=== PATIENT | male | born 1970 | race American Indian/Alaskan Native ===

== ENCOUNTER 2017-07-07 18:07 | Emergency (ER) | payer MEDICAID, MEDICARE ==
[2017-07-07 19:17] LABS: Urine Drugs of Abuse Note Disclamer
[2017-07-07 19:24] LABS: Bilirubin,Urine NEG (Negative); Blood,Urine NEG (Negative); Ketones,Urine NEG (Negative); Leukocyte Esterase,Urine NEG (Negative); Nitrite,Urine NEG (Negative); Protein,Urine <15 mg/dL mg/dL (Negative); RBC,Urine < 1.0 /HPF (0.0-6.0); Urobilinogen,Urine < 2.0 mg/dL (<2.0); WBC,Urine < 1.0 /HPF (0.0-6.0)
[2017-07-07 20:27] LABS: Anion Gap TNR mmol/L; BUN/Creatinine Ratio TNR; Blood Urea Nitrogen TNR mg/dL (9-20); Carbon Dioxide TNR mmol/L (22-30); Chloride TNR mmol/L (98-107); Potassium TNR mmol/L (3.6-5.0); Sodium TNR mmol/L (137-145)
[2017-07-07 20:28] LABS: Calcium TNR mg/dL (8.4-10.2); Glucose TNR mg/dL (75-100)
[2017-07-07 20:29] LABS: Hematocrit 43.4 % (35.5-45.6); Mean Corpuscular HGB Conc 32 % (32-34); Mean Corpuscular Hemoglobin 28 pg (28-32); Mean Corpuscular Volume 86 fl (84-94); Platelet Count 180 K/mm3 (140-440); Red Blood Count 5.06 M/mm3 (3.65-5.03); Red Cell Distribution Width 14.6 % (13.2-15.2); White Blood Count 9.2 K/mm3 (4.5-11.0)
[2017-07-07 20:55] LABS: Anion Gap 23 mmol/L; BUN/Creatinine Ratio 18; Blood Urea Nitrogen 14 mg/dL (9-20); Carbon Dioxide 25 mmol/L (22-30); Chloride 92.5 mmol/L (98-107); Glucose 89 mg/dL (75-100); Potassium 4.1 mmol/L (3.6-5.0); Sodium 136 mmol/L (137-145)
--- NOTE | 2017-07-08 03:23 | Emergency Department Report ---
HPI - General Chief Complaint: Psych Time Seen by Provider: 07/07/17 21:58 - HPI HPI: The patient's 47-year-old male who presents for evaluation of mental health. The patient reports 1 week of constant severe sadness and depression, improved with rest, associated with suicidal ideation. The patient reports hopelessness as well. He denies a plan to commit suicide.The patient denies fever, headache , unexplained weight loss or weight gain, heat or cold intolerance, skin, hair, or nail changes, neuro deficits, homicidal ideations, or auditory or visual hallucinations. ED Past Medical Hx - Past Medical History Previous Medical History?: Yes Hx Hypertension: Yes Hx Psychiatric Treatment: Yes Hx Asthma: Yes Additional medical history: Bipolar, Schizophrenia, gastric ulcers - Surgical History Past Surgical History?: Yes Additional Surgical History: testicular torsion - Social History Smoking Status: Unknown if ever smoked - Medications Home Medications: Home Medications Medication Instructions Recorded Confirmed Last Taken Type No Known Home Medications [No 07/08/17 07/08/17 Unknown History Reported Home Medications] ED Review of Systems ROS: Stated complaint: EVAL Other details as noted in HPI Constitutional: denies: fever ENT: denies: throat or neck pain Respiratory: denies: cough, shortness of breath Cardiovascular: denies: chest pain Endocrine: denies unexplained weight loss or gain Gastrointestinal: denies: abdominal pain, nausea Genitourinary: denies: dysuria Musculoskeletal: denies: leg swelling Skin: denies: rash Neurological: denies: headache Hematological/Lymphatic: denies: easy bleeding or easy bruising Psych: reports sadness or hopelessness Physical Exam - Physical Exam Vital Signs: Vital Signs 07/07/17 07/07/17 07/08/17 19:01 19:02 02:43 Temperature 97.7 F 98.0 F Pulse Rate 87 70 Respiratory 18 18 18 Rate Blood Pressure 173/126 144/92 [Left] O2 Sat by Pulse 94 94 99 Oximetry Physical Exam: General: well-nourished, well-developed, no acute distress Head: Normocephalic, atraumatic Eyes: normal sclera ENT: Mucous membranes are pink and moist Neck: trachea midline, neck supple, No neck stiffness, no cervical adenopathy Respiratory: Breath sounds equal bilaterally, no wheezing, rales, or rhonchi Cardio: S1 and S2 present, no murmurs, rubs, gallops, capillary refill is brisk Abdomen: Normoactive bowel sounds, soft abdomen, no rigidity, no guarding or rebound tenderness Musc: No pitting edema Skin: No rash Neuro: no facial drooping, normal speech Psych: Flat affect, depressed mood, positive suicidal ideation, poor insight ED Course Vital Signs 07/07/17 07/07/17 07/08/17 19:01 19:02 02:43 Temperature 97.7 F 98.0 F Pulse Rate 87 70 Respiratory 18 18 18 Rate Blood Pressure 173/126 144/92 [Left] O2 Sat by Pulse 94 94 99 Oximetry ED Medical Decision Making - Lab Data Result diagrams: 07/07/17 20:15 07/07/17 20:20 - Medical Decision Making The patient was seen and examined by myself. The patient is placed on a monitor and storage bin tender and continuous pulse ox. On initial evaluation, the patient was found to be in no distress. Labs are obtained. Lab results revealed elevated EtOH level of 0.21, and otherwise labs are grossly unremarkable. The patient is medically clear. Mental health is consulted. Mental health evaluates the patient and agrees that the patient is at risk of harm to self. A 1013 is completed. The patient will be admitted to a psychiatric facility once bed placement is obtained. Critical care attestation.: If time is entered above; I have spent that time in minutes in the direct care of this critically ill patient, excluding procedure time. ED Disposition Clinical Impression: Suicidal ideation, Alcohol abuse Depressed Qualifiers: Depression Type: major depressive disorder Major depression recurrence: single episode Active/Remission status: currently active Major depression episode severity: severe Psychotic features: without psychotic features Qualified Code(s ): F32.2 - Major depressive disorder, single episode, severe without psychotic features Disposition: DC/TX-65 PSY HOSP/PSY UNIT Is pt being admited?: No Does the pt Need Aspirin: No Condition: Stable Referrals: PRIMARY CARE [Primary Care Provider] - 3-5 Days Time of Disposition: 03:22
[2017-07-08] MEDS ORDERED: ALUM-MAG HYDROX-SIMETH 200-200-20MG/5ML PO PRN (09:00)
[2017-07-08] MEDS ORDERED: TYLENOL PO PRN (09:00)
[2017-07-08] MEDS ORDERED: MILK OF MAGNESIA PO PRN (10:00)
[2017-07-08] MEDS ORDERED: CATAPRES PO ONE (21:30)
[2017-07-08] MEDS ORDERED: CATAPRES ONE (21:35)
[2017-07-08 21:41] VITALS: BP 162/103
== END 2017-07-08 20:05 ==
LOC: ED 18:07 → EEVIPCON 18:07 → ED 07-08 20:05
DX: R45.851 Suicidal ideations (principal); F10.10 Alcohol abuse, uncomplicated; F32.9 Major depressive disorder, single episode, unspecified; I10 Essential (primary) hypertension; J45.909 Unspecified asthma, uncomplicated; F20.9 Schizophrenia, unspecified
CPT/HCPCS: 36415; 80048; 80307; 81001; 85025; 99284; G0480; 80320

== ENCOUNTER 2017-10-04 13:52 | Emergency (ER) | payer MEDICARE, MEDICAID ==
[2017-10-04 15:31] LABS: Bilirubin,Urine NEG (Negative); Blood,Urine NEG (Negative); Color,Urine Red (Yellow); Protein,Urine <15 mg/dL mg/dL (Negative); Urobilinogen,Urine < 2.0 mg/dL (<2.0)
[2017-10-04 15:34] LABS: Amphetamine Screen,Urine PRESUMPTIVE NEGATIVE; Benzodiazepines Screen,Urine PRESUMPTIVE NEGATIVE; Cannabinoid Screen,Urine PRESUMPTIVE NEGATIVE; Cocaine Screen,Urine PRESUMPTIVE NEGATIVE; Methadone Screen,Urine PRESUMPTIVE NEGATIVE; Opiate Screen,Urine PRESUMPTIVE NEGATIVE
[2017-10-04 17:31] LABS: BUN/Creatinine Ratio 14; Blood Urea Nitrogen 11 mg/dL (9-20); Calcium 8.7 mg/dL (8.4-10.2); Hemolysis Index 39
[2017-10-04 17:32] LABS: Basophils % (Auto) 0.3 % (0.0-1.8); Eosinophils # (Auto) 0.1 K/mm3 (0.0-0.4); Eosinophils % (Auto) 1.1 % (0.0-4.3); Hematocrit 45.6 % (35.5-45.6); Hemoglobin 14.9 gm/dl (11.8-15.2); Lymphocytes # (Auto) 2.5 K/mm3 (1.2-5.4); Lymphocytes % (Auto) 29.6 % (13.4-35.0); Mean Corpuscular HGB Conc 33 % (32-34); Mean Corpuscular Hemoglobin 28 pg (28-32); Mean Corpuscular Volume 86 fl (84-94); Monocytes # (Auto) 0.5 K/mm3 (0.0-0.8); Monocytes % (Auto) 5.5 % (0.0-7.3); Platelet Count 221 K/mm3 (140-440); Red Blood Count 5.31 M/mm3 (3.65-5.03); Red Cell Distribution Width 14.7 % (13.2-15.2)
--- NOTE | 2017-10-04 18:07 | Emergency Department Report ---
HPI - General Chief Complaint: Psych Time Seen by Provider: 10/04/17 17:29 - HPI HPI: The patient a 47-year-old male who presents for evaluation of mental health. The patient reports constant and severe sadness and depression exacerbated with alcohol use. He states that he has previously experienced suicidal ideation prior to my eval but that he has been free of suicidal ideation since arriving to the ER. He states that he had no plan of how he might commit suicide. The patient denies fever, headache, unexplained weight loss or weight gain, heat or cold intolerance, skin, hair, or nail changes, neuro deficits, homicidal ideations, or auditory or visual hallucinations. He also states that he would like assistance with detox. ED Past Medical Hx - Past Medical History Hx Hypertension: Yes Hx Psychiatric Treatment: Yes Hx Asthma: Yes Additional medical history: Bipolar, Schizophrenia, gastric ulcers - Surgical History Additional Surgical History: testicular torsion - Social History Smoking Status: Never Smoker Substance Use Type: Alcohol - Medications Home Medications: Home Medications Medication Instructions Recorded Confirmed Last Taken Type Acamprosate Calcium 333 mg PO TID 07/08/17 07/08/17 Unknown History Antacid [Alum-Mag Hydrox-Simeth 30 ml PO Q6HR PRN 07/08/17 07/08/17 Unknown History [id number]/5Ml Susp] Bismuth Subsalicylate 262 mg PO QDAY PRN 07/08/17 07/08/17 Unknown History [Pepto-Bismol] Cefdinir 300 mg PO Q12H 07/08/17 07/08/17 Unknown History Citalopram [celeXA] 20 mg PO QDAY 07/08/17 07/08/17 Unknown History Disulfiram (Nf) [Antabuse (Nf)] 250 mg PO DAILY 07/08/17 07/08/17 Unknown History Docusate Sodium [Colace] 100 mg PO BID PRN 07/08/17 07/08/17 Unknown History Fluticasone [Flonase] 1 spray NS QDAY 07/08/17 07/08/17 Unknown History Hydrochlorothiazide [HCTZ] 25 mg PO QDAY 07/08/17 07/08/17 Unknown History Lisinopril [Zestril TAB] 40 mg PO QDAY 07/08/17 07/08/17 Unknown History Loperamide [Imodium] 2 mg PO QID 07/08/17 07/08/17 Unknown History Meclizine [Antivert] 25 mg PO TID PRN 07/08/17 07/08/17 Unknown History Multivitamin [Multiple Vitamins] 1 each PO QDAY 07/08/17 07/08/17 Unknown History Naproxen [Naprosyn] 500 mg PO BID PRN 07/08/17 07/08/17 Unknown History Neomycin/Bacitracin/Polymyxinb 1 each TP QID 07/08/17 07/08/17 Unknown History [Triple Antibiotic Ointment] QUEtiapine [SEROquel] 200 mg PO QHS 07/08/17 07/08/17 Unknown History cloNIDine [Catapres] 0.1 mg PO QDAY 07/08/17 07/08/17 Unknown History diphenhydrAMINE [Benadryl CAP] 50 mg PO Q4HR PRN 07/08/17 07/08/17 Unknown History guaiFENesin [Mucinex] 1,200 mg PO Q12HR 07/08/17 07/08/17 Unknown History ED Review of Systems ROS: Stated complaint: SUICIDAL THOUGHTS Other details as noted in HPI Constitutional: denies: fever ENT: denies: throat or neck pain Respiratory: denies: cough, shortness of breath Cardiovascular: denies: chest pain Endocrine: denies unexplained weight loss or gain Gastrointestinal: denies: abdominal pain, nausea Genitourinary: denies: dysuria Musculoskeletal: denies: leg swelling Skin: denies: rash Neurological: denies: headache Hematological/Lymphatic: denies: easy bleeding or easy bruising Psych: reports sadness or hopelessness Physical Exam - Physical Exam Vital Signs: Vital Signs 10/04/17 14:59 Temperature 97.8 F Pulse Rate 78 Respiratory 16 Rate Blood Pressure 137/91 O2 Sat by Pulse 99 Oximetry Physical Exam: General: well-nourished, well-developed, no acute distress Head: Normocephalic, atraumatic Eyes: normal sclera ENT: Mucous membranes are pink and moist Neck: trachea midline, neck supple, No neck stiffness, no cervical adenopathy Respiratory: Breath sounds equal bilaterally, no wheezing, rales, or rhonchi Cardio: S1 and S2 present, no murmurs, rubs, gallops, capillary refill is brisk Abdomen: Normoactive bowel sounds, soft abdomen, no tenderness Musc: No pitting edema Skin: No rash Neuro: no facial drooping, normal speech Psych: Normal affect, depressed mood, tearful, normal insight, normal behavior, no current suicidal or homicidal ideations, no hallucinations ED Course Vital Signs 10/04/17 14:59 Temperature 97.8 F Pulse Rate 78 Respiratory 16 Rate Blood Pressure 137/91 O2 Sat by Pulse 99 Oximetry ED Medical Decision Making - Lab Data Result diagrams: 10/04/17 16:47 10/04/17 16:47 - Medical Decision Making The patient was seen and examined by myself. The patient is placed on a director of cardiac cath lab and continuous pulse ox. On initial evaluation, the patient was found to be in no distress. Labs are obtained. Lab results revealed elevated alcohol level of 0.21 collected at 1650, and otherwise are grossly unremarkable. The patient is medically clear. Mental health is consulted. Mental health evaluates the patient and agrees that the patient is negative for signs concerning for risk of harm to himself. Mental health provided the patient with resources for outpatient rehab. Repeat alcohol level will be collected at 4 AM. If the patient's etoh level has normalized and the patient is clinically sober, he'll be discharged home. The patient signed out to the night physician. Critical care attestation.: If time is entered above; I have spent that time in minutes in the direct care of this critically ill patient, excluding procedure time. ED Disposition Clinical Impression: Depression, acute, Dehydration, ETOH abuse Disposition: DC-01 TO HOME OR SELFCARE Is pt being admited?: No Does the pt Need Aspirin: No Condition: Stable Instructions: Depression (ED), Abuse of Alcohol (ED), Suicide Prevention for Adults (ED) Referrals: PRIMARY CARE, [Primary Care Provider] - 3-5 Days [facility] [Outside] - 3-5 Days Time of Disposition: 19:11
[2017-10-04] MEDS ORDERED: VITAMIN B-1 100 MG, FOLVITE 1 MG, INFUVITE 10 ML in NACL 0.9% 1000 ML 1,000 ML IV ONE (19:00)
[2017-10-05] MEDS: KEPPRA PO SCH ×3 (11:02→21:02)
--- NOTE | 2017-10-05 15:04 | Consultation ---
History of Present Illness - Reason for Consult Consult date: 10/05/17 Reason for consult: Mental Health Evaluation Requesting physician: FEDE WAY - Chief Complaint Chief complaint: "I want help" - History of Present Psychiatric Illness The patient a 47-year-old male who presents for evaluation of mental health. The patient reports constant and severe sadness and depression exacerbated with alcohol use. Today the patient is calm and cooperative during the assessment. He stated that he is dealing with a lot of family issues reference his daughter and granddaughter. He stated that he has increased his drinking (etoh) on the weekends because he think about his family issues he is experiencing. He stated drinking alcohol for 20 plus years with multiple rehabs services in the past. He stated having suicidal thoughts that has transitioned to SI's without a plan. He stated that he was dx with Bipolar DO several years ago and take Seroquel and Celexa. He denies HI's and AVH's now, but stated hearing voices in the past. He denies erratic sleep and a poor appetite. He denies any manic episodes recently. He denies recreational drug use. Discussed with the patient Celexa and Seroquel can cause severe QTC prolongation. I explained to the patient the safety concern reference taking both medications. He stated that he would like to continue taking the Seroquel. Medications and Allergies Allergies Allergy/AdvReac Type Severity Reaction Status Date / Time haloperidol [From Haldol] Allergy Unknown Verified 07/07/17 19:04 ibuprofen [From Motrin] Allergy Unknown Verified 07/07/17 19:04 Home Medications Medication Instructions Recorded Confirmed Last Taken Type Acamprosate Calcium 333 mg PO TID 07/08/17 07/08/17 Unknown History Antacid [Alum-Mag Hydrox-Simeth 30 ml PO Q6HR PRN 07/08/17 07/08/17 Unknown History [id number]/5Ml Susp] Bismuth Subsalicylate 262 mg PO QDAY PRN 07/08/17 07/08/17 Unknown History [Pepto-Bismol] Cefdinir 300 mg PO Q12H 07/08/17 07/08/17 Unknown History Citalopram [celeXA] 20 mg PO QDAY 07/08/17 07/08/17 Unknown History Disulfiram (Nf) [Antabuse (Nf)] 250 mg PO DAILY 07/08/17 07/08/17 Unknown History Docusate Sodium [Colace] 100 mg PO BID PRN 07/08/17 07/08/17 Unknown History Fluticasone [Flonase] 1 spray NS QDAY 07/08/17 07/08/17 Unknown History Hydrochlorothiazide [HCTZ] 25 mg PO QDAY 07/08/17 07/08/17 Unknown History Lisinopril [Zestril TAB] 40 mg PO QDAY 07/08/17 07/08/17 Unknown History Loperamide [Imodium] 2 mg PO QID 07/08/17 07/08/17 Unknown History Meclizine [Antivert] 25 mg PO TID PRN 07/08/17 07/08/17 Unknown History Multivitamin [Multiple Vitamins] 1 each PO QDAY 07/08/17 07/08/17 Unknown History Naproxen [Naprosyn] 500 mg PO BID PRN 07/08/17 07/08/17 Unknown History Neomycin/Bacitracin/Polymyxinb 1 each TP QID 07/08/17 07/08/17 Unknown History [Triple Antibiotic Ointment] QUEtiapine [SEROquel] 200 mg PO QHS 07/08/17 07/08/17 Unknown History cloNIDine [Catapres] 0.1 mg PO QDAY 07/08/17 07/08/17 Unknown History diphenhydrAMINE [Benadryl CAP] 50 mg PO Q4HR PRN 07/08/17 07/08/17 Unknown History guaiFENesin [Mucinex] 1,200 mg PO Q12HR 07/08/17 07/08/17 Unknown History Active Meds: Active Medications Levetiracetam (Keppra) 500 mg PO TID [facility] Last Admin: 10/05/17 11:02 Dose: 500 mg Past psychiatric history - Past Medical History Past Medical History: seizures Past Surgical History: No surgical history - past Psychiatric treatment and history Psych: Bipolar psychiatric treatment history: Multiple inpatient psy setting in the past. Denies a fam psy hx. - Social History Social history: lives with family Mental Status Exam - Vital signs Last Vital Signs Temp 98.2 F 10/04/17 20:00 Pulse 88 10/04/17 20:00 Resp 19 10/04/17 20:00 BP 150/85 10/04/17 20:00 Pulse Ox 98 10/04/17 20:00 - Exam Narrative exam: MSE: Appearance: calm, cooperative Behavior: poor eye contact Speech: regular rate and tone Mood: "depressed" Affect: flat Thought Process: circumstantial Thought Content: denies HI's and AVH's Motor Activity: ambulatory Cognition: A/O x3 Insight: variable Judgment: variable Results Result Diagrams: 10/04/17 16:47 10/04/17 16:47 Abnormal lab results 10/04/17 10/04/17 10/04/17 Range/Units 16:47 16:47 16:47 RBC (3.65-5.03) M/mm3 Sodium 132 L (137-145) mmol/L Chloride 92.4 L (98-107) mmol/L Carbon Dioxide 20 L (22-30) mmol/L Glucose 74 L (75-100) mg/dL Salicylates < 0.3 L (2.8-20.0) mg/dL Plasma/Serum Alcohol 0.21 H (0-0.07) % 10/04/17 Range/Units 16:47 RBC 5.31 H (3.65-5.03) M/mm3 Sodium (137-145) mmol/L Chloride (98-107) mmol/L Carbon Dioxide (22-30) mmol/L Glucose (75-100) mg/dL Salicylates (2.8-20.0) mg/dL Plasma/Serum Alcohol (0-0.07) % All other labs normal. Assessment and Plan Assessment and plan: Impression: Hx of Bipolar DO. Alcohol Use DO. Alcohol intoxication on admission. Today the patient is calm and cooperative during the assessment. The patient endorses SI's. DDx: Schizoaffective DO, R/O Alcohol Induced Mood DO Recommendation/Plan: Continue 1013 with placement to inpatient psy services. Start Seroquel 300 mg PO HS for mood. Discussed possible metabolic side effects of Seroquel with patient.
[2017-10-05] MEDS ORDERED: CATAPRES PO ONE (17:44)
[2017-10-05] MEDS ORDERED: ZESTRIL PO SCH (18:00)
[2017-10-06] MEDS: KEPPRA PO SCH ×3 (09:09→21:40)
--- NOTE | 2017-10-06 10:20 | Progress Note ---
Subjective - Reason for Consult Consult date: 10/06/17 Reason for consult: Psychiatry Follow-up - Chief Complaint Chief complaint: "Hello" The patient a 47-year-old male who presents for evaluation of mental health. The patient reports constant and severe sadness and depression exacerbated with alcohol use. Today the patient is calm and cooperative during the assessment. He stated that he still feel suicidal and is adamant about wanting to stop drinking (etoh). He stated that his "mental health" is priority at this time. He denies HI's and AVH's. He denies any side effects of his medication. Mental Status Exam - Vital signs Last Vital Signs Temp 97.7 F 10/06/17 08:28 Pulse 94 H 10/06/17 08:28 Resp 18 10/06/17 10:01 BP 131/94 10/06/17 08:28 Pulse Ox 100 10/06/17 08:28 - Exam Narrative exam: MSE: Appearance: calm, cooperative Behavior: regular eye contact Speech: regular rate and tone Mood: "okay" Affect: flat Thought Process: circumstantial Thought Content: denies HI's and AVH's Motor Activity: ambulatory Cognition: A/O x3 Insight: variable Judgment: variable Assessment and Plan Impression: Hx of Bipolar DO. Alcohol Use DO. Alcohol intoxication on admission. Today the patient is calm and cooperative during the assessment. The patient endorses SI's without a plan. DDx: Schizoaffective DO, R/O Alcohol Induced Mood DO Recommendation/Plan: Continue 1013 with placement to inpatient psy services. Continue Seroquel 300 mg PO HS for mood. Discussed possible metabolic side effects of Seroquel with patient.
[2017-10-07] MEDS: KEPPRA PO SCH ×3 (08:14→20:53)
[2017-10-07 20:51] VITALS: BP 143/109
== END 2017-10-08 01:09 | disposition home or self-care (01) ==
LOC: ED 13:52 → EEVIPCON 13:52 → ED 10-08 01:09
DX: F32.9 Major depressive disorder, single episode, unspecified (principal); E86.0 Dehydration; I10 Essential (primary) hypertension; J45.909 Unspecified asthma, uncomplicated; F10.10 Alcohol abuse, uncomplicated
CPT/HCPCS: 36415; 80048; 80307; 81001; 85025; 96365; 96366; 99285; G0480; J3411; J7030; 80320

== ENCOUNTER 2019-03-12 20:33 | Emergency (ER) | payer MEDICARE ==
[2019-03-12 21:43] VITALS: BP 133/87
--- NOTE | 2019-03-12 22:04 | Emergency Department Report ---
ED General Adult HPI - General Chief complaint: Alcohol Stated complaint: MH EVAL Time Seen by Provider: 03/12/19 21:59 Source: EMS Mode of arrival: Stretcher Limitations: No Limitations - History of Present Illness Initial comments: 48 y.o. male with history of alcohol abuse and obesity with recent discharge from rehab yesterday presents after fall. Patient states that he fell on his but. Family was unable to get him up and call EMS. Patient has had multiple drinks today. patient denies LOC. patient has had no chest pain or shortness of breath. Patient denies extremity pain or neck pain. Patient ambulatory in the ER. - Related Data Home Medications Medication Instructions Recorded Confirmed Last Taken Acamprosate Calcium 333 mg PO TID 07/08/17 10/07/17 Unknown Antacid [Alum-Mag Hydrox-Simeth 30 ml PO Q6HR PRN 07/08/17 10/07/17 Unknown [id number]/5Ml Susp] Bismuth Subsalicylate 262 mg PO QDAY PRN 07/08/17 10/07/17 Unknown [Pepto-Bismol] Citalopram [celeXA] 20 mg PO QDAY 07/08/17 10/07/17 Unknown Docusate Sodium [Colace] 100 mg PO BID PRN 07/08/17 10/07/17 Unknown Fluticasone [Flonase] 1 spray NS QDAY 07/08/17 10/07/17 Unknown Loperamide [Imodium] 2 mg PO QID 07/08/17 10/07/17 Unknown Naproxen [Naprosyn] 500 mg PO BID PRN 07/08/17 10/07/17 Unknown QUEtiapine [SEROquel] 200 mg PO QHS 07/08/17 10/07/17 Unknown cloNIDine [Catapres] 0.1 mg PO QDAY 07/08/17 10/07/17 Unknown guaiFENesin [Mucinex] 1,200 mg PO Q12HR 07/08/17 10/07/17 Unknown hydroCHLOROthiazide [HCTZ] 25 mg PO QDAY 07/08/17 10/07/17 Unknown Allergies Allergy/AdvReac Type Severity Reaction Status Date / Time haloperidol [From Haldol] Allergy Unknown Verified 07/07/17 19:04 ibuprofen [From Motrin] Allergy Unknown Verified 07/07/17 19:04 ED Review of Systems ROS: Stated complaint: MH EVAL Other details as noted in HPI Constitutional: denies: chills, fever Eyes: denies: eye pain, eye discharge, vision change ENT: denies: ear pain, throat pain Respiratory: denies: cough, shortness of breath, wheezing Cardiovascular: denies: chest pain, palpitations Endocrine: no symptoms reported Gastrointestinal: denies: abdominal pain, nausea, diarrhea Genitourinary: denies: urgency, dysuria Musculoskeletal: denies: back pain, joint swelling, arthralgia Skin: denies: rash, lesions Neurological: denies: headache, weakness, paresthesias Psychiatric: denies: anxiety, depression Hematological/Lymphatic: denies: easy bleeding, easy bruising ED Past Medical Hx - Past Medical History Previous Medical History?: Yes Hx Hypertension: Yes Hx Psychiatric Treatment: Yes Hx Asthma: Yes Additional medical history: Bipolar, Schizophrenia, gastric ulcers - Surgical History Past Surgical History?: Yes Additional Surgical History: testicular torsion - Social History Smoking Status: Current Every Day Smoker Substance Use Type: Alcohol - Medications Home Medications: Home Medications Medication Instructions Recorded Confirmed Last Taken Type Acamprosate Calcium 333 mg PO TID 07/08/17 10/07/17 Unknown History Antacid [Alum-Mag Hydrox-Simeth 30 ml PO Q6HR PRN 07/08/17 10/07/17 Unknown History [id number]/5Ml Susp] Bismuth Subsalicylate 262 mg PO QDAY PRN 07/08/17 10/07/17 Unknown History [Pepto-Bismol] Citalopram [celeXA] 20 mg PO QDAY 07/08/17 10/07/17 Unknown History Docusate Sodium [Colace] 100 mg PO BID PRN 07/08/17 10/07/17 Unknown History Fluticasone [Flonase] 1 spray NS QDAY 07/08/17 10/07/17 Unknown History Loperamide [Imodium] 2 mg PO QID 07/08/17 10/07/17 Unknown History Naproxen [Naprosyn] 500 mg PO BID PRN 07/08/17 10/07/17 Unknown History QUEtiapine [SEROquel] 200 mg PO QHS 07/08/17 10/07/17 Unknown History cloNIDine [Catapres] 0.1 mg PO QDAY 07/08/17 10/07/17 Unknown History guaiFENesin [Mucinex] 1,200 mg PO Q12HR 07/08/17 10/07/17 Unknown History hydroCHLOROthiazide [HCTZ] 25 mg PO QDAY 07/08/17 10/07/17 Unknown History ED Physical Exam - General Limitations: No Limitations General appearance: alert, in no apparent distress, other (ambulatory; smells of ETOH but alert; obese) - Head Head exam: Present: atraumatic, normocephalic - Eye Eye exam: Present: normal appearance - ENT ENT exam: Present: mucous membranes moist - Neck Neck exam: Present: normal inspection - Respiratory Respiratory exam: Present: normal lung sounds bilaterally. Absent: respiratory distress - Cardiovascular Cardiovascular Exam: Present: regular rate, normal rhythm. Absent: systolic mur mur, diastolic murmur, rubs, gallop - GI/Abdominal GI/Abdominal exam: Present: soft, normal bowel sounds - Rectal Rectal exam: Present: deferred - Extremities Exam Extremities exam: Present: normal inspection - Back Exam Back exam: Present: normal inspection - Neurological Exam Neurological exam: Present: alert, oriented X3, CN II-XII intact, normal gait - Psychiatric Psychiatric exam: Present: normal affect, normal mood - Skin Skin exam: Present: warm, dry, intact, normal color. Absent: rash ED Course Vital Signs 03/12/19 03/12/19 21:41 21:54 Temperature 97.7 F Pulse Rate 68 Respiratory 16 16 Rate Blood Pressure 133/87 O2 Sat by Pulse 97 97 Oximetry ED Medical Decision Making - Medical Decision Making Patient ambulatory and in no acute distress. Patient to be discharged to follow up with PCP. Critical care attestation.: If time is entered above; I have spent that time in minutes in the direct care of this critically ill patient, excluding procedure time. ED Disposition Clinical Impression: Alcohol abuse Disposition: DC-01 TO HOME OR SELFCARE Is pt being admited?: No Does the pt Need Aspirin: No Condition: Stable Instructions: Abuse of Alcohol (ED) Referrals: PRIMARY CARE, [Primary Care Provider] - 3-5 Days EVIN JAMES MD [Staff Physician] - 3-5 Days Time of Disposition: 22:07 Print Language: M[place]ENEGR[place]
== END 2019-03-12 23:08 | disposition home or self-care (01) ==
LOC: EEVIPCON 20:33 → ED 20:33
DX: F10.10 Alcohol abuse, uncomplicated (principal); I10 Essential (primary) hypertension; J45.909 Unspecified asthma, uncomplicated; F25.0 Schizoaffective disorder, bipolar type; F17.200 Nicotine dependence, unspecified, uncomplicated; Z79.899 Other long term (current) drug therapy; Z88.8 Allergy status to other drugs, medicaments and biological substances
CPT/HCPCS: 99283

== ENCOUNTER 2021-01-16 01:18 | Emergency (ER) | payer MEDICARE ==
[2021-01-16 01:54] LABS: Basophils # (Auto) 0.1 K/mm3 (0.0-0.1); Basophils % (Auto) 0.8 % (0.0-1.8); Eosinophils # (Auto) 0.2 K/mm3 (0.0-0.4); Eosinophils % (Auto) 3.1 % (0.0-4.3); Hematocrit 37.1 % (35.5-45.6); Hemoglobin 12.5 gm/dl (11.8-15.2); Lymphocytes # (Auto) 2.3 K/mm3 (1.2-5.4); Lymphocytes % (Auto) 33.8 % (13.4-35.0); Mean Corpuscular HGB Conc 34 % (32-34); Mean Corpuscular Volume 85 fl (84-94); Monocytes # (Auto) 0.5 K/mm3 (0.0-0.8); Monocytes % (Auto) 6.8 % (0.0-7.3); Platelet Count 199 K/mm3 (140-440); Red Blood Count 4.35 M/mm3 (3.65-5.03); Red Cell Distribution Width 15.6 % (13.2-15.2)
[2021-01-16 02:14] LABS: BUN/Creatinine Ratio 11; Blood Urea Nitrogen 10 mg/dL (9-20); Calcium 8.5 mg/dL (8.4-10.2); Hemolysis Index 4
[2021-01-16 02:53] LABS: Bacteria,Urine 1+ /HPF (Negative); Bilirubin,Urine NEG (Negative); Blood,Urine NEG (Negative); Color,Urine Colorless (Yellow); Mucus,Urine FEW /HPF; Protein,Urine <15 mg/dL mg/dL (Negative); Urobilinogen,Urine < 2.0 mg/dL (<2.0)
[2021-01-16 02:54] LABS: Amphetamine Screen,Urine Negative; Benzodiazepines Screen,Urine Negative; Cannabinoid Screen,Urine Negative; Cocaine Screen,Urine Negative; Methadone Screen,Urine Negative; Opiate Screen,Urine Negative
--- NOTE | 2021-01-16 03:30 | Emergency Department Report ---
ED Psych HPI - General Chief Complaint: Psych Stated Complaint: MH Time Seen by Provider: 01/16/21 03:03 Source: patient, EMS Mode of arrival: Ambulatory - History of Present Illness Initial Comments: Patient is a 50-year-old male past medical history of schizophrenia who presents with suicidal ideation he says the voices in his head are trying to tell him to kill himself. Patient does not have a defined plan on how he is going to hurt himself. He states that he has been off his medication he denies having any pain or any nausea. MD Complaint: suicidal ideation - Related Data Home Medications Medication Instructions Recorded Confirmed Last Taken Acamprosate Calcium 333 mg PO TID 07/08/17 10/07/17 Unknown Antacid [Alum-Mag Hydrox-Simeth 30 ml PO Q6HR PRN 07/08/17 10/07/17 Unknown [id number]/5Ml Susp] Bismuth Subsalicylate 262 mg PO QDAY PRN 07/08/17 10/07/17 Unknown [Pepto-Bismol] Citalopram [celeXA] 20 mg PO QDAY 07/08/17 10/07/17 Unknown Docusate Sodium [Colace] 100 mg PO BID PRN 07/08/17 10/07/17 Unknown Fluticasone [Flonase] 1 spray NS QDAY 07/08/17 10/07/17 Unknown Loperamide [Imodium] 2 mg PO QID 07/08/17 10/07/17 Unknown Naproxen [Naprosyn] 500 mg PO BID PRN 07/08/17 10/07/17 Unknown QUEtiapine [SEROquel] 200 mg PO QHS 07/08/17 10/07/17 Unknown cloNIDine [Catapres] 0.1 mg PO QDAY 07/08/17 10/07/17 Unknown guaiFENesin [Mucinex] 1,200 mg PO Q12HR 07/08/17 10/07/17 Unknown hydroCHLOROthiazide [HCTZ] 25 mg PO QDAY 07/08/17 10/07/17 Unknown Allergies Allergy/AdvReac Type Severity Reaction Status Date / Time haloperidol [From Haldol] Allergy Unknown Verified 07/07/17 19:04 ibuprofen [From Motrin] Allergy Unknown Verified 11/14/17 19:04 ED Review of Systems ROS: Stated complaint: MH Other details as noted in HPI Constitutional: denies: chills, fever Eyes: denies: eye pain, eye discharge, vision change ENT: denies: ear pain, throat pain Respiratory: denies: cough, shortness of breath, wheezing Cardiovascular: denies: chest pain, palpitations Endocrine: no symptoms reported Gastrointestinal: denies: abdominal pain, nausea, diarrhea Genitourinary: denies: urgency, dysuria Musculoskeletal: denies: back pain, joint swelling, arthralgia Skin: denies: rash, lesions Neurological: denies: headache, weakness, paresthesias Psychiatric: suicidal thoughts. denies: anxiety, depression Hematological/Lymphatic: denies: easy bleeding, easy bruising ED Past Medical Hx - Past Medical History Previous Medical History?: Yes Hx Hypertension: Yes Hx Psychiatric Treatment: Yes Hx Asthma: Yes Additional medical history: Bipolar, Schizophrenia, gastric ulcers - Surgical History Past Surgical History?: Yes Additional Surgical History: testicular torsion - Social History Smoking Status: Never Smoker Substance Use Type: Alcohol - Medications Home Medications: Home Medications Medication Instructions Recorded Confirmed Last Taken Type Acamprosate Calcium 333 mg PO TID 07/08/17 10/07/17 Unknown History Antacid [Alum-Mag Hydrox-Simeth 30 ml PO Q6HR PRN 07/08/17 10/07/17 Unknown History [id number]/5Ml Susp] Bismuth Subsalicylate 262 mg PO QDAY PRN 07/08/17 10/07/17 Unknown History [Pepto-Bismol] Citalopram [celeXA] 20 mg PO QDAY 07/08/17 10/07/17 Unknown History Docusate Sodium [Colace] 100 mg PO BID PRN 07/08/17 10/07/17 Unknown History Fluticasone [Flonase] 1 spray NS QDAY 07/08/17 10/07/17 Unknown History Loperamide [Imodium] 2 mg PO QID 07/08/17 10/07/17 Unknown History Naproxen [Naprosyn] 500 mg PO BID PRN 07/08/17 10/07/17 Unknown History QUEtiapine [SEROquel] 200 mg PO QHS 07/08/17 10/07/17 Unknown History cloNIDine [Catapres] 0.1 mg PO QDAY 07/08/17 10/07/17 Unknown History guaiFENesin [Mucinex] 1,200 mg PO Q12HR 07/08/17 10/07/17 Unknown History hydroCHLOROthiazide [HCTZ] 25 mg PO QDAY 07/08/17 10/07/17 Unknown History ED Physical Exam - General Limitations: No Limitations General appearance: alert, in no apparent distress - Head Head exam: Present: atraumatic, normocephalic - Eye Eye exam: Present: normal appearance - ENT ENT exam: Present: mucous membranes moist - Neck Neck exam: Present: normal inspection - Respiratory Respiratory exam: Present: normal lung sounds bilaterally. Absent: respiratory distress - Cardiovascular Cardiovascular Exam: Present: regular rate, normal rhythm. Absent: systolic murmur, diastolic murmur, rubs, gallop - GI/Abdominal GI/Abdominal exam: Present: soft, normal bowel sounds - Rectal Rectal exam: Present: deferred - Extremities Exam Extremities exam: Present: normal inspection - Back Exam Back exam: Present: normal inspection - Neurological Exam Neurological exam: Present: alert, oriented X3 - Psychiatric Psychiatric exam: Present: suicidal ideation - Skin Skin exam: Present: warm, dry, intact, normal color. Absent: rash ED Course Vital Signs 01/16/21 03:14 Respiratory 18 Rate O2 Sat by Pulse 97 Oximetry ED Medical Decision Making - Lab Data Result diagrams: 01/16/21 01:46 01/16/21 01:46 Lab Results 01/16/21 01/16/21 01/16/21 Range/Units 01:46 01:46 01:46 WBC (4.5-11.0) K/mm3 RBC (3.65-5.03) M/mm3 Hgb (11.8-15.2) gm/dl Hct (35.5-45.6) % MCV (84-94) fl MCH (28-32) pg MCHC (32-34) % RDW (13.2-15.2) % Plt Count (140-440) K/mm3 Lymph % (Auto) (13.4-35.0) % [place] % (Auto) (0.0-7.3) % Eos % (Auto) (0.0-4.3) % Baso % (Auto) (0.0-1.8) % Lymph # (Auto) (1.2-5.4) K/mm3 [place] # (Auto) (0.0-0.8) K/mm3 Eos # (Auto) (0.0-0.4) K/mm3 Baso # (Auto) (0.0-0.1) K/mm3 Seg Neutrophils % (40.0-70.0) % Seg Neutrophils # (1.8-7.7) K/mm3 Sodium 135 L (137-145) mmol/L Potassium 3.8 (3.6-5.0) mmol/L Chloride 95.8 L (98-107) mmol/L Carbon Dioxide 25 (22-30) mmol/L Anion Gap 18 mmol/L BUN 10 (9-20) mg/dL Creatinine 0.9 (0.8-1.3) mg/dL Estimated GFR > 60 ml/min BUN/Creatinine Ratio 11 % Glucose 93 (75-100) mg/dL Calcium 8.5 (8.4-10.2) mg/dL Urine Color (Yellow) Urine Turbidity (Clear) Urine pH (5.0-7.0) Ur Specific [place] (1.003-1.030) Urine Protein (Negative) mg/dL Urine Glucose (UA) (Negative) mg/dL Urine Ketones (Negative) mg/dL Urine Blood (Negative) Urine Nitrite (Negative) Urine Bilirubin (Negative) Urine Urobilinogen (<2.0) mg/dL Ur Leukocyte Esterase (Negative) Urine WBC (Auto) (0.0-6.0) /HPF Urine RBC (Auto) (0.0-6.0) /HPF Urine Bacteria (Auto) (Negative) /HPF Urine Mucus /HPF Salicylates 0.6 L (2.8-20.0) mg/dL Urine Opiates Screen Urine Methadone Screen Acetaminophen 5.0 L (10.0-30.0) ug/mL Ur Barbiturates Screen Ur Phencyclidine Scrn Ur Amphetamines Screen U Benzodiazepines Scrn Urine Cocaine Screen U Marijuana (THC) Screen Drugs of Abuse Note Plasma/Serum Alcohol (0-0.07) % 01/16/21 01/16/21 01/16/21 Range/Units 01:46 01:46 Unknown WBC 6.9 (4.5-11.0) K/mm3 RBC 4.35 (3.65-5.03) M/mm3 Hgb 12.5 (11.8-15.2) gm/dl Hct 37.1 (35.5-45.6) % MCV 85 (84-94) fl MCH 29 (28-32) pg MCHC 34 (32-34) % RDW 15.6 H (13.2-15.2) % Plt Count 199 (140-440) K/mm3 Lymph % (Auto) 33.8 (13.4-35.0) % [place] % (Auto) 6.8 (0.0-7.3) % Eos % (Auto) 3.1 (0.0-4.3) % Baso % (Auto) 0.8 (0.0-1.8) % Lymph # (Auto) 2.3 (1.2-5.4) K/mm3 [place] # (Auto) 0.5 (0.0-0.8) K/mm3 Eos # (Auto) 0.2 (0.0-0.4) K/mm3 Baso # (Auto) 0.1 (0.0-0.1) K/mm3 Seg Neutrophils % 55.5 (40.0-70.0) % Seg Neutrophils # 3.9 (1.8-7.7) K/mm3 Sodium (137-145) mmol/L Potassium (3.6-5.0) mmol/L Chloride (98-107) mmol/L Carbon Dioxide (22-30) mmol/L Anion Gap mmol/L BUN (9-20) mg/dL Creatinine (0.8-1.3) mg/dL Estimated GFR ml/min BUN/Creatinine Ratio % Glucose (75-100) mg/dL Calcium (8.4-10.2) mg/dL Urine Color Colorless (Yellow) Urine Turbidity Clear (Clear) Urine pH 5.0 (5.0-7.0) Ur Specific [place] 1.002 L (1.003-1.030) Urine Protein <15 mg/dl (Negative) mg/dL Urine Glucose (UA) Neg (Negative) mg/dL Urine Ketones Neg (Negative) mg/dL Urine Blood Neg (Negative) Urine Nitrite Neg (Negative) Urine Bilirubin Neg (Negative) Urine Urobilinogen < 2.0 (<2.0) mg/dL Ur Leukocyte Esterase Neg (Negative) Urine WBC (Auto) 1.0 (0.0-6.0) /HPF Urine RBC (Auto) 1.0 (0.0-6.0) /HPF Urine Bacteria (Auto) 1+ (Negative) /HPF Urine Mucus Few /HPF Salicylates (2.8-20.0) mg/dL Urine Opiates Screen Urine Methadone Screen Acetaminophen (10.0-30.0) ug/mL Ur Barbiturates Screen Ur Phencyclidine Scrn Ur Amphetamines Screen U Benzodiazepines Scrn Urine Cocaine Screen U Marijuana (THC) Screen Drugs of Abuse Note Plasma/Serum Alcohol 0.23 H (0-0.07) % 01/16/21 Range/Units Unknown WBC (4.5-11.0) K/mm3 RBC (3.65-5.03) M/mm3 Hgb (11.8-15.2) gm/dl Hct (35.5-45.6) % MCV (84-94) fl MCH (28-32) pg MCHC (32-34) % RDW (13.2-15.2) % Plt Count (140-440) K/mm3 Lymph % (Auto) (13.4-35.0) % [place] % (Auto) (0.0-7.3) % Eos % (Auto) (0.0-4.3) % Baso % (Auto) (0.0-1.8) % Lymph # (Auto) (1.2-5.4) K/mm3 [place] # (Auto) (0.0-0.8) K/mm3 Eos # (Auto) (0.0-0.4) K/mm3 Baso # (Auto) (0.0-0.1) K/mm3 Seg Neutrophils % (40.0-70.0) % Seg Neutrophils # (1.8-7.7) K/mm3 Sodium (137-145) mmol/L Potassium (3.6-5.0) mmol/L Chloride (98-107) mmol/L Carbon Dioxide (22-30) mmol/L Anion Gap mmol/L BUN (9-20) mg/dL Creatinine (0.8-1.3) mg/dL Estimated GFR ml/min BUN/Creatinine Ratio % Glucose (75-100) mg/dL Calcium (8.4-10.2) mg/dL Urine Color (Yellow) Urine Turbidity (Clear) Urine pH (5.0-7.0) Ur Specific [place] (1.003-1.030) Urine Protein (Negative) mg/dL Urine Glucose (UA) (Negative) mg/dL Urine Ketones (Negative) mg/dL Urine Blood (Negative) Urine Nitrite (Negative) Urine Bilirubin (Negative) Urine Urobilinogen (<2.0) mg/dL Ur Leukocyte Esterase (Negative) Urine WBC (Auto) (0.0-6.0) /HPF Urine RBC (Auto) (0.0-6.0) /HPF Urine Bacteria (Auto) (Negative) /HPF Urine Mucus /HPF Salicylates (2.8-20.0) mg/dL Urine Opiates Screen Negative Urine Methadone Screen Negative Acetaminophen (10.0-30.0) ug/mL Ur Barbiturates Screen Negative Ur Phencyclidine Scrn Negative Ur Amphetamines Screen Negative U Benzodiazepines Scrn Negative Urine Cocaine Screen Negative U Marijuana (THC) Screen Negative Drugs of Abuse Note Disclamer Plasma/Serum Alcohol (0-0.07) % - Medical Decision Making Cdx: Suicidal ideation ddx: Substance induced mood disorder, psychosis I will sign 1013 I will get blood work and I will consult psychiatry. Critical care attestation.: If time is entered above; I have spent that time in minutes in the direct care of this critically ill patient, excluding procedure time. ED Disposition Clinical Impression: Suicidal ideation Disposition: [id number]/TX-65 PSY HOSP/PSY UNIT Is pt being admited?: No Does the pt Need Aspirin: No Condition: Stable
--- NOTE | 2021-01-16 10:26 | Event Note ---
Date: 01/16/21 Patient is resting well in no acute distress. No overnight issue. Vital signs reviewed and blood pressure is 162/101. Alcohol level is 0.23. Repeat alcohol level ordered. I reviewed patient medication record and patient was taking clonidine 0.1 mg daily and hydrochlorothiazide 25 mg daily. I restarted both medication.
[2021-01-16] MEDS ORDERED: cloNIDine 0.1 MG TAB PO SCH (11:00)
[2021-01-16] MEDS ORDERED: hydroCHLOROthiazide 25 MG TAB PO SCH (11:00)
--- NOTE | 2021-01-16 11:02 | Consultation ---
History of Present Illness - Reason for Consult Consult date: 01/16/21 Reason for consult: SI, hallucinations, depressed, alcohol use - History of Present Psychiatric Illness Per ED Note: Patient is a 50-year-old male past medical history of schizophrenia who presents with suicidal ideation he says the voices in his head are trying to tell him to kill himself. Patient does not have a defined plan on how he is going to hurt himself. He states that he has been off his medication he denies having any pain or any nausea. The patient was seen today, he is lying down. The is calm and cooperative. He makes poor eye contact. The patient states that he's depressed, and SI. He says he's hearing voices telling him to kill himself. He says he has a history of "bipolar schizophrenia and been off my meds about 11 days." He denies any illicit drug use. The patient says he drinks "a lot of alcohol a day." He says his last drink was before coming in PAST PSYCHIATRIC HISTORY Diagnoses: Schizophrenia, bipolar Suicide attempts or Self-harm behavior: Denies Prior psychiatric hospitalizations: Yes Substance Abuse history: Alcohol Previous psychiatric medications tried: Seroquel, celexa Outpatient treatment: Yes PAST MEDICAL HISTORY: None reported Family Psychiatric History: None reported or documented SOCIAL HISTORY Marital Status: Single Living Arrangements: with his mother Employment Status: disabled Access to guns/weapons: Denies Education: high school History of Abuse: none reported Legal History: none REVIEW OF SYSTEMS Constitutional: Negative for weight loss ENT: Negative for stridor Respiratory: Negative for cough or hemoptysis All other systems reviewed and are negative MENTAL STATUS EXAMINATION General Appearance and Behavior: Age appropriate, not wearing appropriate clothes, poor eye contact, cooperative polite with questioning. Cooperation: Participating/engaged Psychomotor Behavior: Psychomotor normal Mood: Depressed Affect and affective range: Restricted Thought Process: illogical Thought Content: SI, hallucinations Speech: Normal tone and pace Suicidal Ideation: Yes Homicidal Ideation: Denies HI Hallucinations: Auditory Delusions: None elicited Insight and Judgment: Limited insight and judgment Memory: Limited Attention: Divided attention impaired Orientation: Alert, oriented Assessment: Schizophrenia Treatment Plan 1013 Start Home Seroquel 200mg po BID (will increase tomorrow to home dose if still here) Start home Celexa 20mg po daily Start Trazodone 50mg po qhs Risks, benefits and alternatives of medications discussed with the patient, questions answered and consent obtained from patient. PSYCHOTHERAPY: Supportive psychotherapy provided MEDICAL: Per primary team DELIRIUM PRECAUTIONS: Please re-orient patient frequently, keep lights on during the day, and minimize benzodiazepines and opiates as these medications could worsen patient's confusion. 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 Case discussed with Dr. Rodriguez who agrees with current disposition FOLLOW-UP: Will follow Thank you for the consult. Please contact with any questions and/or concerns. Medications and Allergies Allergies Allergy/AdvReac Type Severity Reaction Status Date / Time haloperidol [From Haldol] Allergy Unknown Verified 07/07/17 19:04 ibuprofen [From Motrin] Allergy Unknown Verified 07/07/17 19:04 Home Medications Medication Instructions Recorded Confirmed Last Taken Type Acamprosate Calcium 333 mg PO TID 07/08/17 10/07/17 Unknown History Antacid [Alum-Mag Hydrox-Simeth 30 ml PO Q6HR PRN 07/08/17 10/07/17 Unknown History [id number]/5Ml Susp] Bismuth Subsalicylate 262 mg PO QDAY PRN 07/08/17 10/07/17 Unknown History [Pepto-Bismol] Citalopram [celeXA] 20 mg PO QDAY 07/08/17 10/07/17 Unknown History Docusate Sodium [Colace] 100 mg PO BID PRN 07/08/17 10/07/17 Unknown History Fluticasone [Flonase] 1 spray NS QDAY 07/08/17 10/07/17 Unknown History Loperamide [Imodium] 2 mg PO QID 07/08/17 10/07/17 Unknown History Naproxen [Naprosyn] 500 mg PO BID PRN 07/08/17 10/07/17 Unknown History QUEtiapine [SEROquel] 200 mg PO QHS 07/08/17 10/07/17 Unknown History cloNIDine [Catapres] 0.1 mg PO QDAY 07/08/17 10/07/17 Unknown History guaiFENesin [Mucinex] 1,200 mg PO Q12HR 07/08/17 10/07/17 Unknown History hydroCHLOROthiazide [HCTZ] 25 mg PO QDAY 07/08/17 10/07/17 Unknown History Active Meds: Active Medications Clonidine HCl (Clonidine 0.1 Mg Tab) 0.1 mg PO QDAY [facility] Hydrochlorothiazide (Hydrochlorothiazide 25 Mg Tab) 25 mg PO QDAY [facility] Mental Status Exam - Vital signs Last Vital Signs Temp Pulse Resp 18 01/16/21 03:14 BP Pulse Ox 97 01/16/21 03:14 Results Result Diagrams: 01/16/21 01:46 01/16/21 01:46 Abnormal lab results 01/16/21 01/16/21 01/16/21 Range/Units 01:46 01:46 01:46 RDW (13.2-15.2) % Sodium 135 L (137-145) mmol/L Chloride 95.8 L (98-107) mmol/L Ur Specific [place] (1.003-1.030) Salicylates 0.6 L (2.8-20.0) mg/dL Acetaminophen 5.0 L (10.0-30.0) ug/mL Plasma/Serum Alcohol (0-0.07) % 01/16/21 01/16/21 01/16/21 Range/Units 01:46 01:46 Unknown RDW 15.6 H (13.2-15.2) % Sodium (137-145) mmol/L Chloride (98-107) mmol/L Ur Specific [place] 1.002 L (1.003-1.030) Salicylates (2.8-20.0) mg/dL Acetaminophen (10.0-30.0) ug/mL Plasma/Serum Alcohol 0.23 H (0-0.07) % All other labs normal.
[2021-01-16] MEDS ORDERED: chlordiazePOXIDE 25 MG CAP PO PRN (11:10)
[2021-01-16] MEDS: QUEtiapine 200 MG TAB PO SCH ×2 (11:55→21:39)
[2021-01-16] MEDS ORDERED: LORazepam 2 MG/ML VIAL IV PRN (12:00)
[2021-01-16] MEDS ORDERED: CITALOPRAM 20 MG TAB PO SCH (12:00)
[2021-01-16 19:54] VITALS: BP 102/75
[2021-01-16] MEDS ORDERED: traZODone 50 MG TAB PO SCH (22:00)
== END 2021-01-16 22:04 ==
LOC: EEVIPCON 01:18 → ED 01:18
DX: R45.851 Suicidal ideations (principal); Z20.822 Contact with and (suspected) exposure to COVID-19; I10 Essential (primary) hypertension; J45.909 Unspecified asthma, uncomplicated; Z98.890 Other specified postprocedural states; Z79.899 Other long term (current) drug therapy; Z88.8 Allergy status to other drugs, medicaments and biological substances
CPT/HCPCS: 36415; 80048; 80307; 80320; 81001; 85025; G0480; J2060; U0003

== ENCOUNTER 2021-02-27 20:10 | Emergency (ER) | payer MEDICARE ==
[2021-02-27] MEDS ORDERED: diphenhydrAMINE 25 MG CAP PO PRN (20:52)
[2021-02-27] MEDS ORDERED: LORazepam 2 MG/ML VIAL IM PRN (20:52)
--- NOTE | 2021-02-27 20:54 | Emergency Department Report ---
ED General Adult HPI - General Chief complaint: Psych Stated complaint: SI PUI?: No Time Seen by Provider: 02/27/21 20:47 Source: patient, EMS ( EMS documentation not available at time of chart dictation ), RN notes reviewed, old records reviewed Mode of arrival: Ambulatory Limitations: No Limitations - History of Present Illness Initial comments: Patient is a 50-year-old gentleman with a history of body mass index greater portia n 40, alcoholism, bipolar, schizophrenia, gastric ulcers, hypertension, and alcohol abuse. He presents to the ER today with a complaint of painless suicidality, and feeling generally depressed. He denies physical pain. He denies hallucinations. He states he does not want to overdose. He has not received his Covid vaccination. He denies Covid symptomatology. He reports numerous psychosocial stressors, including not being able to see family. He states he does not have a diagnosis of obstructive sleep apnea. He states his symptoms are constant, painless, do not radiate anywhere, and he does not describe exacerbating or relieving factors. As per triage nursing documentation, the patient reports that he has been off of his medications for 1 month, and wants to cut his throat. -: Gradual, days(s), week(s) Quality: other Consistency: other Improves with: other Worsens with: other Associated Symptoms: other - Related Data Home Medications Medication Instructions Recorded Confirmed Last Taken Acamprosate Calcium 333 mg PO TID 07/08/17 01/16/21 Unknown Antacid [Alum-Mag Hydrox-Simeth 30 ml PO Q6HR PRN 07/08/17 01/16/21 Unknown [id number] Susp] Bismuth Subsalicylate 262 mg PO QDAY PRN 07/08/17 01/16/21 Unknown [Pepto-Bismol] Docusate Sodium [Colace] 100 mg PO BID PRN 07/08/17 01/16/21 Unknown Fluticasone [Flonase] 1 spray NS QDAY 07/08/17 01/16/21 Unknown Loperamide [Imodium] 2 mg PO QID 07/08/17 01/16/21 Unknown Naproxen [Naprosyn] 500 mg PO BID PRN 07/08/17 01/16/21 Unknown guaiFENesin [Mucinex] 1,200 mg PO Q12HR 07/08/17 01/16/21 Unknown hydroCHLOROthiazide [HCTZ] 25 mg PO QDAY 07/08/17 01/16/21 Unknown Previous Rx's Medication Instructions Recorded Last Taken Type Citalopram [Celexa] 20 mg PO QDAY #30 tab 01/23/21 Unknown Rx QUEtiapine [SEROquel] 200 mg PO QHS #30 tab 01/23/21 Unknown Rx cloNIDine [Catapres] 0.1 mg PO QDAY #30 tab 01/23/21 Unknown Rx Allergies Allergy/AdvReac Type Severity Reaction Status Date / Time haloperidol [From Haldol] Allergy Unknown Verified 07/07/17 19:04 ibuprofen [From Motrin] Allergy Unknown Verified 07/07/17 19:04 ED Review of Systems ROS: Stated complaint: SI Other details as noted in HPI Constitutional: other (Denies loss of taste and smell). denies: fever Eyes: denies: eye discharge ENT: denies: epistaxis Respiratory: denies: cough Cardiovascular: denies: chest pain Genitourinary: denies: dysuria Musculoskeletal: denies: back pain Psychiatric: depression, suicidal thoughts ED Past Medical Hx - Past Medical History Previous Medical History?: Yes Hx Hypertension: Yes Hx Congestive Heart Failure: No Hx Diabetes: No Hx Psychiatric Treatment: Yes (Bipolar, Schizophrenia) Hx Asthma: Yes Hx COPD: No Additional medical history: Bipolar, Schizophrenia, gastric ulcers, ETOH - Surgical History Past Surgical History?: Yes Additional Surgical History: testicular torsion - Social History Smoking Status: Never Smoker - Medications Home Medications: Home Medications Medication Instructions Recorded Confirmed Last Taken Type Acamprosate Calcium 333 mg PO TID 07/08/17 01/16/21 Unknown History Antacid [Alum-Mag Hydrox-Simeth 30 ml PO Q6HR PRN 07/08/17 01/16/21 Unknown History [id number] Susp] Bismuth Subsalicylate 262 mg PO QDAY PRN 07/08/17 01/16/21 Unknown History [Pepto-Bismol] Docusate Sodium [Colace] 100 mg PO BID PRN 07/08/17 01/16/21 Unknown History Fluticasone [Flonase] 1 spray NS QDAY 07/08/17 01/16/21 Unknown History Loperamide [Imodium] 2 mg PO QID 07/08/17 01/16/21 Unknown History Naproxen [Naprosyn] 500 mg PO BID PRN 07/08/17 01/16/21 Unknown History guaiFENesin [Mucinex] 1,200 mg PO Q12HR 07/08/17 01/16/21 Unknown History hydroCHLOROthiazide [HCTZ] 25 mg PO QDAY 07/08/17 01/16/21 Unknown History Citalopram [Celexa] 20 mg PO QDAY #30 tab 01/23/21 Unknown Rx QUEtiapine [SEROquel] 200 mg PO QHS #30 tab 01/23/21 Unknown Rx cloNIDine [Catapres] 0.1 mg PO QDAY #30 tab 01/23/21 Unknown Rx ED Physical Exam - General Limitations: No Limitations General appearance: alert, in no apparent distress, obese - Head Head exam: Present: atraumatic, normocephalic - Eye Eye exam: Present: normal appearance (Patient has a chronic strabismus.), EOMI - ENT ENT exam: Present: normal exam, normal orophraynx, mucous membranes moist, normal external ear exam - Neck Neck exam: Present: normal inspection, full ROM. Absent: tenderness, meningismus - Respiratory Respiratory exam: Present: normal lung sounds bilaterally. Absent: respiratory distress, wheezes, rales, rhonchi, stridor, decreased breath sounds - Cardiovascular Cardiovascular Exam: Present: regular rate, normal rhythm, normal heart sounds. Absent: bradycardia, irregular rhythm, systolic murmur, diastolic murmur, rubs, gallop - GI/Abdominal GI/Abdominal exam: Present: soft. Absent: distended, tenderness, guarding, rebound, rigid - Rectal Rectal exam: Present: deferred - Extremities Exam Extremities exam: Present: normal inspection (Scar tissue noted on left medial lower extremity, consistent with distant surgical history of left leg injury), full ROM, pedal edema (1+ edema bilateral lower extremities.), other (2+ pulses noted in the bilateral upper and lower extremities. There is no palpable cord. negative Homans sign. Muscular compartments are soft. The pelvis is stable.). Absent: calf tenderness - Back Exam Back exam: Present: normal inspection, full ROM. Absent: tenderness, CVA tenderness (R), CVA tenderness (L), paraspinal tenderness, vertebral tenderness - Neurological Exam Neurological exam: Present: alert, oriented X3, normal gait, other (No facial droop. Tongue midline. Extraocular movements intact bilaterally. Facial sensation intact to light touch in V1, V2, V3 distribution bilaterally. 5 and a 5 strength in 4 extremities. Sensation intact to light touch in 4 extremities.). Absent: motor sensory deficit - Psychiatric Psychiatric exam: Present: flat affect, suicidal ideation - Skin Skin exam: Present: warm, dry, intact, normal color. Absent: rash ED Course Vital Signs 02/27/21 02/27/21 21:41 21:43 Temperature 97.6 F Pulse Rate 86 Respiratory 18 18 Rate Blood Pressure 149/78 [Left] O2 Sat by Pulse 96 96 Oximetry - Reevaluation(s) Reevaluation #1: 02/27/21 21:49 Differential diagnosis, including but not limited to: Alcoholism, obesity, depression, suicidality, medical clearance for psychiatric placement Assessment and plan: 50-year-old gentleman, who is calm and cooperative, afebrile, with reassuring vital signs, who denies acute medical complaints today, presenting primarily for psychiatric evaluation. Patient placed on hold status. Appropriate laboratory studies ordered. Mental health consultation requested. Have requested that nursing team reconcile home medications. Order Covid swab in anticipation of possible psychiatric disposition. Have discussed this plan of care with the patient, who verbalized understanding, who is amenable to this plan of care. Reassess after laboratory studies have resulted. 02/27/21 22:45 Laboratory studies reviewed and appreciated. Patient found to have elevated blood alcohol level. Elevated CK minimum, given young age, normal renal functi on, ability to tolerate oral feeds, this will decrease on its own with rest and oral hydration. At this point in time, this patient does not appear to have an immediate medical contraindication to psychiatric evaluation, consultation and placement. If the psychiatric team recommends outpatient discharge, at this point time, there does not appear to be an immediate medical contraindication to discharge. ED Medical Decision Making - Lab Data Result diagrams: 02/27/21 21:02 02/27/21 21:02 Vital Signs 02/27/21 02/27/21 21:41 21:43 Temperature 97.6 F Pulse Rate 86 Respiratory 18 18 Rate Blood Pressure 149/78 [Left] O2 Sat by Pulse 96 96 Oximetry Lab Results 02/27/21 02/27/21 Range/Units Unknown Unknown Urine Color Colorless (Yellow) Urine Turbidity Clear (Clear) Urine pH 5.0 (5.0-7.0) Ur Specific [place] 1.002 L (1.003-1.030) Urine Protein <15 mg/dl (Negative) mg/dL Urine Glucose (UA) Neg (Negative) mg/dL Urine Ketones Neg (Negative) mg/dL Urine Blood Neg (Negative) Urine Nitrite Neg (Negative) Urine Bilirubin Neg (Negative) Urine Urobilinogen < 2.0 (<2.0) mg/dL Ur Leukocyte Esterase Neg (Negative) Urine WBC (Auto) 1.0 (0.0-6.0) /HPF Urine RBC (Auto) < 1.0 (0.0-6.0) /HPF Hyaline Casts 1 /LPF Urine Mucus Few /HPF Urine Opiates Screen Negative Urine Methadone Screen Negative Ur Barbiturates Screen Negative Ur Phencyclidine Scrn Negative Ur Amphetamines Screen Negative U Benzodiazepines Scrn Negative Urine Cocaine Screen Negative U Marijuana (THC) Screen Negative Drugs of Abuse Note Disclamer Labs 02/27/21 02/27/21 02/27/21 21:02 21:02 21:02 WBC RBC Hgb Hct MCV MCH MCHC RDW Plt Count Sodium 136 L Potassium 3.9 Chloride 100.1 Carbon Dioxide 21 L Anion Gap 19 BUN 14 Creatinine 0.7 L Estimated GFR > 60 BUN/Creatinine Ratio 20 Glucose 80 Calcium 9.1 Magnesium 1.90 Total Creatine Kinase 545 H Urine Color Urine Turbidity Urine pH Ur Specific [place] Urine Protein Urine Glucose (UA) Urine Ketones Urine Blood Urine Nitrite Urine Bilirubin Urine Urobilinogen Ur Leukocyte Esterase Urine WBC (Auto) Urine RBC (Auto) Hyaline Casts Urine Mucus Salicylates < 0.3 L Urine Opiates Screen Urine Methadone Screen Acetaminophen < 5.0 L Ur Barbiturates Screen Ur Phencyclidine Scrn Ur Amphetamines Screen U Benzodiazepines Scrn Urine Cocaine Screen U Marijuana (THC) Screen Drugs of Abuse Note Plasma/Serum Alcohol 02/27/21 02/27/21 02/27/21 21:02 21:02 Unknown WBC 5.4 RBC 4.59 Hgb 13.2 Hct 39.5 MCV 86 MCH 29 MCHC 33 RDW 15.9 H Plt Count 205 Sodium Potassium Chloride Carbon Dioxide Anion Gap BUN Creatinine Estimated GFR BUN/Creatinine Ratio Glucose Calcium Magnesium Total Creatine Kinase Urine Color Colorless Urine Turbidity Clear Urine pH 5.0 Ur Specific [place] 1.002 L Urine Protein <15 mg/dl Urine Glucose (UA) Neg Urine Ketones Neg Urine Blood Neg Urine Nitrite Neg Urine Bilirubin Neg Urine Urobilinogen < 2.0 Ur Leukocyte Esterase Neg Urine WBC (Auto) 1.0 Urine RBC (Auto) < 1.0 Hyaline Casts 1 Urine Mucus Few Salicylates Urine Opiates Screen Urine Methadone Screen Acetaminophen Ur Barbiturates Screen Ur Phencyclidine Scrn Ur Amphetamines Screen U Benzodiazepines Scrn Urine Cocaine Screen U Marijuana (THC) Screen Drugs of Abuse Note Plasma/Serum Alcohol 0.17 H 02/27/21 Unknown WBC RBC Hgb Hct MCV MCH MCHC RDW Plt Count Sodium Potassium Chloride Carbon Dioxide Anion Gap BUN Creatinine Estimated GFR BUN/Creatinine Ratio Glucose Calcium Magnesium Total Creatine Kinase Urine Color Urine Turbidity Urine pH Ur Specific [place] Urine Protein Urine Glucose (UA) Urine Ketones Urine Blood Urine Nitrite Urine Bilirubin Urine Urobilinogen Ur Leukocyte Esterase Urine WBC (Auto) Urine RBC (Auto) Hyaline Casts Urine Mucus Salicylates Urine Opiates Screen Negative Urine Methadone Screen Negative Acetaminophen Ur Barbiturates Screen Negative Ur Phencyclidine Scrn Negative Ur Amphetamines Screen Negative U Benzodiazepines Scrn Negative Urine Cocaine Screen Negative U Marijuana (THC) Screen Negative Drugs of Abuse Note Disclamer Plasma/Serum Alcohol Critical care attestation.: If time is entered above; I have spent that time in minutes in the direct care of this critically ill patient, excluding procedure time. ED Disposition Clinical Impression: Medical clearance for psychiatric admission, Alcohol intoxication Disposition: [id number] PSY HOSP/PSY UNIT Is pt being admited?: No Does the pt Need Aspirin: No Condition: Good
[2021-02-27 21:17] LABS: Bilirubin,Urine NEG (Negative); Blood,Urine NEG (Negative); Color,Urine Colorless (Yellow); Hyaline Casts,Urine 1 /LPF; Mucus,Urine FEW /HPF; Protein,Urine <15 mg/dL mg/dL (Negative); RBC,Urine < 1.0 /HPF (0.0-6.0); Urobilinogen,Urine < 2.0 mg/dL (<2.0)
[2021-02-27 21:25] LABS: Amphetamine Screen,Urine Negative; Benzodiazepines Screen,Urine Negative; Cannabinoid Screen,Urine Negative; Cocaine Screen,Urine Negative; Methadone Screen,Urine Negative; Opiate Screen,Urine Negative
[2021-02-27] MEDS ORDERED: DOCUSATE SODIUM 100 MG CAP PO PRN (21:42)
[2021-02-27] MEDS ORDERED: LORazepam 2 MG TAB PO PRN (21:43)
[2021-02-27] MEDS ORDERED: DEXTROSE 50% IN WATER (25GM) 50 ML VIAL IV PRN (21:43)
[2021-02-27] MEDS ORDERED: chlordiazePOXIDE 25 MG CAP PO PRN ×2 (21:43)
[2021-02-27 22:01] LABS: Hematocrit 39.5 % (35.5-45.6); Hemoglobin 13.2 gm/dl (11.8-15.2); Mean Corpuscular HGB Conc 33 % (32-34); Mean Corpuscular Volume 86 fl (84-94); Platelet Count 205 K/mm3 (140-440); Red Blood Count 4.59 M/mm3 (3.65-5.03); Red Cell Distribution Width 15.9 % (13.2-15.2)
[2021-02-27 22:05] LABS: Blood Urea Nitrogen 14 mg/dL (9-20); Calcium 9.1 mg/dL (8.4-10.2); Hemolysis Index 10
[2021-02-27 22:07] LABS: BUN/Creatinine Ratio 20
[2021-02-28] MEDS: levETIRAcetam 500 MG TAB PO SCH ×2 (00:07→11:00)
[2021-02-28] MEDS ORDERED: MULTIVITAMINS ,THERAPEUTIC TAB PO SCH (10:00)
[2021-02-28] MEDS ORDERED: cloNIDine 0.1 MG TAB PO SCH (10:00)
[2021-02-28] MEDS ORDERED: hydroCHLOROthiazide 25 MG TAB PO SCH (10:00)
--- NOTE | 2021-02-28 10:01 | Consultation ---
History of Present Illness - Reason for Consult Consult date: 02/28/21 Reason for consult: SI/Hallucinations - History of Present Psychiatric Illness Per ER Note: Patient is a 50-year-old gentleman with a history of body mass index greater than 40, alcoholism, bipolar, schizophrenia, gastric ulcers, hypertension, and alcohol abuse. He presents to the ER today with a complaint of painless suicidality, and feeling generally depressed. He denies physical pain. He denies hallucinations. He states he does not want to overdose. He has not received his Covid vaccination. He denies Covid symptomatology. He reports numerous psychosocial stressors, including not being able to see family. The patient was seen today, he states he is "severely depressed and tired of the drinking." He says "I'm tired. I can't continue to live like this. I gotta do something different." The patient says he's suicidal and voices in his head are telling him to "go ahead and end my life. Just get it over with." He says he's been on and off his meds do to a lot of stressors in his life that keeps him up and down. PAST PSYCHIATRIC HISTORY Diagnoses: Schizophrenia, bipolar Suicide attempts or Self-harm behavior: Denies Prior psychiatric hospitalizations: Yes Substance Abuse history: Alcohol Previous psychiatric medications tried: Seroquel, celexa Outpatient treatment: Yes PAST MEDICAL HISTORY: None reported Family Psychiatric History: None reported or documented SOCIAL HISTORY Marital Status: Single Living Arrangements: with his mother Employment Status: disabled Access to guns/weapons: Denies Education: high school History of Abuse: none reported Legal History: none REVIEW OF SYSTEMS Constitutional: Negative for weight loss ENT: Negative for stridor Respiratory: Negative for cough or hemoptysis All other systems reviewed and are negative MENTAL STATUS EXAMINATION General Appearance and Behavior: Age appropriate, not wearing appropriate clothes, poor eye contact, cooperative polite with questioning. Cooperation: Participating/engaged Psychomotor Behavior: Psychomotor normal Mood: Depressed Affect and affective range: Restricted Thought Process: illogical Thought Content: SI, hallucinations Speech: Normal tone and pace Suicidal Ideation: Yes Homicidal Ideation: Denies HI Hallucinations: Auditory Delusions: None elicited Insight and Judgment: Limited insight and judgment Memory: Limited Attention: Divided attention impaired Orientation: Alert, oriented Assessment: Schizophrenia Treatment Plan 1013 Start Seroquel 300mg BID Start Celexa 10mg opo qhs Sitter: Per primary Medical: Per primary Disposition: Recommend acute psychiatric inpatient treatment Will follow. Thank you for this consult Case staffed with Dr. Rodriguez Medications and Allergies Allergies Allergy/AdvReac Type Severity Reaction Status Date / Time haloperidol [From Haldol] Allergy Unknown Verified 07/07/17 19:04 ibuprofen [From Motrin] Allergy Unknown Verified 07/07/17 19:04 Home Medications Medication Instructions Recorded Confirmed Last Taken Type Acamprosate Calcium 333 mg PO TID 07/08/17 02/28/21 Unknown History Antacid [Alum-Mag Hydrox-Simeth 30 ml PO Q6HR PRN 07/08/17 02/28/21 Unknown History [id number] Susp] Bismuth Subsalicylate 262 mg PO QDAY PRN 07/08/17 02/28/21 Unknown History [Pepto-Bismol] Docusate Sodium [Colace] 100 mg PO BID PRN 07/08/17 02/28/21 Unknown History Fluticasone [Flonase] 1 spray NS QDAY 07/08/17 02/28/21 Unknown History Loperamide [Imodium] 2 mg PO QID 07/08/17 02/28/21 Unknown History Naproxen [Naprosyn] 500 mg PO BID PRN 07/08/17 02/28/21 Unknown History guaiFENesin [Mucinex] 1,200 mg PO Q12HR 07/08/17 02/28/21 Unknown History hydroCHLOROthiazide [HCTZ] 25 mg PO QDAY 07/08/17 02/28/21 Unknown History Citalopram [Celexa] 20 mg PO QDAY #30 tab 01/23/21 02/28/21 Unknown Rx QUEtiapine [SEROquel] 200 mg PO QHS #30 tab 01/23/21 02/28/21 Unknown Rx cloNIDine [Catapres] 0.1 mg PO QDAY #30 tab 01/23/21 02/28/21 Unknown Rx Active Meds: Active Medications Chlordiazepoxide HCl (Chlordiazepoxide 25 Mg Cap) 50 mg PO Q1HR PRN PRN Reason: CIWA-Ar 8-15 Chlordiazepoxide HCl (Chlordiazepoxide 25 Mg Cap) 100 mg PO Q1HR PRN PRN Reason: CIWA-Simba 16-25 Dextrose (Dextrose 50% In Water (25gm) 50 Ml Vial) 50 gm IV Q30MIN PRN; Protocol PRN Reason: Hypoglycemia Diphenhydramine HCl (Diphenhydramine 25 Mg Cap) 50 mg PO QHS PRN PRN Reason: Insomnia Docusate Sodium (Docusate Sodium 100 Mg Cap) 100 mg PO BID PRN PRN Reason: Constipation Hydrochlorothiazide (Hydrochlorothiazide 25 Mg Tab) 25 mg PO QDAY [facility] Levetiracetam (Levetiracetam 500 Mg Tab) 500 mg PO BID LORAINE Last Admin: 02/28/21 00:07 Dose: 500 mg Documented by: Lorazepam (Lorazepam 2 Mg/Ml Vial) 2 mg IM Q4HR PRN PRN Reason: Agitation Lorazepam (Lorazepam 2 Mg Tab) 4 mg PO Q1HR PRN PRN Reason: ROMÁN-Simba Multivitamins (Multivitamins ,Therapeutic Tab) 1 each PO QDAY [facility] Mental Status Exam - Vital signs Last Vital Signs Temp 97.2 F L 02/28/21 02:00 Pulse 79 02/28/21 02:00 Resp 20 02/28/21 02:00 BP 144/71 02/28/21 02:00 Pulse Ox 97 02/28/21 02:00 Results Result Diagrams: 02/27/21 21:02 02/27/21 21:02 Abnormal lab results 02/27/21 02/27/21 02/27/21 Range/Units 21:02 21:02 21:02 RDW (13.2-15.2) % Sodium 136 L (137-145) mmol/L Carbon Dioxide 21 L (22-30) mmol/L Creatinine 0.7 L (0.8-1.3) mg/dL Total Creatine Kinase 545 H (55-170) units/L Ur Specific [place] (1.003-1.030) Salicylates < 0.3 L (2.8-20.0) mg/dL Acetaminophen < 5.0 L (10.0-30.0) ug/mL Plasma/Serum Alcohol (0-0.07) % 02/27/21 02/27/21 02/27/21 Range/Units 21:02 21:02 Unknown RDW 15.9 H (13.2-15.2) % Sodium (137-145) mmol/L Carbon Dioxide (22-30) mmol/L Creatinine (0.8-1.3) mg/dL Total Creatine Kinase (55-170) units/L Ur Specific [place] 1.002 L (1.003-1.030) Salicylates (2.8-20.0) mg/dL Acetaminophen (10.0-30.0) ug/mL Plasma/Serum Alcohol 0.17 H (0-0.07) % All other labs normal.
--- NOTE | 2021-02-28 10:29 | Event Note ---
Date: 02/28/21 Patient is 50 years old male with history of schizophrenia, bipolar disorder and chronic alcoholism. Patient presented to the ER complaining of suicidality. Patient remained calm in the ER with no overnight issues. Vital signs stable. Labs reviewed and showed alcohol level of 0.17. Waiting for psychiatric team input.
[2021-02-28] MEDS ORDERED: QUEtiapine 100 MG TAB PO SCH (11:00)
[2021-02-28] MEDS ORDERED: CITALOPRAM 10 MG TAB PO SCH (11:00)
[2021-02-28] MEDS ORDERED: LET TOPICAL (LIDOCAINE/EPINEPHRINE/TETRACAINE) 3 ML TP ONE (14:20)
[2021-02-28 21:13] VITALS: BP 134/85
== END 2021-02-28 21:20 ==
LOC: ED 20:10
DX: F10.129 Alcohol abuse with intoxication, unspecified (principal); Z20.822 Contact with and (suspected) exposure to COVID-19; Z04.6 Encounter for general psychiatric examination, requested by authority; I10 Essential (primary) hypertension; F31.9 Bipolar disorder, unspecified; F20.9 Schizophrenia, unspecified; J45.909 Unspecified asthma, uncomplicated; Z98.890 Other specified postprocedural states; Z79.899 Other long term (current) drug therapy; Z88.8 Allergy status to other drugs, medicaments and biological substances
CPT/HCPCS: 36415; 80048; 80307; 81001; 82550; 83735; 85027; 99285; U0003; 80320; G0480

== ENCOUNTER 2021-02-28 17:00 | Inpatient (IN) | payer MEDICARE ==
[2021-03-01] MEDS: QUEtiapine 200 MG TAB PO SCH ×3 (00:44→21:12)
[2021-03-01] MEDS: levETIRAcetam 500 MG TAB PO SCH ×3 (00:44→21:12)
[2021-03-01] MEDS: QUEtiapine 100 MG TAB PO SCH ×2 (00:44→09:05)
--- NOTE | 2021-03-01 07:59 | History and Physical Report ---
GP History & Physical - History of Present Illness Date of admission: 03/01/21 Date of Examination: 03/01/21 Reason for Admission: Severe anxiety/depression Chief Complaint: Suicidal Thought, Depression History of Present Illness: The patient is a 50 year old single male with a history of Bipolar, Schizophrenia and Alcohol use disorder who presents to the Ed for suicidal thoughts. During my interview with the patient, he reports a history of multiple psychiatric inpatient admissions including alcohol detoxification. He reports medical history of Seizures, "Gastric Ulcers", and Hypertension. Patient reports consuming about 12 pack of 16 ounces beer pay day, he last used alcohol on Thursday. The patient reports longest sobriety periods as three years. He reports reason for drinking as " just for the craving." Patient presents with no withdrawal symptoms, but admits cravings for alcohol. Patient reports that he has tried medication to help with cravings which he states worked for him; he reports he plans to go to a long-term alcohol rehab post discharge. Patient denies any current suicidal/homicidal ideation and denies hallucinations. PAST PSYCHIATRIC HISTORY Diagnoses: Depression, schizophrenia Suicide attempts or Self-harm behavior: None reported Prior psychiatric hospitalizations: yes Substance Abuse history: Alcohol Previous psychiatric medications tried: Seroquel, Celexa Outpatient treatment: Yes PAST MEDICAL HISTORY: Seizures, "Gastric Ulcers", and Hypertension Family Psychiatric History: Mother " unknown" SOCIAL HISTORY Marital Status: Single Living Arrangements: Lives with mother Employment Status: Unemployed Access to guns/weapons: None reported Education: 10th grade History of Abuse: None reported Legal History: None reported REVIEW OF SYSTEMS Constitutional: Negative for weight loss ENT: Negative for stridor Respiratory: Negative for cough or hemoptysis All other systems reviewed and are negative MENTAL STATUS EXAMINATION General Appearance and Behavior: Age appropriate, good hygiene, wearing appropriate clothes, poor eye contact, irritable Cooperation: uncooperative, guarded Mood: Depressed Affect and affective range: congruent with mood Thought Process: Goal directed Thought Content: Not suicidal Speech: normal tone and pace Suicidal Ideation: Denies SI Homicidal Ideation: Denies Hallucinations: Denies Delusions: Denies Impulse Control: Impaired Insight and Judgment: Limited insight and judgment, Memory: Normal Attention: Normal Orientation: Alert, oriented Assessment (1)Depression Current Visit: Yes Status: Acute Treatment Plan Patient admitted for inpatient psychiatric evaluation, medication adjustment and close monitoring The patient's behavior, mood, sleep and appetite will be closely monitored. Patient enrolled in individual and group therapeutic sessions and encouraged to attend. Patient provided with a safe and structured environment. Patient's physical health needs will be addressed by the Hospitalist. Hospitalist Consulted Labs including CBC, CMP, Lipid profile and Hemoglobin A1C levels ordered for baseline reference Social Assessment will be completed and the Visually Impaired Teacher will work with patient and family to ensure a suitable and safe disposition Medication adjustment will be made as clinically indicated Restarted home medications Usual Wellness Jew/Preservation: - Start Trazodone 50 mg po QHS & 50 mg po QHS PRN between 10 PM & 2 AM for insomnia - Start Melatonin 5 mg po QHS to promote circadian rhythm The patient agreed on the treatment plan, understood the risk, benefit, alternative treatment, potential consequence of no treatment, and gave informed consent. Initial Certification I certify that the inpatient psychiatric services are required for treatment that could reasonably be expected to improve the patient's condition. Estimated days: 7 Post hospital care: primary care provider, psychiatric provider Case staffed with Dr. Rodriguez Legal Status: Voluntary Reaction to Hospitalization: Accepting Legal Status: Voluntary Reaction to Hospitalization: Accepting Medications and Allergies Allergies Allergy/AdvReac Type Severity Reaction Status Date / Time haloperidol [From Haldol] Allergy Intermediate Unknown Verified 02/28/21 21:07 ibuprofen [From Motrin] Allergy Intermediate Unknown Verified 02/28/21 21:07 Home Medications Medication Instructions Recorded Confirmed Last Taken Type Antacid [Alum-Mag Hydrox-Simeth 30 ml PO Q6HR PRN 07/08/17 02/28/21 Unknown History [id number]/5Ml Susp] Bismuth Subsalicylate 262 mg PO QDAY PRN 07/08/17 02/28/21 Unknown History [Pepto-Bismol] Docusate Sodium [Colace] 100 mg PO BID PRN 07/08/17 02/28/21 Unknown History Fluticasone [Flonase] 1 spray NS QDAY 07/08/17 02/28/21 Unknown History hydroCHLOROthiazide [HCTZ] 25 mg PO QDAY 07/08/17 02/28/21 Unknown History Citalopram [Celexa] 10 mg PO QDAY 02/28/21 02/28/21 Unknown History QUEtiapine [SEROquel] 300 mg PO BID 02/28/21 02/28/21 Unknown History Active Meds: Active Medications Levetiracetam (Levetiracetam 500 Mg Tab) 500 mg PO BID [facility] Last Admin: 03/01/21 00:44 Dose: 500 mg Documented by: Quetiapine Fumarate (Quetiapine 100 Mg Tab) 100 mg PO BID [facility] Last Admin: 03/01/21 00:44 Dose: 100 mg Documented by: Quetiapine Fumarate (Quetiapine 200 Mg Tab) 200 mg PO BID [facility] Last Admin: 03/01/21 00:44 Dose: 200 mg Documented by: Substance History - Substance History Alcohol Use: Yes Past psychiatric history - Past Medical History Past Medical History: seizures, other Past Surgical History: Other - past Psychiatric treatment and history Psych: Bipolar, Schizophrenia - Social History Social history: single, lives with family Review of Systems All systems: negative Results - Results Labs/Vitals: Laboratory Last Values POC Glucose 85 mg/dL (70-105) 03/01/21 06:52 Physical Examination - Constitutional General appearance: Present: no acute distress Mental Status Exam - Exam Orientation: place, person Affect: depressed Mood: calm Thought content: other Thought Process: Goal Oriented Perceptions: none Speech: normal rate and pattern Concentration: distractible, other Motor activity: normal Level of consciousness: alert Memory: Intact Sleep Symptoms: None Interaction: cooperative Physician Certification - Certification Statement Physician Certification Statement: This is an acknowledgement statement that JESSICA ZAYAS is a 50 year old M who requires inpatient psychiatric admission for treatment which could reasonably be expected to improve the patient's condition for Estimated period of time patient will need to remain in the hospital: [ ] Plan for post-hospital care: [ ]
--- NOTE | 2021-03-01 18:55 | Consultation ---
History of Present Illness - Reason for Consult Consult date: 03/01/21 Medical Mx - History of Present Illness The patient is a 50 year old single male with a history of Seizures, "Gastric Ulcers", Hypertension, Bipolar, Schizophrenia and Alcohol use disorder who presents to the Ed for suicidal thoughts. Patient has history of multiple psychiatric inpatient admissions including alcohol detoxification. Patient reports consuming about 12 pack of 16 ounces beer pay day, he last used alcohol on Thursday. He reports he plans to go to a long-term alcohol rehab post discharge. Patient denies any current suicidal/homicidal ideation and denies hallucinations. PAST PSYCHIATRIC HISTORY Diagnoses: Depression, schizophrenia PAST MEDICAL HISTORY: Seizures, "Gastric Ulcers", and Hypertension Family History: Heart disease cancer or stroke running in the family. SOCIAL HISTORY: Single, Lives with mother, Unemployed. REVIEW OF SYSTEMS Constitutional: no fever, no chills, no weight loss Ears, eyes, nose, mouth and throat: no nasal congestion, no nasal discharge, no sinus pressure, no vision change, no red eye. Neck: No neck pain or rigidity. Cardiovascular: No chest pain, no orthopnea, no palpitations, no leg swelling Respiratory: No shortness of breath, no cough, no congestion, no wheezing Gastrointestinal: no abdominal pain, no nausea, no vomiting Genitourinary : no dysuria, no hematuria Musculoskeletal: no joint swelling or muscle ache Integumentary: no rash, no pruritis Neurological: no parathesias, no numbness, no tingling Endocrine: no cold or heat intolerance, no polyuria or polydipsia Hematologic/Lymphatic: no easy bruising, no easy bleeding, no gland swelling Allergic/Immunologic: no urticaria, no angioedema. Physical exam GENERAL: well-developed and morbidly obese AAM lying on bed appeared to be in no discomfort. HEENT: Normocephalic. Atraumatic. No conjunctival congestion or icterus. Patient has moist mucous membranes. NECK: Supple. Trachea midline. CHEST/LUNGS: Clear to auscultated bilaterally, breathing nonlabored. No wheezes crackles or rhonchi. HEART/CARDIOVASCULAR: Regular in rate and rhythm. S1 and S2 positive. ABDOMEN: Abdomen is soft, nontender. Patient has normal bowel sounds. SKIN: There is no rash. Warm and dry. NEURO: No focal motor deficit. Follows command. MUSCULOSKELETAL: No joint effusion or tenderness. EXTRIMITY: No edema, no cyanosis or clubbing. PSYCH: Cooperative. Assessment and plan Depression -- Patient admitted for inpatient psychiatric evaluation, medication adjustment and close monitoring --Management per primary Hypertension Peptic ulcer disease Seizure disorder Morbid obesity --Restarted home medications, continue to follow BP -- will adjust medications as needed --Outpt diet and exercise recommended Past History Past Medical History: seizures, other Past Surgical History: Other Social history: single, lives with family Medications and Allergies Allergies Allergy/AdvReac Type Severity Reaction Status Date / Time haloperidol [From Haldol] Allergy Intermediate Unknown Verified 02/28/21 21:07 ibuprofen [From Motrin] Allergy Intermediate Unknown Verified 02/28/21 21:07 Home Medications Medication Instructions Recorded Confirmed Last Taken Type Antacid [Alum-Mag Hydrox-Simeth 30 ml PO Q6HR PRN 07/08/17 02/28/21 Unknown History [id number]/5Ml Susp] Bismuth Subsalicylate 262 mg PO QDAY PRN 07/08/17 02/28/21 Unknown History [Pepto-Bismol] Docusate Sodium [Colace] 100 mg PO BID PRN 07/08/17 02/28/21 Unknown History Fluticasone [Flonase] 1 spray NS QDAY 07/08/17 02/28/21 Unknown History Citalopram [Celexa] 10 mg PO QDAY 02/28/21 02/28/21 Unknown History QUEtiapine [SEROquel] 300 mg PO BID 02/28/21 02/28/21 Unknown History amLODIPine [Norvasc] 10 mg PO DAILY 03/01/21 03/01/21 Unknown History hydroCHLOROthiazide 12.5 mg PO DAILY 03/01/21 03/01/21 Unknown History [Hydrochlorothiazide] Active Meds: Active Medications Levetiracetam (Levetiracetam 500 Mg Tab) 500 mg PO BID [facility] Last Admin: 03/01/21 09:05 Dose: 500 mg Documented by: Quetiapine Fumarate (Quetiapine 200 Mg Tab) 200 mg PO DAILY [facility] Quetiapine Fumarate (Quetiapine 200 Mg Tab) 200 mg PO QHS [facility] Exam - Constitutional Vitals: Temp Pulse Resp BP Pulse Ox 97.8 F 124 H 20 118/85 99 03/01/21 07:57 03/01/21 07:57 03/01/21 07:57 03/01/21 07:57 03/01/21 07:57
[2021-03-01] MEDS: ACETAMINOPHEN 325 MG TAB PO PRN (20:53)
[2021-03-01] MEDS: DOCUSATE SODIUM 100 MG CAP PO PRN (20:54)
[2021-03-01] MEDS ORDERED: chlordiazePOXIDE 25 MG CAP PO PRN (21:54)
[2021-03-01] MEDS ORDERED: LORazepam 2 MG TAB PO PRN (21:54)
[2021-03-01] MEDS ORDERED: QUEtiapine 200 MG TAB PO SCH (22:00)
--- NOTE | 2021-03-02 07:53 | Progress Note ---
Subjective Date of service: 03/02/21 Subjective Comment: 03/02/2021: I interviewed the patient this morning. Medical records reviewed and patient's progress was discussed with unit staff. Nursing staff reports that patient "Last evening the patient presented as angry and irritable. He complaine d about multiple issues. He was inpatient if he had to wait for anything. He still voices si but denies ah/vh/hi. His appetite is good. He is medication compliant. He became angry and "exploded" at a female peer when she crossed the line of his personal space. She was moved away and he threatened her and staff by saying "you better keep her away from me." He then removed himself from the situation and went to his room. Overnight he rested quietly. He slept around 8 hours. Will continue to monitor patient for safety." In my interview with the patient this morning, the patient reports mood as "ok". Appetite is good. Sleep last night was good. Patient continues to endorse SI with a plan to cut his throat. He denies any current withdrawal symptoms. No changes to the treatment plan today. REVIEW OF SYSTEMS Constitutional: Negative for weight loss ENT: Negative for stridor Respiratory: Negative for cough or hemoptysis All other systems reviewed and are negative MENTAL STATUS EXAMINATION General Appearance and Behavior: Age appropriate, good hygiene, wearing appropriate clothes, poor eye contact, irritable Cooperation: uncooperative, guarded Mood: "ok" Affect and affective range: congruent with mood Thought Process: Goal directed Thought Content: suicidal Speech: normal tone and pace Suicidal Ideation: SI Homicidal Ideation: Denies Hallucinations: Denies Delusions: Denies Impulse Control: Impaired Insight and Judgment: Limited insight and judgment, Memory: Normal Attention: Normal Orientation: Alert, oriented Assessment (1)Depression Current Visit: Yes Status: Acute Treatment Plan Patient admitted for inpatient psychiatric evaluation, medication adjustment and close monitoring The patient's behavior, mood, sleep and appetite will be closely monitored. Patient enrolled in individual and group therapeutic sessions and encouraged to attend. Patient provided with a safe and structured environment. Patient's physical health needs will be addressed by the Hospitalist. Hospitalist Consulted Labs including CBC, CMP, Lipid profile and Hemoglobin A1C levels ordered for baseline reference Social Assessment will be completed and the Advanced Manufacturing Engineer will work with patient and family to ensure a suitable and safe disposition Medication adjustment will be made as clinically indicated Restarted home medications Continue CIWA protocol Continue Seroquel 200mg po in the AM Continue Seroquel 400mg po QHS Usual Wellness Sabianism/Preservation: - Start Trazodone 50 mg po QHS & 50 mg po QHS PRN between 10 PM & 2 AM for insomnia - Start Melatonin 5 mg po QHS to promote circadian rhythm The patient agreed on the treatment plan, understood the risk, benefit, alternative treatment, potential consequence of no treatment, and gave informed consent. Initial Certification I certify that the inpatient psychiatric services are required for treatment that could reasonably be expected to improve the patient's condition. Estimated days: 6 Post hospital care: primary care provider, psychiatric provider Case staffed with Dr. Rodriguez Legal Status: Voluntary Reaction to Hospitalization: Accepting Legal Status: Voluntary Reaction to Hospitalization: Accepting Medications and Allergies Medications and Allergies Allergies Allergy/AdvReac Type Severity Reaction Status Date / Time haloperidol [From Haldol] Allergy Intermediate Unknown Verified 02/28/21 21:07 ibuprofen [From Motrin] Allergy Intermediate Unknown Verified 02/28/21 21:07 Home Medications Medication Instructions Recorded Confirmed Last Taken Type Antacid [Alum-Mag Hydrox-Simeth 30 ml PO Q6HR PRN 07/08/17 02/28/21 Unknown History [id number]/5Ml Susp] Bismuth Subsalicylate 262 mg PO QDAY PRN 07/08/17 02/28/21 Unknown History [Pepto-Bismol] Docusate Sodium [Colace] 100 mg PO BID PRN 07/08/17 02/28/21 Unknown History Fluticasone [Flonase] 1 spray NS QDAY 07/08/17 02/28/21 Unknown History hydroCHLOROthiazide [HCTZ] 25 mg PO QDAY 07/08/17 02/28/21 Unknown History Citalopram [Celexa] 10 mg PO QDAY 02/28/21 02/28/21 Unknown History QUEtiapine [SEROquel] 300 mg PO BID 02/28/21 02/28/21 Unknown History amLODIPine [Norvasc] 10 mg PO DAILY 03/01/21 03/01/21 Unknown History hydroCHLOROthiazide 12.5 mg PO DAILY 03/01/21 03/01/21 Unknown History [Hydrochlorothiazide] Active Meds: Active Medications Acetaminophen (Acetaminophen 325 Mg Tab) 650 mg PO Q6H PRN PRN Reason: Pain, Mild (1-3) Last Admin: 03/01/21 20:53 Dose: 650 mg Documented by: Chlordiazepoxide HCl (Chlordiazepoxide 25 Mg Cap) 50 mg PO Q1H PRN PRN Reason: ROMÁN-Simba 8-15 Docusate Sodium (Docusate Sodium 100 Mg Cap) 100 mg PO BID PRN PRN Reason: Constipation Last Admin: 03/01/21 20:54 Dose: 100 mg Documented by: Levetiracetam (Levetiracetam 500 Mg Tab) 500 mg PO BID [facility] Last Admin: 03/01/21 21:12 Dose: 500 mg Documented by: Lorazepam (Lorazepam 2 Mg Tab) 2 mg PO Q1H PRN PRN Reason: Yanira 15 Quetiapine Fumarate (Quetiapine 200 Mg Tab) 400 mg PO QHS [facility] Last Admin: 03/01/21 21:12 Dose: 400 mg Documented by: Quetiapine Fumarate (Quetiapine 200 Mg Tab) 200 mg PO DAILY [facility] Results - Results Labs/Vitals: Laboratory Last Values POC Glucose 85 mg/dL (70-105) 03/01/21 06:52 Last Vital Signs Temp 98.5 F 03/01/21 22:00 Pulse 109 H 03/01/21 22:00 Resp 18 03/01/21 22:00 BP 153/87 03/01/21 22:00 Pulse Ox 96 03/01/21 22:00
[2021-03-02] MEDS: QUEtiapine 200 MG TAB PO SCH ×2 (09:45→21:06)
[2021-03-02] MEDS: levETIRAcetam 500 MG TAB PO SCH ×2 (09:45→21:06)
[2021-03-02] MEDS ORDERED: QUEtiapine 200 MG TAB PO SCH (10:00)
[2021-03-02] MEDS: ACETAMINOPHEN 325 MG TAB PO PRN ×2 (11:08→21:07)
[2021-03-02] MEDS: DOCUSATE SODIUM 100 MG CAP PO PRN (11:08)
[2021-03-02] MEDS: amLODIPine 10 MG TAB PO SCH (22:22)
--- NOTE | 2021-03-03 08:59 | Progress Note ---
Subjective Date of service: 03/03/21 Subjective Comment: 03/02/2021: I interviewed the patient this morning. Medical records reviewed and patient's progress was discussed with unit staff. Nursing staff reports that patient "Last evening the patient presented as angry and irritable. He complaine d about multiple issues. He was inpatient if he had to wait for anything. He still voices si but denies ah/vh/hi. His appetite is good. He is medication compliant. He became angry and "exploded" at a female peer when she crossed the line of his personal space. She was moved away and he threatened her and staff by saying "you better keep her away from me." He then removed himself from the situation and went to his room. Overnight he rested quietly. He slept around 8 hours. Will continue to monitor patient for safety." In my interview with the patient this morning, the patient reports mood as "ok". Appetite is good. Sleep last night was good. Patient continues to endorse SI with a plan to cut his throat. He denies any current withdrawal symptoms. No changes to the treatment plan today. 03/03/2021: I interviewed the patient this morning. Medical records reviewed and patient's progress was discussed with unit staff. Nursing staff reports that patient " Last evening the patient was less irritable. He has little interaction with others. Patient denies si/hi/ah/vh. His appetite is good. Overnight the patient rested quietly. He slept for 8 hours. Will continue to monitor patient for safety." In my interview with the patient this morning, he was seen in the activity room eating breakfast. The patient reports doing well. He reports mood as "good." He continues to have cravings for alcohol, no other withdrawal symptoms noted. He denies any current suicidal ideation and denies hallucinations.Start Celexa 20mg daily. REVIEW OF SYSTEMS Constitutional: Negative for weight loss ENT: Negative for stridor Respiratory: Negative for cough or hemoptysis All other systems reviewed and are negative MENTAL STATUS EXAMINATION General Appearance and Behavior: Age appropriate, good hygiene, wearing appropriate clothes, poor eye contact, irritable Cooperation: uncooperative, guarded Mood: "good" Affect and affective range: congruent with mood Thought Process: Goal directed Thought Content: Not suicidal Speech: normal tone and pace Suicidal Ideation:Denies Homicidal Ideation: Denies Hallucinations: Denies Delusions: Denies Impulse Control: Impaired Insight and Judgment: Limited insight and judgment, Memory: Normal Attention: Normal Orientation: Alert, oriented Assessment (1)Depression Current Visit: Yes Status: Acute Treatment Plan Patient admitted for inpatient psychiatric evaluation, medication adjustment and close monitoring The patient's behavior, mood, sleep and appetite will be closely monitored. Patient enrolled in individual and group therapeutic sessions and encouraged to attend. Patient provided with a safe and structured environment. Patient's physical health needs will be addressed by the Hospitalist. Hospitalist Consulted Labs including CBC, CMP, Lipid profile and Hemoglobin A1C levels ordered for baseline reference Social Assessment will be completed and the Direct Support Professional Caregiver will work with patient and family to ensure a suitable and safe disposition Medication adjustment will be made as clinically indicated Restarted home medications Start Celexa 20mg daily Continue CIWA protocol Continue Seroquel 200mg po in the AM Continue Seroquel 400mg po QHS Usual Wellness Zoroastrian/Preservation: - Start Trazodone 50 mg po QHS & 50 mg po QHS PRN between 10 PM & 2 AM for insomnia - Start Melatonin 5 mg po QHS to promote circadian rhythm The patient agreed on the treatment plan, understood the risk, benefit, alternative treatment, potential consequence of no treatment, and gave informed consent. Initial Certification I certify that the inpatient psychiatric services are required for treatment that could reasonably be expected to improve the patient's condition. Estimated days: 6 Post hospital care: primary care provider, psychiatric provider Case staffed with Dr. Rodriguez Legal Status: Voluntary Reaction to Hospitalization: Accepting Legal Status: Voluntary Reaction to Hospitalization: Accepting Medications and Allergies Allergies Allergy/AdvReac Type Severity Reaction Status Date / Time haloperidol [From Haldol] Allergy Intermediate Unknown Verified 02/28/21 21:07 ibuprofen [From Motrin] Allergy Intermediate Unknown Verified 02/28/21 21:07 Home Medications Medication Instructions Recorded Confirmed Last Taken Type Antacid [Alum-Mag Hydrox-Simeth 30 ml PO Q6HR PRN 07/08/17 02/28/21 Unknown History [id number]/5Ml Susp] Bismuth Subsalicylate 262 mg PO QDAY PRN 07/08/17 02/28/21 Unknown History [Pepto-Bismol] Docusate Sodium [Colace] 100 mg PO BID PRN 07/08/17 02/28/21 Unknown History Fluticasone [Flonase] 1 spray NS QDAY 07/08/17 02/28/21 Unknown History Citalopram [Celexa] 10 mg PO QDAY 02/28/21 02/28/21 Unknown History QUEtiapine [SEROquel] 300 mg PO BID 02/28/21 02/28/21 Unknown History amLODIPine [Norvasc] 10 mg PO DAILY 03/01/21 03/01/21 Unknown History hydroCHLOROthiazide 12.5 mg PO DAILY 03/01/21 03/01/21 Unknown History [Hydrochlorothiazide] Active Meds: Active Medications Acetaminophen (Acetaminophen 325 Mg Tab) 650 mg PO Q6H PRN PRN Reason: Pain, Mild (1-3) Last Admin: 03/02/21 21:07 Dose: 650 mg Documented by: Amlodipine Besylate (Amlodipine 10 Mg Tab) 10 mg PO QDAY [facility] Last Admin: 03/02/21 22:22 Dose: 10 mg Documented by: Chlordiazepoxide HCl (Chlordiazepoxide 25 Mg Cap) 50 mg PO Q1H PRN PRN Reason: ROMÁN-Simba 8-15 Clonidine HCl (Clonidine 0.2 Mg Tab) 0.2 mg PO Q12HR [facility] Docusate Sodium (Docusate Sodium 100 Mg Cap) 100 mg PO BID PRN PRN Reason: Constipation Last Admin: 03/02/21 11:08 Dose: 100 mg Documented by: Hydrochlorothiazide (Hydrochlorothiazide 12.5 Mg Cap) 12.5 mg PO QDAY [facility] Levetiracetam (Levetiracetam 500 Mg Tab) 500 mg PO BID [facility] Last Admin: 03/02/21 21:06 Dose: 500 mg Documented by: Lorazepam (Lorazepam 2 Mg Tab) 2 mg PO Q1H PRN PRN Reason: CIWA-Ar 8-15 Quetiapine Fumarate (Quetiapine 200 Mg Tab) 400 mg PO QHS [facility] Last Admin: 03/02/21 21:06 Dose: 400 mg Documented by: Quetiapine Fumarate (Quetiapine 200 Mg Tab) 200 mg PO DAILY [facility] Last Admin: 03/02/21 09:45 Dose: 200 mg Documented by: Results - Results Labs/Vitals: Laboratory Last Values POC Glucose 85 mg/dL (70-105) 03/01/21 06:52 Last Vital Signs Temp 98.3 F 03/02/21 22:00 Pulse 86 03/02/21 22:22 Resp 16 03/02/21 22:00 BP 178/115 03/02/21 22:22 Pulse Ox 98 03/02/21 22:00
[2021-03-03] MEDS ORDERED: carvediloL 3.125 MG TAB PO SCH (10:00)
[2021-03-03] MEDS: hydroCHLOROthiazide 12.5 MG CAP PO SCH (11:02)
[2021-03-03] MEDS: DOCUSATE SODIUM 100 MG CAP PO PRN ×2 (11:02→22:06)
[2021-03-03] MEDS: QUEtiapine 200 MG TAB PO SCH ×2 (11:03→22:05)
[2021-03-03] MEDS: CITALOPRAM 20 MG TAB PO SCH (11:03)
[2021-03-03] MEDS: levETIRAcetam 500 MG TAB PO SCH ×2 (11:03→22:05)
[2021-03-03] MEDS: cloNIDine 0.2 MG TAB PO SCH ×2 (11:04→22:06)
[2021-03-03] MEDS: amLODIPine 10 MG TAB PO SCH (11:04)
[2021-03-03] MEDS: ACETAMINOPHEN 325 MG TAB PO PRN ×2 (11:05→22:05)
[2021-03-04 01:03] LABS: Basophils % (Auto) 0.3 % (0.0-1.8); Eosinophils # (Auto) 0.2 K/mm3 (0.0-0.4); Eosinophils % (Auto) 4.9 % (0.0-4.3); Hematocrit 39.3 % (35.5-45.6); Hemoglobin 13.1 gm/dl (11.8-15.2); Lymphocytes # (Auto) 1.4 K/mm3 (1.2-5.4); Mean Corpuscular HGB Conc 33 % (32-34); Mean Corpuscular Volume 85 fl (84-94); Monocytes # (Auto) 0.4 K/mm3 (0.0-0.8); Monocytes % (Auto) 10.1 % (0.0-7.3); Platelet Count 203 K/mm3 (140-440); Red Blood Count 4.64 M/mm3 (3.65-5.03); Red Cell Distribution Width 15.5 % (13.2-15.2)
--- NOTE | 2021-03-04 07:56 | Progress Note ---
Subjective Date of service: 03/04/21 Subjective Comment: 03/02/2021: I interviewed the patient this morning. Medical records reviewed and patient's progress was discussed with unit staff. Nursing staff reports that patient "Last evening the patient presented as angry and irritable. He complaine d about multiple issues. He was inpatient if he had to wait for anything. He still voices si but denies ah/vh/hi. His appetite is good. He is medication compliant. He became angry and "exploded" at a female peer when she crossed the line of his personal space. She was moved away and he threatened her and staff by saying "you better keep her away from me." He then removed himself from the situation and went to his room. Overnight he rested quietly. He slept around 8 hours. Will continue to monitor patient for safety." In my interview with the patient this morning, the patient reports mood as "ok". Appetite is good. Sleep last night was good. Patient continues to endorse SI with a plan to cut his throat. He denies any current withdrawal symptoms. No changes to the treatment plan today. 03/03/2021: I interviewed the patient this morning. Medical records reviewed and patient's progress was discussed with unit staff. Nursing staff reports that patient " Last evening the patient was less irritable. He has little interaction with others. Patient denies si/hi/ah/vh. His appetite is good. Overnight the patient rested quietly. He slept for 8 hours. Will continue to monitor patient for safety." In my interview with the patient this morning, he was seen in the activity room eating breakfast. The patient reports doing well. He reports mood as "good." He continues to have cravings for alcohol, no other withdrawal symptoms noted. He denies any current suicidal ideation and denies hallucinations.Start Celexa 20mg daily. 03/04/2021: The patient was seen this morning. Per nurse, the patient had a quiet night. In my interview with the patient, He reports having alcohol cravings. The patient states he plans to go to a rehab post discharge. He denies any current suicidal/homicidal ideation and denies hallucinations. No changes to the treatment plan today. REVIEW OF SYSTEMS Constitutional: Negative for weight loss ENT: Negative for stridor Respiratory: Negative for cough or hemoptysis All other systems reviewed and are negative MENTAL STATUS EXAMINATION General Appearance and Behavior: Age appropriate, good hygiene, wearing appropriate clothes, poor eye contact, irritable Cooperation: uncooperative, guarded Mood: "OK" Affect and affective range: congruent with mood Thought Process: Goal directed Thought Content: Not suicidal Speech: normal tone and pace Suicidal Ideation:Denies Homicidal Ideation: Denies Hallucinations: Denies Delusions: Denies Impulse Control: Impaired Insight and Judgment: Limited insight and judgment, Memory: Normal Attention: Normal Orientation: Alert, oriented Assessment (1)Depression Current Visit: Yes Status: Acute Treatment Plan Patient admitted for inpatient psychiatric evaluation, medication adjustment and close monitoring The patient's behavior, mood, sleep and appetite will be closely monitored. Patient enrolled in individual and group therapeutic sessions and encouraged to attend. Patient provided with a safe and structured environment. Patient's physical health needs will be addressed by the Hospitalist. Hospitalist Consulted Labs including CBC, CMP, Lipid profile and Hemoglobin A1C levels ordered for baseline reference Social Assessment will be completed and the Pipe Finisher will work with patient and family to ensure a suitable and safe disposition Medication adjustment will be made as clinically indicated Restarted home medications Start Celexa 20mg daily Continue CIWA protocol Continue Seroquel 200mg po in the AM Continue Seroquel 400mg po QHS Usual Wellness [employer]rian/Preservation: - Start Trazodone 50 mg po QHS & 50 mg po QHS PRN between 10 PM & 2 AM for insomnia - Start Melatonin 5 mg po QHS to promote circadian rhythm The patient agreed on the treatment plan, understood the risk, benefit, alternative treatment, potential consequence of no treatment, and gave informed consent. Initial Certification I certify that the inpatient psychiatric services are required for treatment that could reasonably be expected to improve the patient's condition. Estimated days: 6 Post hospital care: primary care provider, psychiatric provider Case staffed with Dr. Rodriguez Legal Status: Voluntary Reaction to Hospitalization: Accepting Legal Status: Voluntary Reaction to Hospitalization: Accepting Medications and Allergies Allergies Allergy/AdvReac Type Severity Reaction Status Date / Time haloperidol [From Haldol] Allergy Intermediate Unknown Verified 02/28/21 21:07 ibuprofen [From Motrin] Allergy Intermediate Unknown Verified 02/28/21 21:07 Home Medications Medication Instructions Recorded Confirmed Last Taken Type Antacid [Alum-Mag Hydrox-Simeth 30 ml PO Q6HR PRN 07/08/17 02/28/21 Unknown History [id number]/5Ml Susp] Bismuth Subsalicylate 262 mg PO QDAY PRN 07/08/17 02/28/21 Unknown History [Pepto-Bismol] Docusate Sodium [Colace] 100 mg PO BID PRN 07/08/17 02/28/21 Unknown History Fluticasone [Flonase] 1 spray NS QDAY 07/08/17 02/28/21 Unknown History Citalopram [Celexa] 10 mg PO QDAY 02/28/21 02/28/21 Unknown History QUEtiapine [SEROquel] 300 mg PO BID 02/28/21 02/28/21 Unknown History amLODIPine [Norvasc] 10 mg PO DAILY 03/01/21 03/01/21 Unknown History hydroCHLOROthiazide 12.5 mg PO DAILY 03/01/21 03/01/21 Unknown History [Hydrochlorothiazide] Active Meds: Active Medications Acetaminophen (Acetaminophen 325 Mg Tab) 650 mg PO Q6H PRN PRN Reason: Pain, Mild (1-3) Last Admin: 03/03/21 22:05 Dose: 650 mg Documented by: Amlodipine Besylate (Amlodipine 10 Mg Tab) 10 mg PO QDAY [facility] Last Admin: 03/03/21 11:04 Dose: 10 mg Documented by: Chlordiazepoxide HCl (Chlordiazepoxide 25 Mg Cap) 50 mg PO Q1H PRN PRN Reason: CIWA-Ar 8-15 Citalopram Hydrobromide (Citalopram 20 Mg Tab) 20 mg PO QDAY [facility] Last Admin: 03/03/21 11:03 Dose: 20 mg Documented by: Clonidine HCl (Clonidine 0.2 Mg Tab) 0.2 mg PO Q12HR [facility] Last Admin: 03/03/21 22:06 Dose: 0.2 mg Documented by: Docusate Sodium (Docusate Sodium 100 Mg Cap) 100 mg PO BID PRN PRN Reason: Constipation Last Admin: 03/03/21 22:06 Dose: 100 mg Documented by: Hydrochlorothiazide (Hydrochlorothiazide 12.5 Mg Cap) 12.5 mg PO QDAY [facility] Last Admin: 03/03/21 11:02 Dose: 12.5 mg Documented by: Levetiracetam (Levetiracetam 500 Mg Tab) 500 mg PO BID [facility] Last Admin: 03/03/21 22:05 Dose: 500 mg Documented by: Lorazepam (Lorazepam 2 Mg Tab) 2 mg PO Q1H PRN PRN Reason: CIWA-Ar 8-15 Quetiapine Fumarate (Quetiapine 200 Mg Tab) 400 mg PO QHS [facility] Last Admin: 03/03/21 22:05 Dose: 400 mg Documented by: Quetiapine Fumarate (Quetiapine 200 Mg Tab) 200 mg PO DAILY [facility] Last Admin: 03/03/21 11:03 Dose: 200 mg Documented by: Results - Results Labs/Vitals: Laboratory Last Values WBC 4.3 K/mm3 (4.5-11.0) L 03/04/21 00:06 RBC 4.64 M/mm3 (3.65-5.03) 03/04/21 00:06 Hgb 13.1 gm/dl (11.8-15.2) 03/04/21 00:06 Hct 39.3 % (35.5-45.6) 03/04/21 00:06 MCV 85 fl (84-94) 03/04/21 00:06 MCH 28 pg (28-32) 03/04/21 00:06 MCHC 33 % (32-34) 03/04/21 00:06 RDW 15.5 % (13.2-15.2) H 03/04/21 00:06 Plt Count 203 K/mm3 (140-440) 03/04/21 00:06 Lymph % (Auto) 33.0 % (13.4-35.0) 03/04/21 00:06 Clarke % (Auto) 10.1 % (0.0-7.3) H 03/04/21 00:06 Eos % (Auto) 4.9 % (0.0-4.3) H 03/04/21 00:06 Baso % (Auto) 0.3 % (0.0-1.8) 03/04/21 00:06 Lymph # (Auto) 1.4 K/mm3 (1.2-5.4) 03/04/21 00:06 Clarke # (Auto) 0.4 K/mm3 (0.0-0.8) 03/04/21 00:06 Eos # (Auto) 0.2 K/mm3 (0.0-0.4) 03/04/21 00:06 Baso # (Auto) 0.0 K/mm3 (0.0-0.1) 03/04/21 00:06 Seg Neutrophils % 51.7 % (40.0-70.0) 03/04/21 00:06 Seg Neutrophils # 2.2 K/mm3 (1.8-7.7) 03/04/21 00:06 POC Glucose 85 mg/dL (70-105) 03/01/21 06:52 TSH 1.280 mlU/mL (0.270-4.200) 03/04/21 00:06 Last Vital Signs Temp 98.8 F 03/03/21 19:35 Pulse 83 03/03/21 22:06 Resp 16 03/03/21 19:35 BP 127/82 03/03/21 22:06 Pulse Ox 96 03/03/21 19:35
[2021-03-04] MEDS: hydroCHLOROthiazide 12.5 MG CAP PO SCH (09:04)
[2021-03-04] MEDS: CITALOPRAM 20 MG TAB PO SCH (09:04)
[2021-03-04] MEDS: amLODIPine 10 MG TAB PO SCH (09:04)
[2021-03-04] MEDS: QUEtiapine 200 MG TAB PO SCH ×2 (09:04→21:10)
[2021-03-04] MEDS: levETIRAcetam 500 MG TAB PO SCH ×2 (09:04→21:10)
[2021-03-04] MEDS: cloNIDine 0.2 MG TAB PO SCH ×2 (09:05→21:09)
[2021-03-04] MEDS: ACETAMINOPHEN 325 MG TAB PO PRN (21:11)
[2021-03-04] MEDS: DOCUSATE SODIUM 100 MG CAP PO PRN (21:11)
[2021-03-04 21:51] LABS: Alanine Aminotransferase 15 units/L (7-56); Albumin 3.8 g/dL (3.9-5); BUN/Creatinine Ratio 23; Blood Urea Nitrogen 18 mg/dL (9-20); Calcium 9.7 mg/dL (8.4-10.2); Hemolysis Index 2
[2021-03-05 01:49] LABS: Chol/HDL Ratio 2.34 %; HDL Cholesterol 76 mg/dL (40-59); LDL Cholesterol,Direct 93 mg/dL (50-130)
--- NOTE | 2021-03-05 07:58 | Progress Note ---
Subjective Date of service: 03/05/21 Subjective Comment: 03/02/2021: I interviewed the patient this morning. Medical records reviewed and patient's progress was discussed with unit staff. Nursing staff reports that patient "Last evening the patient presented as angry and irritable. He complaine d about multiple issues. He was inpatient if he had to wait for anything. He still voices si but denies ah/vh/hi. His appetite is good. He is medication compliant. He became angry and "exploded" at a female peer when she crossed the line of his personal space. She was moved away and he threatened her and staff by saying "you better keep her away from me." He then removed himself from the situation and went to his room. Overnight he rested quietly. He slept around 8 hours. Will continue to monitor patient for safety." In my interview with the patient this morning, the patient reports mood as "ok". Appetite is good. Sleep last night was good. Patient continues to endorse SI with a plan to cut his throat. He denies any current withdrawal symptoms. No changes to the treatment plan today. 03/03/2021: I interviewed the patient this morning. Medical records reviewed and patient's progress was discussed with unit staff. Nursing staff reports that patient " Last evening the patient was less irritable. He has little interaction with others. Patient denies si/hi/ah/vh. His appetite is good. Overnight the patient rested quietly. He slept for 8 hours. Will continue to monitor patient for safety." In my interview with the patient this morning, he was seen in the activity room eating breakfast. The patient reports doing well. He reports mood as "good." He continues to have cravings for alcohol, no other withdrawal symptoms noted. He denies any current suicidal ideation and denies hallucinations.Start Celexa 20mg daily. 03/04/2021: The patient was seen this morning. Per nurse, the patient had a quiet night. In my interview with the patient, He reports having alcohol cravings. The patient states he plans to go to a rehab post discharge. He denies any current suicidal/homicidal ideation and denies hallucinations. No changes to the treatment plan today. 03/05/2021: The patient was seen eating breakfast in the activity room. He reports doing good. He reports that his depression is improving and the alcohol cravings are in control. He denies any current suicidal/homicidal ideation and denies hallucinations. Per nurse, the patient had a quiet night. No complain. No changes made to treatment plan today. REVIEW OF SYSTEMS Constitutional: Negative for weight loss ENT: Negative for stridor Respiratory: Negative for cough or hemoptysis All other systems reviewed and are negative MENTAL STATUS EXAMINATION General Appearance and Behavior: Age appropriate, good hygiene, wearing appropriate clothes, poor eye contact, irritable Cooperation: uncooperative, guarded Mood: "good" Affect and affective range: congruent with mood Thought Process: Goal directed Thought Content: Not suicidal Speech: normal tone and pace Suicidal Ideation:Denies Homicidal Ideation: Denies Hallucinations: Denies Delusions: Denies Impulse Control: Impaired Insight and Judgment: Limited insight and judgment, Memory: Normal Attention: Normal Orientation: Alert, oriented Assessment (1)Depression Current Visit: Yes Status: Acute Treatment Plan Patient admitted for inpatient psychiatric evaluation, medication adjustment and close monitoring The patient's behavior, mood, sleep and appetite will be closely monitored. Patient enrolled in individual and group therapeutic sessions and encouraged to attend. Patient provided with a safe and structured environment. Patient's physical health needs will be addressed by the Hospitalist. Hospitalist Consulted Labs including CBC, CMP, Lipid profile and Hemoglobin A1C levels ordered for baseline reference Social Assessment will be completed and the Hat Parts Cutter Machine will work with patient and family to ensure a suitable and safe disposition Medication adjustment will be made as clinically indicated Restarted home medications Continue Celexa 20mg daily Continue CIWA protocol Continue Seroquel 200mg po in the AM Continue Seroquel 400mg po QHS Usual Wellness Church/Preservation: - Start Trazodone 50 mg po QHS & 50 mg po QHS PRN between 10 PM & 2 AM for insomnia - Start Melatonin 5 mg po QHS to promote circadian rhythm The patient agreed on the treatment plan, understood the risk, benefit, alternative treatment, potential consequence of no treatment, and gave informed consent. Initial Certification I certify that the inpatient psychiatric services are required for treatment that could reasonably be expected to improve the patient's condition. Estimated days: 6 Post hospital care: primary care provider, psychiatric provider Case staffed with Dr. Rodriguez Legal Status: Voluntary Reaction to Hospitalization: Accepting Legal Status: Voluntary Reaction to Hospitalization: Accepting Medications and Allergies Allergies Allergy/AdvReac Type Severity Reaction Status Date / Time haloperidol [From Haldol] Allergy Intermediate Unknown Verified 02/28/21 21:07 ibuprofen [From Motrin] Allergy Intermediate Unknown Verified 02/28/21 21:07 Home Medications Medication Instructions Recorded Confirmed Last Taken Type Antacid [Alum-Mag Hydrox-Simeth 30 ml PO Q6HR PRN 07/08/17 02/28/21 Unknown History [id number]/5Ml Susp] Bismuth Subsalicylate 262 mg PO QDAY PRN 07/08/17 02/28/21 Unknown History [Pepto-Bismol] Docusate Sodium [Colace] 100 mg PO BID PRN 07/08/17 02/28/21 Unknown History Fluticasone [Flonase] 1 spray NS QDAY 07/08/17 02/28/21 Unknown History Citalopram [Celexa] 10 mg PO QDAY 02/28/21 02/28/21 Unknown History QUEtiapine [SEROquel] 300 mg PO BID 02/28/21 02/28/21 Unknown History amLODIPine [Norvasc] 10 mg PO DAILY 03/01/21 03/01/21 Unknown History hydroCHLOROthiazide 12.5 mg PO DAILY 03/01/21 03/01/21 Unknown History [Hydrochlorothiazide] Active Meds: Active Medications Acetaminophen (Acetaminophen 325 Mg Tab) 650 mg PO Q6H PRN PRN Reason: Pain, Mild (1-3) Last Admin: 03/04/21 21:11 Dose: 650 mg Documented by: Amlodipine Besylate (Amlodipine 10 Mg Tab) 10 mg PO QDAY [facility] Last Admin: 03/04/21 09:04 Dose: 10 mg Documented by: Chlordiazepoxide HCl (Chlordiazepoxide 25 Mg Cap) 50 mg PO Q1H PRN PRN Reason: CIWA-Ar 8-15 Citalopram Hydrobromide (Citalopram 20 Mg Tab) 20 mg PO QDAY [facility] Last Admin: 03/04/21 09:04 Dose: 20 mg Documented by: Clonidine HCl (Clonidine 0.2 Mg Tab) 0.2 mg PO Q12HR [facility] Last Admin: 03/04/21 21:09 Dose: 0.2 mg Documented by: Docusate Sodium (Docusate Sodium 100 Mg Cap) 100 mg PO BID PRN PRN Reason: Constipation Last Admin: 03/04/21 21:11 Dose: 100 mg Documented by: Hydrochlorothiazide (Hydrochlorothiazide 12.5 Mg Cap) 12.5 mg PO QDAY [facility] Last Admin: 03/04/21 09:04 Dose: 12.5 mg Documented by: Levetiracetam (Levetiracetam 500 Mg Tab) 500 mg PO BID [facility] Last Admin: 03/04/21 21:10 Dose: 500 mg Documented by: Lorazepam (Lorazepam 2 Mg Tab) 2 mg PO Q1H PRN PRN Reason: CIWA-Ar 8-15 Quetiapine Fumarate (Quetiapine 200 Mg Tab) 400 mg PO QHS [facility] Last Admin: 03/04/21 21:10 Dose: 400 mg Documented by: Quetiapine Fumarate (Quetiapine 200 Mg Tab) 200 mg PO DAILY [facility] Last Admin: 03/04/21 09:04 Dose: 200 mg Documented by: Results - Results Labs/Vitals: Laboratory Last Values WBC 4.3 K/mm3 (4.5-11.0) L 03/04/21 00:06 RBC 4.64 M/mm3 (3.65-5.03) 03/04/21 00:06 Hgb 13.1 gm/dl (11.8-15.2) 03/04/21 00:06 Hct 39.3 % (35.5-45.6) 03/04/21 00:06 MCV 85 fl (84-94) 03/04/21 00:06 MCH 28 pg (28-32) 03/04/21 00:06 MCHC 33 % (32-34) 03/04/21 00:06 RDW 15.5 % (13.2-15.2) H 03/04/21 00:06 Plt Count 203 K/mm3 (140-440) 03/04/21 00:06 Lymph % (Auto) 33.0 % (13.4-35.0) 03/04/21 00:06 Shannon % (Auto) 10.1 % (0.0-7.3) H 03/04/21 00:06 Eos % (Auto) 4.9 % (0.0-4.3) H 03/04/21 00:06 Baso % (Auto) 0.3 % (0.0-1.8) 03/04/21 00:06 Lymph # (Auto) 1.4 K/mm3 (1.2-5.4) 03/04/21 00:06 Shannon # (Auto) 0.4 K/mm3 (0.0-0.8) 03/04/21 00:06 Eos # (Auto) 0.2 K/mm3 (0.0-0.4) 03/04/21 00:06 Baso # (Auto) 0.0 K/mm3 (0.0-0.1) 03/04/21 00:06 Seg Neutrophils % 51.7 % (40.0-70.0) 03/04/21 00:06 Seg Neutrophils # 2.2 K/mm3 (1.8-7.7) 03/04/21 00:06 Sodium 141 mmol/L (137-145) 03/04/21 00:06 Potassium 4.7 mmol/L (3.6-5.0) D 03/04/21 00:06 Chloride 100.7 mmol/L (98-107) 03/04/21 00:06 Carbon Dioxide 23 mmol/L (22-30) 03/04/21 00:06 Anion Gap 22 mmol/L 03/04/21 00:06 BUN 18 mg/dL (9-20) 03/04/21 00:06 Creatinine 0.8 mg/dL (0.8-1.3) 03/04/21 00:06 Estimated GFR > 60 ml/min 03/04/21 00:06 BUN/Creatinine Ratio 23 % 03/04/21 00:06 Glucose 62 mg/dL (75-100) L 03/04/21 00:06 POC Glucose 85 mg/dL (70-105) 03/01/21 06:52 Hemoglobin A1c 5.2 % (4-6) 03/04/21 00:06 Calcium 9.7 mg/dL (8.4-10.2) 03/04/21 00:06 Total Bilirubin 0.20 mg/dL (0.1-1.2) 03/04/21 00:06 AST 20 units/L (5-40) 03/04/21 00:06 ALT 15 units/L (7-56) 03/04/21 00:06 Alkaline Phosphatase 78 units/L (35-129) 03/04/21 00:06 Total Protein 6.7 g/dL (6.3-8.2) 03/04/21 00:06 Albumin 3.8 g/dL (3.9-5) L 03/04/21 00:06 Albumin/Globulin Ratio 1.3 % 03/04/21 00:06 Triglycerides 64 mg/dL (2-149) 03/04/21 00:06 Cholesterol 178 mg/dL (50-199) 03/04/21 00:06 LDL Cholesterol Direct 93 mg/dL (50-130) 03/04/21 00:06 HDL Cholesterol 76 mg/dL (40-59) H 03/04/21 00:06 Cholesterol/HDL Ratio 2.34 % 03/04/21 00:06 TSH 1.280 mlU/mL (0.270-4.200) 03/04/21 00:06 Last Vital Signs Temp 98.5 F 03/04/21 19:52 Pulse 70 03/04/21 21:09 Resp 18 03/04/21 21:11 BP 129/73 03/04/21 21:09 Pulse Ox 100 03/04/21 19:52
[2021-03-05] MEDS: CITALOPRAM 20 MG TAB PO SCH (09:06)
[2021-03-05] MEDS: hydroCHLOROthiazide 12.5 MG CAP PO SCH (09:06)
[2021-03-05] MEDS: QUEtiapine 200 MG TAB PO SCH ×2 (09:06→21:02)
[2021-03-05] MEDS: cloNIDine 0.2 MG TAB PO SCH ×2 (09:06→21:03)
[2021-03-05] MEDS: amLODIPine 10 MG TAB PO SCH (09:06)
[2021-03-05] MEDS: levETIRAcetam 500 MG TAB PO SCH ×2 (09:07→21:02)
[2021-03-05] MEDS: ACETAMINOPHEN 325 MG TAB PO PRN ×2 (09:10→21:07)
[2021-03-05] MEDS: DOCUSATE SODIUM 100 MG CAP PO PRN ×2 (09:10→21:07)
--- NOTE | 2021-03-06 10:17 | Discharge Summary ---
Providers - Providers Date of Admission: 02/28/21 20:39 Date of discharge: 03/06/21 Attending physician: JEFFREY MCCLAIN MD 02/28/21 20:39 Consult to Physician [CONS] Routine Comment: Consulting Provider: TRACI FLORES Physician Instructions: Reason For Exam: manage medical conditions Primary care physician: [facility]ILIT[facility] THERAPIST Hospitalization Reason for admission: Depression Condition: Stable Hospital course: The patient was provided inpatient psychiatric treatment with safe and supportive environment, group/individual therapy, psychiatric medication, medication adjustment, adverse effect monitor, medical evaluation, medical treatment, social service assessment, social support meeting, placement ass essment and psycho-education. The patients mood, cognition, behavior, motivation, compliance to treatment and appreciation on family/social support are improved and stabilized. At the time of discharge, the patient had no suicidal ideas, no homicidal ideas, no aggressive thoughts, no endangering behavior and no debilitating adverse effects. The patient agreed on the treatment plan, understood the risk, benefit, alternative treatment, potential consequence of no treatment, and gave informed consent. Progress Notes: 03/02/2021: I interviewed the patient this morning. Medical records reviewed and patient's progress was discussed with unit staff. Nursing staff reports that patient "Last evening the patient presented as angry and irritable. He complained about multiple issues. He was inpatient if he had to wait for anything. He still voices si but denies ah/vh/hi. His appetite is good. He is medication compliant. He became angry and "exploded" at a female peer when she crossed the line of his personal space. She was moved away and he threatened her and staff by saying "you better keep her away from me." He then removed himself from the situation and went to his room. Overnight he rested quietly. He slept around 8 hours. Will continue to monitor patient for safety." In my interview with the patient this morning, the patient reports mood as "ok". Appetite is good. Sleep last night was good. Patient continues to endorse SI with a plan to cut his throat. He denies any current withdrawal symptoms. No changes to the treatment plan today. 03/03/2021: I interviewed the patient this morning. Medical records reviewed and patient's progress was discussed with unit staff. Nursing staff reports that patient " Last evening the patient was less irritable. He has little interaction with others. Patient denies si/hi/ah/vh. His appetite is good. Overnight the patient rested quietly. He slept for 8 hours. Will continue to monitor patient for safety." In my interview with the patient this morning, he was seen in the activity room eating breakfast. The patient reports doing well. He reports mood as "good." He continues to have cravings for alcohol, no other withdrawal symptoms noted. He denies any current suicidal ideation and denies hallucinations.Start Celexa 20mg daily. 03/04/2021: The patient was seen this morning. Per nurse, the patient had a quiet night. In my interview with the patient, He reports having alcohol cravings. The patient states he plans to go to a rehab post discharge. He denies any current suicidal/homicidal ideation and denies hallucinations. No changes to the treatment plan today. 03/05/2021: The patient was seen eating breakfast in the activity room. He reports doing good. He reports that his depression is improving and the alcohol cravings are in control. He denies any current suicidal/homicidal ideation and denies hallucinations. Per nurse, the patient had a quiet night. No complain. No changes made to treatment plan today. Disposition: DC-01 TO HOME OR SELFCARE Allergies/Adverse Reactions: Allergies haloperidol [From Haldol] Allergy (Intermediate, Verified 02/28/21 21:07) Unknown ibuprofen [From Motrin] Allergy (Intermediate, Verified 02/28/21 21:07) Unknown Vital Signs: Last Vital Signs Temp 98.2 F 03/06/21 10:04 Pulse 81 03/06/21 10:04 Resp 20 03/06/21 10:04 BP 138/111 03/06/21 10:04 Pulse Ox 99 03/06/21 10:04 Last Lab: Laboratory Last Values WBC 4.3 K/mm3 (4.5-11.0) L 03/04/21 00:06 RBC 4.64 M/mm3 (3.65-5.03) 03/04/21 00:06 Hgb 13.1 gm/dl (11.8-15.2) 03/04/21 00:06 Hct 39.3 % (35.5-45.6) 03/04/21 00:06 MCV 85 fl (84-94) 03/04/21 00:06 MCH 28 pg (28-32) 03/04/21 00:06 MCHC 33 % (32-34) 03/04/21 00:06 RDW 15.5 % (13.2-15.2) H 03/04/21 00:06 Plt Count 203 K/mm3 (140-440) 03/04/21 00:06 Lymph % (Auto) 33.0 % (13.4-35.0) 03/04/21 00:06 [place] % (Auto) 10.1 % (0.0-7.3) H 03/04/21 00:06 Eos % (Auto) 4.9 % (0.0-4.3) H 03/04/21 00:06 Baso % (Auto) 0.3 % (0.0-1.8) 03/04/21 00:06 Lymph # (Auto) 1.4 K/mm3 (1.2-5.4) 03/04/21 00:06 [place] # (Auto) 0.4 K/mm3 (0.0-0.8) 03/04/21 00:06 Eos # (Auto) 0.2 K/mm3 (0.0-0.4) 03/04/21 00:06 Baso # (Auto) 0.0 K/mm3 (0.0-0.1) 03/04/21 00:06 Seg Neutrophils % 51.7 % (40.0-70.0) 03/04/21 00:06 Seg Neutrophils # 2.2 K/mm3 (1.8-7.7) 03/04/21 00:06 Sodium 141 mmol/L (137-145) 03/04/21 00:06 Potassium 4.7 mmol/L (3.6-5.0) D 03/04/21 00:06 Chloride 100.7 mmol/L (98-107) 03/04/21 00:06 Carbon Dioxide 23 mmol/L (22-30) 03/04/21 00:06 Anion Gap 22 mmol/L 03/04/21 00:06 BUN 18 mg/dL (9-20) 03/04/21 00:06 Creatinine 0.8 mg/dL (0.8-1.3) 03/04/21 00:06 Estimated GFR > 60 ml/min 03/04/21 00:06 BUN/Creatinine Ratio 23 % 03/04/21 00:06 Glucose 62 mg/dL (75-100) L 03/04/21 00:06 POC Glucose 85 mg/dL (70-105) 03/01/21 06:52 Hemoglobin A1c 5.2 % (4-6) 03/04/21 00:06 Calcium 9.7 mg/dL (8.4-10.2) 03/04/21 00:06 Total Bilirubin 0.20 mg/dL (0.1-1.2) 03/04/21 00:06 AST 20 units/L (5-40) 03/04/21 00:06 ALT 15 units/L (7-56) 03/04/21 00:06 Alkaline Phosphatase 78 units/L (35-129) 03/04/21 00:06 Total Protein 6.7 g/dL (6.3-8.2) 03/04/21 00:06 Albumin 3.8 g/dL (3.9-5) L 03/04/21 00:06 Albumin/Globulin Ratio 1.3 % 03/04/21 00:06 Triglycerides 64 mg/dL (2-149) 03/04/21 00:06 Cholesterol 178 mg/dL (50-199) 03/04/21 00:06 LDL Cholesterol Direct 93 mg/dL (50-130) 03/04/21 00:06 HDL Cholesterol 76 mg/dL (40-59) H 03/04/21 00:06 Cholesterol/HDL Ratio 2.34 % 03/04/21 00:06 TSH 1.280 mlU/mL (0.270-4.200) 03/04/21 00:06 Core Measure Documentation - Palliative Care Palliative Care/ Comfort Measures: Not Applicable - Core Measures Any of the following diagnoses?: none (.) Exam - Constitutional Vitals: Temp Pulse Resp BP Pulse Ox 98.2 F 81 20 138/111 99 03/06/21 10:04 03/06/21 10:04 03/06/21 10:04 03/06/21 10:04 03/06/21 10:04 General appearance: Present: no acute distress Plan Activity: advance as tolerated Weight Bearing Status: Weight Bear as Tolerated Diet: diabetic Care Plan Goals: Maintain good and stable mental health. Plan of Treatment: The patient should be compliant with medications, not to use drugs and not to drink alcohol. The patient understands that if suicidal ideas, homicidal ideas, or any endangering thoughts arise, the patient should immediately seek for emergent assistance including but not limited to crisis hot line and emergency room. Follow up with outpatient Psychiatrist and PCP within 7 - 14 days of discharge. Follow up with: PRIMARY CARE,MD [Primary Care Provider] - 7 Days Prescriptions: QUEtiapine [SEROquel] 400 mg PO QHS 30 Days #30 tablet amLODIPine 10 mg PO DAILY 30 Days #30 Citalopram [Celexa] 20 mg PO QDAY 30 Days #30 tablet Citalopram [Celexa] 20 mg PO QDAY 30 Days #30 levETIRAcetam [Keppra TAB] 500 mg PO BID 30 Days #60 tablet QUEtiapine [SEROquel] 200 mg PO DAILY 30 Days #30 tablet
[2021-03-06] MEDS: CITALOPRAM 20 MG TAB PO SCH (10:36)
[2021-03-06] MEDS: hydroCHLOROthiazide 12.5 MG CAP PO SCH (10:36)
[2021-03-06] MEDS: DOCUSATE SODIUM 100 MG CAP PO PRN ×2 (10:37→20:43)
[2021-03-06] MEDS: levETIRAcetam 500 MG TAB PO SCH ×2 (10:37→21:17)
[2021-03-06] MEDS: cloNIDine 0.2 MG TAB PO SCH ×2 (10:37→21:17)
[2021-03-06] MEDS: amLODIPine 10 MG TAB PO SCH (10:38)
[2021-03-06] MEDS: QUEtiapine 200 MG TAB PO SCH ×2 (10:38→21:17)
[2021-03-06] MEDS: ACETAMINOPHEN 325 MG TAB PO PRN ×2 (11:08→20:43)
--- NOTE | 2021-03-06 12:27 | Progress Note ---
Assessment and Plan Right hand cellulites versus acute gout -We will check uric acid level to rule out acute gout : if elevated uric acid will treat as acute gout flare -ordered xry, if no fracture or bony abnormalities in xry and uric acid level is normal, can go home with po keflex 500mg q6h for one week to treat cellulites with outpt f/u Depression -- Patient admitted for inpatient psychiatric evaluation, medication adjustment and close monitoring --Management per primary Hypertension Peptic ulcer disease Seizure disorder Morbid obesity --Restarted home medications, continue to follow BP -- BP appears to be stable --Outpt diet and exercise recommended Subjective Date of service: 03/06/21 Interval history: Patient seen and examined. Medical records and medication list reviewed. No acute event overnight noted by the RN. Patient denies any chest pain or difficulty breathing. Patient is tolerating diet. Complains of right hand swelling which developed from last night Discussed plan of care at bedside with patient. Objective - Exam Narrative Exam: GENERAL: well-developed morbidly obese -[place] male sitting in a chair without any acute distress HEENT: Normocephalic. Atraumatic. No conjunctival congestion or icterus. Patient has moist mucous membranes. NECK: Supple. Trachea midline. CHEST/LUNGS: Clear to auscultated bilaterally, breathing nonlabored. No wheezes crackles or rhonchi. HEART/CARDIOVASCULAR: Regular in rate and rhythm. S1 and S2 positive. ABDOMEN: Abdomen is soft, nontender. Patient has normal bowel sounds. SKIN: There is no rash. Warm and dry. NEURO: No focal motor deficit. Follows command. MUSCULOSKELETAL: Right hand with significant swelling tenderness and erythema EXTRIMITY: No pedal edema, no cyanosis or clubbing. PSYCH: Cooperative. - Constitutional Vitals: Vital Signs - 12hr 03/06/21 03/06/21 03/06/21 10:04 10:37 10:38 Temperature 98.2 F Pulse Rate 81 81 81 Respiratory 20 Rate Blood Pressure 138/111 138/111 Blood Pressure 138/111 [Left] Blood Pressure 138/103 [Right] O2 Sat by Pulse 99 Oximetry - Labs CBC & Chem 7: 03/04/21 00:06 03/04/21 00:06
[2021-03-06] MEDS: cephALEXin 500 MG CAP PO SCH ×2 (13:38→17:09)
[2021-03-06] MEDS: COLCHICINE 0.6 MG TAB PO SCH ×2 (13:39→21:17)
--- NOTE | 2021-03-06 13:39 | XRay Report ---
XR hand 3+V RT INDICATION / CLINICAL INFORMATION: swelling. COMPARISON: None available. FINDINGS: BONES/JOINT(S): No acute fracture or subluxation. No significant degenerative changes. SOFT TISSUES: Diffuse soft tissue swelling without radiopaque foreign body or soft tissue gas. ADDITIONAL FINDINGS: None. Signer Name: Jack Wen MD Signed: 03/06/2021 1:34 PM Workstation Name: [id number]
[2021-03-06 21:18] VITALS: BP 103/69
[2021-03-07] MEDS: cephALEXin 500 MG CAP PO SCH ×2 (00:27→06:01)
[2021-03-07] MEDS: ACETAMINOPHEN 325 MG TAB PO PRN (08:08)
[2021-03-07] MEDS: DOCUSATE SODIUM 100 MG CAP PO PRN (08:08)
[2021-03-08] MEDS ORDERED: ePHEDrine SULFATE 50 MG/1 ML INJ ONE (12:57)
== END 2021-03-07 08:48 | disposition home or self-care (01) | DRG 881 ==
LOC: UNDOADMIN 17:00 → 3A 17:00 → 5A 20:39
PROVIDERS: ADMIT Psychiatry & Neurology Psychiatry; ATTEND Psychiatry & Neurology Psychiatry
DX: F32.9 Major depressive disorder, single episode, unspecified (principal); L03.113 Cellulitis of right upper limb; Z68.41 Body mass index [BMI] 40.0-44.9, adult; I10 Essential (primary) hypertension; K27.9 Peptic ulcer, site unspecified, unspecified as acute or chronic, without hemorrhage or perforation; E66.01 Morbid (severe) obesity due to excess calories; Z71.3 Dietary counseling and surveillance; G40.909 Epilepsy, unspecified, not intractable, without status epilepticus; Z79.899 Other long term (current) drug therapy
CPT/HCPCS: 36415; 80048; 80053; 80061; 80307; 80320; 81001; 82550; 82962; 83036; 83735; 84443; 84550; 85025; 85027; G0378; G0480; U0003

== ENCOUNTER 2021-04-03 00:16 | Emergency (ER) | payer MEDICARE ==
--- NOTE | 2021-04-03 01:36 | Emergency Department Report ---
HPI - General Chief Complaint: Psych Time Seen by Provider: 04/03/21 01:25 - HPI HPI: Room 12 Patient is a 50-year-old male present with a chief complaint of suicidal ideation. The patient states he has felt depressed and suicidal for the past week. Patient denies any attempts at harming himself but states his plan was to cut his throat. Patient admits he is an alcoholic and drinks beer daily. Patient states his last consumption occurred a few hours ago. ED Past Medical Hx - Past Medical History Previous Medical History?: Yes Hx Hypertension: Yes Hx Psychiatric Treatment: Yes (Bipolar, Schizophrenia) Hx Asthma: Yes Additional medical history: gastric ulcers, ETOH - Surgical History Additional Surgical History: testicular torsion. Left lower extremity skin graft - Family History Family history: no significant - Social History Smoking Status: Never Smoker Substance Use Type: None (Denies illicit drug use), Alcohol (12 pack of beer and 2 quarts of beer daily) - Medications Home Medications: Home Medications Medication Instructions Recorded Confirmed Last Taken Type Antacid [Alum-Mag Hydrox-Simeth 30 ml PO Q6HR PRN 07/08/17 02/28/21 Unknown History [id number]] Bismuth Subsalicylate [Pepto 262 mg PO QDAY PRN 07/08/17 02/28/21 Unknown History Bismol] Docusate Sodium [Colace CAP] 100 mg PO BID PRN 07/08/17 02/28/21 Unknown History Fluticasone [Flonase] 1 spray NS QDAY 07/08/17 02/28/21 Unknown History QUEtiapine [SEROquel] 300 mg PO BID 02/28/21 02/28/21 Unknown History hydroCHLOROthiazide 12.5 mg PO DAILY 03/01/21 03/01/21 Unknown History [Hydrochlorothiazide] Acetaminophen [Acetaminophen TAB] 650 mg PO Q6H PRN tablet 03/06/21 Unknown Rx Citalopram [Celexa] 20 mg PO QDAY 30 Days #30 03/06/21 Unknown Rx Citalopram [Celexa] 20 mg PO QDAY 30 Days #30 tablet 03/06/21 Unknown Rx Docusate Sodium [Colace CAP] 100 mg PO BID PRN capsule 03/06/21 Unknown Rx QUEtiapine [SEROquel] 200 mg PO DAILY 30 Days #30 tablet 03/06/21 Unknown Rx QUEtiapine [SEROquel] 400 mg PO QHS 30 Days #30 tablet 03/06/21 Unknown Rx amLODIPine 10 mg PO DAILY 30 Days #30 03/06/21 Unknown Rx amLODIPine 10 mg PO QDAY tablet 03/06/21 Unknown Rx cephALEXin [Keflex] 500 mg PO Q6HR #28 capsule 03/06/21 Unknown Rx cloNIDine [Catapres] 0.2 mg PO Q12HR tablet 03/06/21 Unknown Rx hydroCHLOROthiazide [HCTZ] 12.5 mg PO QDAY capsule 03/06/21 Unknown Rx levETIRAcetam [Keppra TAB] 500 mg PO BID 30 Days #60 tablet 03/06/21 Unknown Rx cephALEXin [Keflex] 500 mg PO Q6HR 6 Days #24 capsule 03/07/21 Unknown Rx ED Review of Systems ROS: Stated complaint: MH/SUICIDAL IDEATIONS Other details as noted in HPI Constitutional: no symptoms reported Eyes: denies: eye pain ENT: denies: throat pain Respiratory: no symptoms reported Cardiovascular: denies: chest pain Endocrine: no symptoms reported Gastrointestinal: denies: abdominal pain Genitourinary: denies: dysuria Musculoskeletal: denies: back pain Neurological: denies: headache Psychiatric: depression, suicidal thoughts Physical Exam - Physical Exam Vital Signs: Vital Signs 04/03/21 04/03/21 01:12 01:21 Temperature 98.2 F Pulse Rate 100 H Respiratory 18 18 Rate Blood Pressure 140/88 [Right] O2 Sat by Pulse 98 98 Oximetry Physical Exam: GENERAL: The patient is well-developed well-nourished male lying on stretcher not appearing to be in acute distress. [] HEENT: Normocephalic. Atraumatic. Strabismus present. Patient has moist mucous membranes. NECK: Supple. Trachea midline CHEST/LUNGS: Clear to auscultation. There is no respiratory distress noted. HEART/CARDIOVASCULAR: Regular. There is no tachycardia. There is no gallop rub or murmur. ABDOMEN: Abdomen is soft, nontender. Patient has normal bowel sounds. There is no abdominal distention. SKIN: There is no rash. There is no edema. There is no diaphoresis. NEURO: The patient is awake, alert, and oriented. The patient is cooperative. The patient has no focal neurologic deficits. The patient has normal speech. GCS 15 MUSCULOSKELETAL: There is no evidence of acute injury. ED Course Vital Signs 04/03/21 04/03/21 01:12 01:21 Temperature 98.2 F Pulse Rate 100 H Respiratory 18 18 Rate Blood Pressure 140/88 [Right] O2 Sat by Pulse 98 98 Oximetry ED Medical Decision Making - Lab Data Result diagrams: 04/03/21 01:31 04/03/21 01:31 Laboratory Tests 04/03/21 04/03/21 04/03/21 01:31 01:31 01:31 WBC RBC Hgb Hct MCV MCH MCHC RDW Plt Count Lymph % (Auto) [place] % (Auto) Eos % (Auto) Baso % (Auto) Lymph # (Auto) [place] # (Auto) Eos # (Auto) Baso # (Auto) Seg Neutrophils % Seg Neutrophils # Sodium 134 L Potassium 3.6 Chloride 97.1 L Carbon Dioxide 22 Anion Gap 19 BUN 15 Creatinine 0.6 L Estimated GFR > 60 BUN/Creatinine Ratio 25 Glucose 93 Calcium 8.5 Urine Color Urine Turbidity Urine pH Ur Specific [place] Urine Protein Urine Glucose (UA) Urine Ketones Urine Blood Urine Nitrite Urine Bilirubin Urine Urobilinogen Ur Leukocyte Esterase Urine WBC (Auto) Urine RBC (Auto) U Epithel Cells (Auto) Salicylates < 0.3 L Urine Opiates Screen Urine Methadone Screen Acetaminophen 5.0 L Ur Barbiturates Screen Ur Phencyclidine Scrn Ur Amphetamines Screen U Benzodiazepines Scrn Urine Cocaine Screen U Marijuana (THC) Screen Drugs of Abuse Note Plasma/Serum Alcohol 04/03/21 04/03/21 04/03/21 01:31 01:31 01:32 WBC 9.1 RBC 4.57 Hgb 12.3 Hct 38.3 MCV 84 MCH 27 L MCHC 32 RDW 14.9 Plt Count 226 Lymph % (Auto) 27.3 [place] % (Auto) 5.7 Eos % (Auto) 2.9 Baso % (Auto) 0.4 Lymph # (Auto) 2.5 [place] # (Auto) 0.5 Eos # (Auto) 0.3 Baso # (Auto) 0.0 Seg Neutrophils % 63.7 Seg Neutrophils # 5.8 Sodium Potassium Chloride Carbon Dioxide Anion Gap BUN Creatinine Estimated GFR BUN/Creatinine Ratio Glucose Calcium Urine Color Straw Urine Turbidity Clear Urine pH 5.0 Ur Specific [place] 1.003 Urine Protein <15 mg/dl Urine Glucose (UA) Neg Urine Ketones Neg Urine Blood Neg Urine Nitrite Neg Urine Bilirubin Neg Urine Urobilinogen < 2.0 Ur Leukocyte Esterase Neg Urine WBC (Auto) < 1.0 Urine RBC (Auto) < 1.0 U Epithel Cells (Auto) < 1.0 Salicylates Urine Opiates Screen Urine Methadone Screen Acetaminophen Ur Barbiturates Screen Ur Phencyclidine Scrn Ur Amphetamines Screen U Benzodiazepines Scrn Urine Cocaine Screen U Marijuana (THC) Screen Drugs of Abuse Note Plasma/Serum Alcohol 0.14 H 04/03/21 01:32 WBC RBC Hgb Hct MCV MCH MCHC RDW Plt Count Lymph % (Auto) [place] % (Auto) Eos % (Auto) Baso % (Auto) Lymph # (Auto) [place] # (Auto) Eos # (Auto) Baso # (Auto) Seg Neutrophils % Seg Neutrophils # Sodium Potassium Chloride Carbon Dioxide Anion Gap BUN Creatinine Estimated GFR BUN/Creatinine Ratio Glucose Calcium Urine Color Urine Turbidity Urine pH Ur Specific [place] Urine Protein Urine Glucose (UA) Urine Ketones Urine Blood Urine Nitrite Urine Bilirubin Urine Urobilinogen Ur Leukocyte Esterase Urine WBC (Auto) Urine RBC (Auto) U Epithel Cells (Auto) Salicylates Urine Opiates Screen Negative Urine Methadone Screen Negative Acetaminophen Ur Barbiturates Screen Negative Ur Phencyclidine Scrn Negative Ur Amphetamines Screen Negative U Benzodiazepines Scrn Negative Urine Cocaine Screen Negative U Marijuana (THC) Screen Negative Drugs of Abuse Note Disclamer Plasma/Serum Alcohol - Differential Diagnosis Suicidal ideation, alcoholism Critical care attestation.: If time is entered above; I have spent that time in minutes in the direct care of this critically ill patient, excluding procedure time. ED Disposition Clinical Impression: Suicidal ideation, Alcoholism Disposition: DC/TX-65 PSY HOSP/PSY UNIT Is pt being admited?: No Does the pt Need Aspirin: No Condition: Stable Time of Disposition: 03:39 (Awaiting acceptance)
[2021-04-03] MEDS ORDERED: LORazepam 2 MG TAB PO PRN ×2 (01:40)
[2021-04-03] MEDS ORDERED: LORazepam 2 MG/ML VIAL IV PRN (01:40)
[2021-04-03 02:05] LABS: Basophils % (Auto) 0.4 % (0.0-1.8); Eosinophils # (Auto) 0.3 K/mm3 (0.0-0.4); Eosinophils % (Auto) 2.9 % (0.0-4.3); Hematocrit 38.3 % (35.5-45.6); Hemoglobin 12.3 gm/dl (11.8-15.2); Lymphocytes # (Auto) 2.5 K/mm3 (1.2-5.4); Lymphocytes % (Auto) 27.3 % (13.4-35.0); Mean Corpuscular HGB Conc 32 % (32-34); Mean Corpuscular Volume 84 fl (84-94); Monocytes # (Auto) 0.5 K/mm3 (0.0-0.8); Monocytes % (Auto) 5.7 % (0.0-7.3); Platelet Count 226 K/mm3 (140-440); Red Blood Count 4.57 M/mm3 (3.65-5.03); Red Cell Distribution Width 14.9 % (13.2-15.2)
[2021-04-03 02:08] LABS: Blood Urea Nitrogen 15 mg/dL (9-20); Calcium 8.5 mg/dL (8.4-10.2); Hemolysis Index 10
[2021-04-03 02:21] LABS: BUN/Creatinine Ratio 25
[2021-04-03 03:16] LABS: Bilirubin,Urine NEG (Negative); Blood,Urine NEG (Negative); Color,Urine Straw (Yellow); Protein,Urine <15 mg/dL mg/dL (Negative); RBC,Urine < 1.0 /HPF (0.0-6.0); Urobilinogen,Urine < 2.0 mg/dL (<2.0); WBC,Urine < 1.0 /HPF (0.0-6.0)
[2021-04-03 03:21] LABS: Amphetamine Screen,Urine Negative; Benzodiazepines Screen,Urine Negative; Cannabinoid Screen,Urine Negative; Cocaine Screen,Urine Negative; Methadone Screen,Urine Negative; Opiate Screen,Urine Negative
--- NOTE | 2021-04-03 12:01 | Event Note ---
Date: 04/03/21 S: "I wanna kill myself." O: Vital signs stable. Patient calm and cooperative. A: Major depression, alcohol abuse P: 1013; awaiting acute inpatient psychiatric placement
--- NOTE | 2021-04-03 12:26 | Consultation ---
History of Present Illness - Reason for Consult Consult date: 04/03/21 Reason for consult: mental health evaluation - History of Present Psychiatric Illness ED Note: Patient is a 50-year-old male present with a chief complaint of suicidal ideation. The patient states he has felt depressed and suicidal for the past week. Patient denies any attempts at harming himself but states his plan was to cut his throat. Patient admits he is an alcoholic and drinks beer daily. Patient states his last consumption occurred a few hours ago. Moshe Vance is a 50 year old male with a history of Depression, schizophrenia and Alcohol use disorder who presents to the ED with suicidal ideation. In my interview with the patient, he reports that he is not doing well " I just want to kill myself." The patient reports that he continues to abuse alcohol, stating that he consumes 12pack of beer and two quarts of beer per day. He reports that his recent referral to [facility] did not work for him stating " I want to go to a rehab."The patient reports being noncompliant with psychotropic medications over a week now. He endorse suicidal ideation and auditory hallucinations " voices telling me to kill myself." the patient presents with no alcohol withdrawal symptoms. PAST PSYCHIATRIC HISTORY Diagnoses: Depression, schizophrenia Suicide attempts or Self-harm behavior: None reported Prior psychiatric hospitalizations: yes Substance Abuse history: Alcohol Previous psychiatric medications tried: Seroquel, Celexa Outpatient treatment: Yes PAST MEDICAL HISTORY: Seizures, "Gastric Ulcers", and Hypertension Family Psychiatric History: Mother " unknown" SOCIAL HISTORY Marital Status: Single Living Arrangements: Lives with mother Employment Status: Unemployed Access to guns/weapons: None reported Education: 10th grade History of Abuse: None reported Legal History: None reported REVIEW OF SYSTEMS Constitutional: Negative for weight loss ENT: Negative for stridor Respiratory: Negative for cough or hemoptysis All other systems reviewed and are negative MENTAL STATUS EXAMINATION General Appearance and Behavior: Age appropriate, good hygiene, wearing appropriate clothes, poor eye contact, irritable Cooperation: uncooperative, guarded Mood: Depressed Affect and affective range: congruent with mood Thought Process: Goal directed Thought Content: Suicidal Speech: normal tone and pace Suicidal Ideation: Yes Homicidal Ideation: Denies Hallucinations: Auditory Delusions: Denies Impulse Control: Impaired Insight and Judgment: Limited insight and poor judgment, Memory: Normal Attention: Normal Orientation: Alert, oriented Assessment and Plan (1) Major depressive disorder, recurrent,severe-F33.2 (2) Alcohol use Disorder Current Visit: Yes Status: Acute Treatment Plan Continue 1013 The patient to comply with previously prescribed medications Risks, benefits and alternatives of medications discussed with the patient, questions answered and consent obtained from patient. PSYCHOTHERAPY: Supportive psychotherapy provided MEDICAL: Per primary team DELIRIUM PRECAUTIONS: Please re-orient patient frequently, keep lights on during the day, and minimize benzodiazepines and opiates as these medications could worsen patient's confusion. TOP TRIMMER: Defer to primary DISPOSITION: Recommend acute inpatient psychiatric hospitalization at this time. FOLLOW-UP: Will follow Thank you for the consult. Please contact with any questions and/or concerns. Medications and Allergies Medications and Allergies Allergies Allergy/AdvReac Type Severity Reaction Status Date / Time haloperidol [From Haldol] Allergy Intermediate Unknown Verified 02/28/21 21:07 ibuprofen [From Motrin] Allergy Intermediate Unknown Verified 02/28/21 21:07 Home Medications Medication Instructions Recorded Confirmed Last Taken Type Antacid [Alum-Mag Hydrox-Simeth 30 ml PO Q6HR PRN 07/08/17 02/28/21 Unknown History [id number]] Bismuth Subsalicylate [Pepto 262 mg PO QDAY PRN 07/08/17 02/28/21 Unknown H istory Bismol] Docusate Sodium [Colace CAP] 100 mg PO BID PRN 07/08/17 02/28/21 Unknown History Fluticasone [Flonase] 1 spray NS QDAY 07/08/17 02/28/21 Unknown History QUEtiapine [SEROquel] 300 mg PO BID 02/28/21 02/28/21 Unknown History hydroCHLOROthiazide 12.5 mg PO DAILY 03/01/21 03/01/21 Unknown History [Hydrochlorothiazide] Acetaminophen [Acetaminophen TAB] 650 mg PO Q6H PRN tablet 03/06/21 Unknown Rx Citalopram [Celexa] 20 mg PO QDAY 30 Days #30 03/06/21 Unknown Rx Citalopram [Celexa] 20 mg PO QDAY 30 Days #30 tablet 03/06/21 Unknown Rx Docusate Sodium [Colace CAP] 100 mg PO BID PRN capsule 03/06/21 Unknown Rx QUEtiapine [SEROquel] 200 mg PO DAILY 30 Days #30 tablet 03/06/21 Unknown Rx QUEtiapine [SEROquel] 400 mg PO QHS 30 Days #30 tablet 03/06/21 Unknown Rx amLODIPine 10 mg PO DAILY 30 Days #30 03/06/21 Unknown Rx amLODIPine 10 mg PO QDAY tablet 03/06/21 Unknown Rx cephALEXin [Keflex] 500 mg PO Q6HR #28 capsule 03/06/21 Unknown Rx cloNIDine [Catapres] 0.2 mg PO Q12HR tablet 03/06/21 Unknown Rx hydroCHLOROthiazide [HCTZ] 12.5 mg PO QDAY capsule 03/06/21 Unknown Rx levETIRAcetam [Keppra TAB] 500 mg PO BID 30 Days #60 tablet 03/06/21 Unknown Rx cephALEXin [Keflex] 500 mg PO Q6HR 6 Days #24 capsule 03/07/21 Unknown Rx Active Meds: Active Medications Lorazepam (Lorazepam 2 Mg Tab) 2 mg PO Q1HR PRN PRN Reason: CIWA-Ar 8-15 Lorazepam (Lorazepam 2 Mg Tab) 4 mg PO Q1HR PRN PRN Reason: CIWA-Ar 16-25 Lorazepam (Lorazepam 2 Mg/Ml Vial) 4 mg IV Q15MIN PRN PRN Reason: CIWA-Ar >25 Mental Status Exam - Vital signs Last Vital Signs Temp 97.8 F 04/03/21 09:06 Pulse 84 04/03/21 09:06 Resp 20 04/03/21 09:06 BP 166/98 04/03/21 09:06 Pulse Ox 100 04/03/21 09:06 Results Result Diagrams: 04/03/21 01:31 04/03/21 01:31 Abnormal lab results 04/03/21 04/03/21 04/03/21 Range/Units 01:31 01:31 01:31 MCH (28-32) pg Sodium 134 L (137-145) mmol/L Chloride 97.1 L (98-107) mmol/L Creatinine 0.6 L (0.8-1.3) mg/dL Salicylates < 0.3 L (2.8-20.0) mg/dL Acetaminophen 5.0 L (10.0-30.0) ug/mL Plasma/Serum Alcohol (0-0.07) % 04/03/21 04/03/21 Range/Units 01:31 01:31 MCH 27 L (28-32) pg Sodium (137-145) mmol/L Chloride (98-107) mmol/L Creatinine (0.8-1.3) mg/dL Salicylates (2.8-20.0) mg/dL Acetaminophen (10.0-30.0) ug/mL Plasma/Serum Alcohol 0.14 H (0-0.07) % All other labs normal.
[2021-04-03 21:42] VITALS: BP 150/78
== END 2021-04-03 21:43 ==
LOC: ED 00:16 → EEVIPCON 00:16 → ED 21:43
DX: F10.20 Alcohol dependence, uncomplicated (principal); R45.851 Suicidal ideations; I10 Essential (primary) hypertension; F25.0 Schizoaffective disorder, bipolar type; J45.909 Unspecified asthma, uncomplicated; Z20.822 Contact with and (suspected) exposure to COVID-19; Z88.6 Allergy status to analgesic agent; Z88.8 Allergy status to other drugs, medicaments and biological substances; Z98.890 Other specified postprocedural states
CPT/HCPCS: 36415; 80048; 80307; 81001; 85025; 99284; U0003; 80320; G0480

== ENCOUNTER 2021-04-03 13:46 | Inpatient (IN) | payer MEDICARE ==
[2021-04-03] MEDS: levETIRAcetam 500 MG TAB PO SCH (22:39)
[2021-04-03] MEDS: QUEtiapine 200 MG TAB PO SCH (22:39)
[2021-04-03] MEDS ORDERED: ALUM-MAG HYDROXIDE-SIMETHICONE 200-200-20MG/5ML ORAL LIQD 30 ML PO PRN (22:42)
[2021-04-04] MEDS ORDERED: ALUM-MAG HYDROXIDE-SIMETHICONE 200-200-20MG/5ML ORAL LIQD 30 ML PO SCH
[2021-04-04] MEDS ORDERED: chlordiazePOXIDE 25 MG CAP PO PRN ×2 (01:20)
[2021-04-04] MEDS ORDERED: LORazepam 2 MG TAB PO PRN ×2 (01:20)
--- NOTE | 2021-04-04 08:54 | History and Physical Report ---
GP History & Physical - History of Present Illness Date of admission: 04/03/21 Date of Examination: 04/04/21 Reason for Admission: Danger to self Chief Complaint: Suicidal ideation History of Present Illness: The patient was seen in the ED: Jessica Vance is a 50 year old male with a history of Depression, Schizophrenia and Alcohol use disorder who presents to the ED with suicidal ideation. In my interview with the patient, he reports that he is not doing well " I just want to kill myself." The patient reports that he continues to abuse alcohol, stating that he consumes 12pack of beer and two quarts of beer per day. He reports that his recent referral to [facility] did not work for him stating " I want to go to a rehab."The patient reports being noncompliant with psychotropic medications over a week now. He endorse suicidal ideation and auditory hallucinations " voices telling me to kill myself." the patient presents with no alcohol withdrawal symptoms. Today, the patient continues to endorse suicidal ideation with a plan to cut his throat. He endorses commanding auditory hallucinations and also admits to having visual hallucinations. The patient last used alcohol yesterday and reports having cravings for alcohol. PAST PSYCHIATRIC HISTORY Diagnoses: Depression, Schizophrenia, Alcohol use Disorder Suicide attempts or Self-harm behavior: None reported Prior psychiatric hospitalizations: yes Substance Abuse history: Alcohol Previous psychiatric medications tried: Seroquel, Celexa Outpatient treatment: Yes PAST MEDICAL HISTORY: Seizures, "Gastric Ulcers", and Hypertension Family Psychiatric History: Mother " unknown" SOCIAL HISTORY Marital Status: Single Living Arrangements: Lives with mother Employment Status: Unemployed Access to guns/weapons: None reported Education: 10th grade History of Abuse: None reported Legal History: None reported REVIEW OF SYSTEMS Constitutional: Negative for weight loss ENT: Negative for stridor Respiratory: Negative for cough or hemoptysis All other systems reviewed and are negative MENTAL STATUS EXAMINATION General Appearance and Behavior: Age appropriate, good hygiene, wearing appropriate clothes, poor eye contact, irritable Cooperation: uncooperative, guarded Mood: Depressed Affect and affective range: congruent with mood Thought Process: Goal directed Thought Content: Suicidal Speech: normal tone and pace Suicidal Ideation: Yes Homicidal Ideation: Denies Hallucinations: Auditory Delusions: Denies Impulse Control: Impaired Insight and Judgment: Limited insight and poor judgment, Memory: Normal Attention: Normal Orientation: Alert, oriented Assessment and Plan (1) Major depressive disorder, recurrent,severe-F33.2 (2) Alcohol use Disorder Current Visit: Yes Status: Acute Legal Status: Voluntary Treatment Plan Patient admitted for inpatient psychiatric evaluation, medication adjustment and close monitoring The patient's behavior, mood, sleep and appetite will be closely monitored. Patient enrolled in individual and group therapeutic sessions and encouraged to attend. Patient provided with a safe and structured environment. Patient's physical health needs will be addressed by the Hospitalist. Hospitalist Consulted Labs including CBC, CMP, Lipid profile and Hemoglobin A1C levels ordered for baseline reference Social Assessment will be completed and the Office Employee will work with patient and family to ensure a suitable and safe disposition Medication adjustment will be made as clinically indicated Restart Home meds Continue CIWA protocols Usual Wellness Yarsani/Preservation: - Start Trazodone 50 mg po QHS & 50 mg po QHS PRN between 10 PM & 2 AM for insomnia - Start Melatonin 5 mg po QHS to promote circadian rhythm The patient agreed on the treatment plan, understood the risk, benefit, alternative treatment, potential consequence of no treatment, and gave informed consent. Estimated days: 6 Post hospital care: primary care provider, psychiatric provider Case staffed with Dr. Rodriguez Medications and Allergies Allergies Allergy/AdvReac Type Severity Reaction Status Date / Time haloperidol [From Haldol] Allergy Intermediate Unknown Verified 02/28/21 21:07 ibuprofen [From Motrin] Allergy Intermediate Unknown Verified 02/28/21 21:07 Home Medications Medication Instructions Recorded Confirmed Last Taken Type hydroCHLOROthiazide 12.5 mg PO DAILY 03/01/21 04/03/21 Unknown History [Hydrochlorothiazide] Citalopram [Celexa] 20 mg PO QDAY 30 Days #30 03/06/21 04/03/21 Unknown Rx QUEtiapine [SEROquel] 200 mg PO DAILY 30 Days #30 tablet 03/06/21 04/03/21 Unknown Rx QUEtiapine [SEROquel] 400 mg PO QHS 30 Days #30 tablet 03/06/21 04/03/21 Unknown Rx cloNIDine [Catapres] 0.2 mg PO Q12HR tablet 03/06/21 04/03/21 Unknown Rx levETIRAcetam [Keppra TAB] 500 mg PO BID 30 Days #60 tablet 03/06/21 04/03/21 Unknown Rx Acetaminophen [Aphen] 650 mg PO PRN 04/03/21 04/03/21 Unknown History Antacid [Alum-Mag Hydrox-Simeth 30 ml PO Q6HR 04/03/21 04/03/21 Unknown History [id number] Susp] Bismuth Subsalicylate [Kaopectate] 262 mg PO PRN PRN 04/03/21 04/03/21 Unknown History Docusate Sodium [Colace] 100 mg PO BID PRN 04/03/21 04/03/21 Unknown History amLODIPine [Norvasc] 10 mg PO DAILY 04/03/21 04/03/21 Unknown History Active Meds: Active Medications Acetaminophen (Acetaminophen 325 Mg Tab) 650 mg PO Q6H PRN PRN Reason: Pain, Mild (1-3) Al Hydrox/Mg Hydrox/Simethicone (Alum-Mag Hydroxide-Simethicone [phone]/5ml Oral Liqd 30 Ml) 30 ml PO Q6H PRN PRN Reason: Indigestion Last Admin: 04/03/21 22:49 Dose: 30 ml Documented by: Amlodipine Besylate (Amlodipine 10 Mg Tab) 10 mg PO DAILY [facility] Chlordiazepoxide HCl (Chlordiazepoxide 25 Mg Cap) 50 mg PO Q1H PRN PRN Reason: ROMÁN-Simba 8-15 Chlordiazepoxide HCl (Chlordiazepoxide 25 Mg Cap) 100 mg PO Q1H PRN PRN Reason: CIWA-Ar 16-25 Citalopram Hydrobromide (Citalopram 20 Mg Tab) 20 mg PO QDAY [facility] Docusate Sodium (Docusate Sodium 100 Mg Cap) 100 mg PO BID PRN PRN Reason: consitpation Hydrochlorothiazide (Hydrochlorothiazide 12.5 Mg Cap) 12.5 mg PO DAILY [facility] Levetiracetam (Levetiracetam 500 Mg Tab) 500 mg PO BID [facility] Last Admin: 04/03/21 22:39 Dose: 500 mg Documented by: Lorazepam (Lorazepam 2 Mg Tab) 2 mg PO Q1H PRN PRN Reason: CIWA-Ar 8-15 Lorazepam (Lorazepam 2 Mg Tab) 4 mg PO Q1H PRN PRN Reason: CIWA-Ar 16-25 Quetiapine Fumarate (Quetiapine 200 Mg Tab) 400 mg PO QHS [facility] Last Admin: 04/03/21 22:39 Dose: 400 mg Documented by: Quetiapine Fumarate (Quetiapine 200 Mg Tab) 200 mg PO DAILY [facility] Results - Results Labs/Vitals: Laboratory Last Values POC Glucose 107 mg/dL (70-105) H 04/03/21 22:22 Last Vital Signs Temp 97.4 F L 04/04/21 08:34 Pulse 117 H 04/04/21 08:34 Resp 20 04/04/21 08:34 BP 146/95 04/04/21 08:34 Pulse Ox 95 04/04/21 08:34 Physical Examination - Constitutional Vitals: Vital Signs Temp Pulse Resp BP Pulse Ox 97.4 F L 117 H 20 146/95 95 04/04/21 08:34 04/04/21 08:34 04/04/21 08:34 04/04/21 08:34 04/04/21 08:34 Temperature -Last 24 Hours Temperature 97.4 F Temperature 98.4 F Mental Status Exam - Vital signs Last Vital Signs Temp 97.4 F L 04/04/21 08:34 Pulse 117 H 04/04/21 08:34 Resp 20 04/04/21 08:34 BP 146/95 04/04/21 08:34 Pulse Ox 95 04/04/21 08:34 Physician Certification - Certification Statement Physician Certification Statement: This is an acknowledgement statement that JESSICA VANCE is a 50 year old M who requires inpatient psychiatric admission for treatment which could reasonably be expected to improve the patient's condition for Estimated period of time patient will need to remain in the hospital: [ ] Plan for post-hospital care: [ ]
[2021-04-04] MEDS: amLODIPine 10 MG TAB PO SCH (09:52)
[2021-04-04] MEDS: QUEtiapine 200 MG TAB PO SCH ×2 (09:52→21:36)
[2021-04-04] MEDS: hydroCHLOROthiazide 12.5 MG CAP PO SCH (09:52)
[2021-04-04] MEDS: CITALOPRAM 20 MG TAB PO SCH (09:52)
[2021-04-04] MEDS: levETIRAcetam 500 MG TAB PO SCH ×2 (09:52→21:36)
[2021-04-04] MEDS: ACETAMINOPHEN 325 MG TAB PO PRN (21:38)
[2021-04-05] MEDS: hydroCHLOROthiazide 12.5 MG CAP PO SCH (09:42)
[2021-04-05] MEDS: CITALOPRAM 20 MG TAB PO SCH (09:42)
[2021-04-05] MEDS: levETIRAcetam 500 MG TAB PO SCH ×2 (09:42→21:49)
[2021-04-05] MEDS: amLODIPine 10 MG TAB PO SCH (09:42)
[2021-04-05] MEDS: QUEtiapine 200 MG TAB PO SCH ×2 (09:43→21:48)
[2021-04-05 09:51] LABS: Basophils % (Auto) 0.3 % (0.0-1.8); Eosinophils # (Auto) 0.2 K/mm3 (0.0-0.4); Eosinophils % (Auto) 3.9 % (0.0-4.3); Hematocrit 41.3 % (35.5-45.6); Hemoglobin 13.6 gm/dl (11.8-15.2); Lymphocytes # (Auto) 1.4 K/mm3 (1.2-5.4); Lymphocytes % (Auto) 24.1 % (13.4-35.0); Mean Corpuscular HGB Conc 33 % (32-34); Mean Corpuscular Volume 85 fl (84-94); Monocytes # (Auto) 0.3 K/mm3 (0.0-0.8); Monocytes % (Auto) 5.7 % (0.0-7.3); Platelet Count 194 K/mm3 (140-440); Red Blood Count 4.87 M/mm3 (3.65-5.03); Red Cell Distribution Width 15.1 % (13.2-15.2)
--- NOTE | 2021-04-05 09:58 | Progress Note ---
Subjective Date of service: 04/05/21 Principal diagnosis: MDD Subjective Comment: The patient was seen today. He endorses SI without a plan. He states he is hearing voices telling him to kill himself. The patient says he had been off his meds for a bit, but states they normally work when he takes them. REVIEW OF SYSTEMS Constitutional: Negative for weight loss ENT: Negative for stridor Respiratory: Negative for cough or hemoptysis All other systems reviewed and are negative MENTAL STATUS EXAMINATION General Appearance and Behavior: Age appropriate, good hygiene, wearing appropriate clothes, poor eye contact, irritable Cooperation: uncooperative, guarded Mood: Depressed Affect and affective range: congruent with mood Thought Process: Goal directed Thought Content: Suicidal Speech: normal tone and pace Suicidal Ideation: Yes Homicidal Ideation: Denies Hallucinations: Auditory Delusions: Denies Impulse Control: Impaired Insight and Judgment: Limited insight and poor judgment, Memory: Normal Attention: Normal Orientation: Alert, oriented Assessment and Plan (1) Major depressive disorder, recurrent,severe-F33.2 (2) Alcohol use Disorder Current Visit: Yes Status: Acute Treatment Plan Patient admitted for inpatient psychiatric evaluation, medication adjustment and close monitoring The patient's behavior, mood, sleep and appetite will be closely monitored. Patient enrolled in individual and group therapeutic sessions and encouraged to attend. Patient provided with a safe and structured environment. Patient's physical health needs will be addressed by the Hospitalist. Hospitalist Consulted Labs including CBC, CMP, Lipid profile and Hemoglobin A1C levels ordered for baseline reference Social Assessment will be completed and the Household Appliances Salesperson will work with patient and family to ensure a suitable and safe disposition Medication adjustment will be made as clinically indicated Continue prescribed meds Continue [facility] protocols Usual Wellness Cheondoism/Preservation: - Start Trazodone 50 mg po QHS & 50 mg po QHS PRN between 10 PM & 2 AM for insomnia - Start Melatonin 5 mg po QHS to promote circadian rhythm The patient agreed on the treatment plan, understood the risk, benefit, alternative treatment, potential consequence of no treatment, and gave informed consent. Estimated days: 6 Post hospital care: primary care provider, psychiatric provider Case staffed with Dr. Rodriguez Medications and Allergies Allergies Allergy/AdvReac Type Severity Reaction Status Date / Time haloperidol [From Haldol] Allergy Intermediate Unknown Verified 02/28/21 21:07 ibuprofen [From Motrin] Allergy Intermediate Unknown Verified 02/28/21 21:07 Home Medications Medication Instructions Recorded Confirmed Last Taken Type hydroCHLOROthiazide 12.5 mg PO DAILY 03/01/21 04/03/21 Unknown History [Hydrochlorothiazide] Citalopram [Celexa] 20 mg PO QDAY 30 Days #30 03/06/21 04/03/21 Unknown Rx QUEtiapine [SEROquel] 200 mg PO DAILY 30 Days #30 tablet 03/06/21 04/03/21 Unknown Rx QUEtiapine [SEROquel] 400 mg PO QHS 30 Days #30 tablet 03/06/21 04/03/21 Unknown Rx cloNIDine [Catapres] 0.2 mg PO Q12HR tablet 03/06/21 04/03/21 Unknown Rx levETIRAcetam [Keppra TAB] 500 mg PO BID 30 Days #60 tablet 03/06/21 04/03/21 Unknown Rx Acetaminophen [Aphen] 650 mg PO PRN 04/03/21 04/03/21 Unknown History Antacid [Alum-Mag Hydrox-Simeth 30 ml PO Q6HR 04/03/21 04/03/21 Unknown History [id number]/5Ml Susp] Bismuth Subsalicylate [Kaopectate] 262 mg PO PRN PRN 04/03/21 04/03/21 Unknown History Docusate Sodium [Colace] 100 mg PO BID PRN 04/03/21 04/03/21 Unknown History amLODIPine [Norvasc] 10 mg PO DAILY 04/03/21 04/03/21 Unknown History Active Meds: Active Medications Acetaminophen (Acetaminophen 325 Mg Tab) 650 mg PO Q6H PRN PRN Reason: Pain, Mild (1-3) Last Admin: 04/04/21 21:38 Dose: 650 mg Documented by: Al Hydrox/Mg Hydrox/Simethicone (Alum-Mag Hydroxide-Simethicone [phone]/5ml Oral Liqd 30 Ml) 30 ml PO Q6H PRN PRN Reason: Indigestion Last Admin: 04/03/21 22:49 Dose: 30 ml Documented by: Amlodipine Besylate (Amlodipine 10 Mg Tab) 10 mg PO DAILY [facility] Last Admin: 04/05/21 09:42 Dose: 10 mg Documented by: Chlordiazepoxide HCl (Chlordiazepoxide 25 Mg Cap) 50 mg PO Q1H PRN PRN Reason: Yanira 8-15 Chlordiazepoxide HCl (Chlordiazepoxide 25 Mg Cap) 100 mg PO Q1H PRN PRN Reason: Yanira Citalopram Hydrobromide (Citalopram 20 Mg Tab) 20 mg PO QDAY [facility] Last Admin: 04/05/21 09:42 Dose: 20 mg Documented by: Docusate Sodium (Docusate Sodium 100 Mg Cap) 100 mg PO BID PRN PRN Reason: consitpation Hydrochlorothiazide (Hydrochlorothiazide 12.5 Mg Cap) 12.5 mg PO DAILY [facility] Last Admin: 04/05/21 09:42 Dose: 12.5 mg Documented by: Levetiracetam (Levetiracetam 500 Mg Tab) 500 mg PO BID [facility] Last Admin: 04/05/21 09:42 Dose: 500 mg Documented by: Lorazepam (Lorazepam 2 Mg Tab) 2 mg PO Q1H PRN PRN Reason: Yanira 04-07 Lorazepam (Lorazepam 2 Mg Tab) 4 mg PO Q1H PRN PRN Reason: Yanira Quetiapine Fumarate (Quetiapine 200 Mg Tab) 400 mg PO QHS [facility] Last Admin: 04/04/21 21:36 Dose: 400 mg Documented by: Quetiapine Fumarate (Quetiapine 200 Mg Tab) 200 mg PO DAILY [facility] Last Admin: 04/05/21 09:43 Dose: 200 mg Documented by: Results - Results Labs/Vitals: Laboratory Last Values WBC 5.8 K/mm3 (4.5-11.0) 04/05/21 09:15 RBC 4.87 M/mm3 (3.65-5.03) 04/05/21 09:15 Hgb 13.6 gm/dl (11.8-15.2) 04/05/21 09:15 Hct 41.3 % (35.5-45.6) 04/05/21 09:15 MCV 85 fl (84-94) 04/05/21 09:15 MCH 28 pg (28-32) 04/05/21 09:15 MCHC 33 % (32-34) 04/05/21 09:15 RDW 15.1 % (13.2-15.2) 04/05/21 09:15 Plt Count 194 K/mm3 (140-440) 04/05/21 09:15 Lymph % (Auto) 24.1 % (13.4-35.0) 04/05/21 09:15 [place] % (Auto) 5.7 % (0.0-7.3) 04/05/21 09:15 Eos % (Auto) 3.9 % (0.0-4.3) 04/05/21 09:15 Baso % (Auto) 0.3 % (0.0-1.8) 04/05/21 09:15 Lymph # (Auto) 1.4 K/mm3 (1.2-5.4) 04/05/21 09:15 [place] # (Auto) 0.3 K/mm3 (0.0-0.8) 04/05/21 09:15 Eos # (Auto) 0.2 K/mm3 (0.0-0.4) 04/05/21 09:15 Baso # (Auto) 0.0 K/mm3 (0.0-0.1) 04/05/21 09:15 Seg Neutrophils % 66.0 % (40.0-70.0) 04/05/21 09:15 Seg Neutrophils # 3.8 K/mm3 (1.8-7.7) 04/05/21 09:15 POC Glucose 107 mg/dL (70-105) H 04/03/21 22:22 Last Vital Signs Temp 98.7 F 04/04/21 19:54 Pulse 81 04/04/21 19:54 Resp 18 04/04/21 19:54 BP 137/93 04/04/21 19:54 Pulse Ox 98 04/04/21 19:54
[2021-04-05 10:28] LABS: Alanine Aminotransferase 18 units/L (7-56); Blood Urea Nitrogen 15 mg/dL (9-20); Calcium 9.8 mg/dL (8.4-10.2); Hemolysis Index 8
[2021-04-05 10:29] LABS: BUN/Creatinine Ratio 25
--- NOTE | 2021-04-05 11:12 | Consultation ---
History of Present Illness - Reason for Consult Consult date: 04/05/21 Medical management Requesting physician: LIU VERA - History of Present Illness 50-year-old male with past medical history of schizophrenia, hypertension, seizures, gastric ulcers, alcohol abuse was admitted for suicidal ideation with a plan to "slit his throat". States he was hearing voices that were compelling him to commit suicide. Patient had been off of antipsychotic medication leading up to admission. On my encounter patient stated he had no acute issues. He denied any active headache, nausea, vomiting, diarrhea, constipation, chest pain, shortness of breath, abdominal pain, peripheral nerve pain. He noted that he does have a history of hypertension, seizures and takes medication for both. He denied any prior history of diabetes. Remainder of ROS negative except for stated above PMHx: schizophrenia, hypertension, seizures, gastric ulcers, alcohol abuse PSHx: Reviewed and denies FHx: Reviewed and noncontributory SHx: Tobacco use-denies ETOH Use-admits Recreational Drug Use-denies Occupation-unemployed Living situationlives with mother Medications and Allergies Allergies Allergy/AdvReac Type Severity Reaction Status Date / Time haloperidol [From Haldol] Allergy Intermediate Unknown Verified 02/28/21 21:07 ibuprofen [From Motrin] Allergy Intermediate Unknown Verified 02/28/21 21:07 Home Medications Medication Instructions Recorded Confirmed Last Taken Type hydroCHLOROthiazide 12.5 mg PO DAILY 03/01/21 04/03/21 Unknown History [Hydrochlorothiazide] Citalopram [Celexa] 20 mg PO QDAY 30 Days #30 03/06/21 04/03/21 Unknown Rx QUEtiapine [SEROquel] 200 mg PO DAILY 30 Days #30 tablet 03/06/21 04/03/21 Unknown Rx QUEtiapine [SEROquel] 400 mg PO QHS 30 Days #30 tablet 03/06/21 04/03/21 Unknown Rx cloNIDine [Catapres] 0.2 mg PO Q12HR tablet 03/06/21 04/03/21 Unknown Rx levETIRAcetam [Keppra TAB] 500 mg PO BID 30 Days #60 tablet 03/06/21 04/03/21 Unknown Rx Acetaminophen [Aphen] 650 mg PO PRN 04/03/21 04/03/21 Unknown History Antacid [Alum-Mag Hydrox-Simeth 30 ml PO Q6HR 04/03/21 04/03/21 Unknown History [id number]/5Ml Susp] Bismuth Subsalicylate [Kaopectate] 262 mg PO PRN PRN 04/03/21 04/03/21 Unknown History Docusate Sodium [Colace] 100 mg PO BID PRN 04/03/21 04/03/21 Unknown History amLODIPine [Norvasc] 10 mg PO DAILY 04/03/21 04/03/21 Unknown History Active Meds: Active Medications Acetaminophen (Acetaminophen 325 Mg Tab) 650 mg PO Q6H PRN PRN Reason: Pain, Mild (1-3) Last Admin: 04/04/21 21:38 Dose: 650 mg Documented by: Al Hydrox/Mg Hydrox/Simethicone (Alum-Mag Hydroxide-Simethicone [id number]/5ml Oral Liqd 30 Ml) 30 ml PO Q6H PRN PRN Reason: Indigestion Last Admin: 04/03/21 22:49 Dose: 30 ml Documented by: Amlodipine Besylate (Amlodipine 10 Mg Tab) 10 mg PO DAILY [facility] Last Admin: 04/05/21 09:42 Dose: 10 mg Documented by: Chlordiazepoxide HCl (Chlordiazepoxide 25 Mg Cap) 50 mg PO Q1H PRN PRN Reason: Yanira 8-15 Chlordiazepoxide HCl (Chlordiazepoxide 25 Mg Cap) 100 mg PO Q1H PRN PRN Reason: ROMÁN-Simba 16-25 Citalopram Hydrobromide (Citalopram 20 Mg Tab) 20 mg PO QDAY [facility] Last Admin: 04/05/21 09:42 Dose: 20 mg Documented by: Docusate Sodium (Docusate Sodium 100 Mg Cap) 100 mg PO BID PRN PRN Reason: consitpation Hydrochlorothiazide (Hydrochlorothiazide 12.5 Mg Cap) 12.5 mg PO DAILY [facility] Last Admin: 04/05/21 09:42 Dose: 12.5 mg Documented by: Levetiracetam (Levetiracetam 500 Mg Tab) 500 mg PO BID [facility] Last Admin: 04/05/21 09:42 Dose: 500 mg Documented by: Lorazepam (Lorazepam 2 Mg Tab) 2 mg PO Q1H PRN PRN Reason: CIWA-Ar 8-15 Lorazepam (Lorazepam 2 Mg Tab) 4 mg PO Q1H PRN PRN Reason: CIWA-Ar 16-25 Quetiapine Fumarate (Quetiapine 200 Mg Tab) 400 mg PO QHS [facility] Last Admin: 04/04/21 21:36 Dose: 400 mg Documented by: Quetiapine Fumarate (Quetiapine 200 Mg Tab) 200 mg PO DAILY [facility] Last Admin: 04/05/21 09:43 Dose: 200 mg Documented by: Review of Systems All systems: negative Exam - Physical Exam Narrative exam: Physical Exam: Constitutional: Alert, cooperative. No acute distress Head, Ears, Nose: Normocephalic, atraumatic. External ears, nose normal Eyes: Conjunctivae/corneas clear. No icterus. No ptosis. Cross eyed Neck: Supple, no meningeal signs Oral: dentition poor, no thrush Cardiovascular: S1, S2 normal. Respiratory: Good air entry, clear to auscultation bilaterally GI: Soft, non-tender; bowel sounds normal. No peritoneal signs. Musculoskeletal: No pedal edema, no cyanosis. Skin: No rash or abscess Hem/Lymphatic: No palpable cervical or supraclavicular nodes. No lymphangitis Psych: Mood ok on my encounter. Neurological: Awake, alert, oriented. No gross abnormality - Constitutional Vitals: Temp Pulse Resp BP Pulse Ox 98.1 F 100 H 18 125/92 95 04/05/21 09:42 04/05/21 09:42 04/05/21 09:42 04/05/21 09:42 04/05/21 09:42 Results - Labs CBC & Chem 7: 04/05/21 09:15 04/05/21 09:15 Labs: Abnormal lab results 04/05/21 Range/Units 09:15 Creatinine 0.6 L (0.8-1.3) mg/dL Glucose 103 H (75-100) mg/dL Assessment and Plan Plan - Patient Problems (1) Suicidal ideation Current Visit: No Status: Acute Plan to address problem: Management as per psychiatry team (2) Schizoaffective disorder Current Visit: No Status: Acute Qualifiers: Schizoaffective disorder type: bipolar Qualified Code(s): F25.0 - Schizoaffective disorder, bipolar type Plan to address problem: Continue quetiapine Management as per psychiatry team Recommend obtaining EKG for QTC assessment (3) Seizure disorder Current Visit: Yes Status: Acute Plan to address problem: Continue home Keppra 500 twice daily (4) Hypertension Current Visit: No Status: Acute Qualifiers: Hypertension type: essential hypertension Qualified Code(s): I10 - Essential (primary) hypertension Plan to address problem: -Normotensive this a.m. Continue home amlodipine, HCTZ (5) Alcoholism Current Visit: No Status: Acute Plan to address problem: CITX protocol -Ativan as needed (6) Peptic ulcer disease Current Visit: No Status: Acute Plan to address problem: Prior history of peptic ulcer disease Recommending outpatient follow-up with a GI specialist (7) Hyperglycemia Current Visit: Yes Status: Acute Plan to address problem: BG mildly elevated 103 Follow-up A1c
[2021-04-05 12:28] LABS: Hepatitis C Virus Antibody Non-Reactive (NonReactive)
[2021-04-05 14:27] LABS: Hepatitis B Surface Antigen Nonreactive (Negative)
[2021-04-05] MEDS: ACETAMINOPHEN 325 MG TAB PO PRN (21:53)
--- NOTE | 2021-04-06 09:07 | Progress Note ---
Assessment and Plan Assessment and plan: Plan - Patient Problems (1) Suicidal ideation Current Visit: No Status: Acute Plan to address problem: Management as per psychiatry team (2) Schizoaffective disorder Current Visit: No Status: Acute Qualifiers: Schizoaffective disorder type: bipolar Qualified Code(s): F25.0 - Schizoaffective disorder, bipolar type Plan to address problem: Continue quetiapine Management as per psychiatry team Recommend obtaining EKG for QTC assessment (3) Seizure disorder Current Visit: Yes Status: Acute Plan to address problem: Continue home Keppra 500 twice daily (4) Hypertension Current Visit: No Status: Acute Qualifiers: Hypertension type: essential hypertension Qualified Code(s): I10 - Essential (primary) hypertension Plan to address problem: -Normotensive most of yesterday Continue home amlodipine, HCTZ (5) Alcoholism Current Visit: No Status: Acute Plan to address problem: -Currently no signs and symptoms of withdrawal CIWA protocol -Ativan as needed (6) Peptic ulcer disease Current Visit: No Status: Acute Plan to address problem: Prior history of peptic ulcer disease Recommending outpatient follow-up with a GI specialist (7) Hyperglycemia Current Visit: Yes Status: Acute Plan to address problem: BG mildly elevated 103 A1c is 5.5 -Recommend ADA/AHA recommended diet No indication for treatment at this time History Interval history: Reported headache yesterday but no complaints otherwise. No overnight events from a medical standpoint Hospitalist Physical - Physical exam Narrative exam: Physical Exam: Constitutional: Alert, cooperative. No acute distress Head, Ears, Nose: Normocephalic, atraumatic. External ears, nose normal Eyes: Conjunctivae/corneas clear. No icterus. No ptosis. Cross eyed Neck: Supple, no meningeal signs Oral: dentition poor, no thrush Cardiovascular: S1, S2 normal. Respiratory: Good air entry, clear to auscultation bilaterally GI: Soft, non-tender; bowel sounds normal. No peritoneal signs. Musculoskeletal: No pedal edema, no cyanosis. Skin: No rash or abscess Hem/Lymphatic: No palpable cervical or supraclavicular nodes. No lymphangitis Psych: Mood ok on my encounter. Neurological: Awake, alert, oriented. No gross abnormality - Constitutional Vitals: Temp Pulse Resp BP Pulse Ox 98.4 F 96 H 16 118/70 96 04/05/21 20:24 04/05/21 20:24 04/05/21 20:24 04/05/21 20:24 04/05/21 20:24 Results - Labs CBC & Chem 7: 04/05/21 09:15 04/05/21 09:15 Labs: Laboratory Last Values WBC 5.8 K/mm3 (4.5-11.0) 04/05/21 09:15 RBC 4.87 M/mm3 (3.65-5.03) 04/05/21 09:15 Hgb 13.6 gm/dl (11.8-15.2) 04/05/21 09:15 Hct 41.3 % (35.5-45.6) 04/05/21 09:15 MCV 85 fl (84-94) 04/05/21 09:15 MCH 28 pg (28-32) 04/05/21 09:15 MCHC 33 % (32-34) 04/05/21 09:15 RDW 15.1 % (13.2-15.2) 04/05/21 09:15 Plt Count 194 K/mm3 (140-440) 04/05/21 09:15 Lymph % (Auto) 24.1 % (13.4-35.0) 04/05/21 09:15 [place] % (Auto) 5.7 % (0.0-7.3) 04/05/21 09:15 Eos % (Auto) 3.9 % (0.0-4.3) 04/05/21 09:15 Baso % (Auto) 0.3 % (0.0-1.8) 04/05/21 09:15 Lymph # (Auto) 1.4 K/mm3 (1.2-5.4) 04/05/21 09:15 [place] # (Auto) 0.3 K/mm3 (0.0-0.8) 04/05/21 09:15 Eos # (Auto) 0.2 K/mm3 (0.0-0.4) 04/05/21 09:15 Baso # (Auto) 0.0 K/mm3 (0.0-0.1) 04/05/21 09:15 Seg Neutrophils % 66.0 % (40.0-70.0) 04/05/21 09:15 Seg Neutrophils # 3.8 K/mm3 (1.8-7.7) 04/05/21 09:15 Sodium 139 mmol/L (137-145) 04/05/21 09:15 Potassium 4.1 mmol/L (3.6-5.0) 04/05/21 09:15 Chloride 101.7 mmol/L (98-107) 04/05/21 09:15 Carbon Dioxide 26 mmol/L (22-30) 04/05/21 09:15 Anion Gap 15 mmol/L 04/05/21 09:15 BUN 15 mg/dL (9-20) 04/05/21 09:15 Creatinine 0.6 mg/dL (0.8-1.3) L 04/05/21 09:15 Estimated GFR > 60 ml/min 04/05/21 09:15 BUN/Creatinine Ratio 25 % 04/05/21 09:15 Glucose 103 mg/dL (75-100) H 04/05/21 09:15 POC Glucose 107 mg/dL (70-105) H 04/03/21 22:22 Hemoglobin A1c 5.5 % (4-6) 04/05/21 09:15 Calcium 9.8 mg/dL (8.4-10.2) D 04/05/21 09:15 Total Bilirubin 0.50 mg/dL (0.1-1.2) 04/05/21 09:15 AST 21 units/L (5-40) 04/05/21 09:15 ALT 18 units/L (7-56) 04/05/21 09:15 Alkaline Phosphatase 67 units/L (35-129) 04/05/21 09:15 Total Protein 6.9 g/dL (6.3-8.2) 04/05/21 09:15 Albumin 4.0 g/dL (3.9-5) 04/05/21 09:15 Albumin/Globulin Ratio 1.4 % 04/05/21 09:15 TSH 1.130 mlU/mL (0.270-4.200) 04/05/21 09:15 Hepatitis A IgM Ab Non-reactive (NonReactive) 04/05/21 09:15 Hep Bs Antigen Nonreactive (Negative) 04/05/21 09:15 Hep B Core IgM Ab Non-reactive (NonReactive) 04/05/21 09:15 Hepatitis C Antibody Non-reactive (NonReactive) 04/05/21 09:15 Feliz/IV: Voiding Method Toilet Active Medications - Current Medications Current Medications: Generic Name Dose Route Start Last Admin Trade Name Freq PRN Reason Stop Dose Admin Acetaminophen 650 mg 04/03/21 22:40 04/05/21 21:53 Acetaminophen 325 Mg Tab PO 650 mg Q6H PRN Administration Pain, Mild (1-3) Al Hydrox/Mg Hydrox/Simethicone 30 ml 04/03/21 22:42 04/03/21 22:49 Alum-Mag Hydroxide-Simethicone [id number]/5ml Oral Liqd 30 Ml PO 30 ml Q6H PRN Administration Indigestion Amlodipine Besylate 10 mg 04/04/21 10:00 04/05/21 09:42 Amlodipine 10 Mg Tab PO 10 mg DAILY LORAINE Administration Chlordiazepoxide HCl 50 mg 04/04/21 01:20 Chlordiazepoxide 25 Mg Cap PO Q1H PRN CIWA-Ar 8-15 Chlordiazepoxide HCl 100 mg 04/04/21 01:20 Chlordiazepoxide 25 Mg Cap PO Q1H PRN CIWA-Ar 16-25 Citalopram Hydrobromide 20 mg 04/04/21 10:00 04/05/21 09:42 Citalopram 20 Mg Tab PO 20 mg QDAY LORAINE Administration Docusate Sodium 100 mg 04/03/21 18:25 Docusate Sodium 100 Mg Cap PO BID PRN consitpation Hydrochlorothiazide 12.5 mg 04/04/21 10:00 04/05/21 09:42 Hydrochlorothiazide 12.5 Mg Cap PO 12.5 mg DAILY LORAINE Administration Levetiracetam 500 mg 04/03/21 22:00 04/05/21 21:49 Levetiracetam 500 Mg Tab PO 500 mg BID LORAINE Administration Lorazepam 2 mg 04/04/21 01:20 Lorazepam 2 Mg Tab PO Q1H PRN CIWA-Ar 8-15 Lorazepam 4 mg 04/04/21 01:20 Lorazepam 2 Mg Tab PO Q1H PRN CIWA-Ar 16-25 Quetiapine Fumarate 400 mg 04/03/21 22:00 04/05/21 21:48 Quetiapine 200 Mg Tab PO 400 mg QHS LORAINE Administration Quetiapine Fumarate 200 mg 04/04/21 10:00 04/05/21 09:43 Quetiapine 200 Mg Tab PO 200 mg DAILY LORAINE Administration
--- NOTE | 2021-04-06 09:20 | Progress Note ---
Subjective Date of service: 04/06/21 Principal diagnosis: MDD Subjective Comment: The patient was seen today. He says he feels better. He endorses SI with no plan, but states he's feeling a lot better and it's not as severe. He denies hallucinations of any kind. REVIEW OF SYSTEMS Constitutional: Negative for weight loss ENT: Negative for stridor Respiratory: Negative for cough or hemoptysis All other systems reviewed and are negative MENTAL STATUS EXAMINATION General Appearance and Behavior: Age appropriate, good hygiene, wearing appropriate clothes, poor eye contact, irritable Cooperation: uncooperative, guarded Mood: Depressed Affect and affective range: congruent with mood Thought Process: Goal directed Thought Content: Suicidal Speech: normal tone and pace Suicidal Ideation: Yes Homicidal Ideation: Denies Hallucinations: Denies Delusions: Denies Impulse Control: Impaired Insight and Judgment: Limited insight and poor judgment, Memory: Normal Attention: Normal Orientation: Alert, oriented Assessment and Plan (1) Major depressive disorder, recurrent,severe-F33.2 (2) Alcohol use Disorder Current Visit: Yes Status: Acute Treatment Plan Patient admitted for inpatient psychiatric evaluation, medication adjustment and close monitoring The patient's behavior, mood, sleep and appetite will be closely monitored. Patient enrolled in individual and group therapeutic sessions and encouraged to attend. Patient provided with a safe and structured environment. Patient's physical health needs will be addressed by the Hospitalist. Hospitalist Consulted Labs including CBC, CMP, Lipid profile and Hemoglobin A1C levels ordered for baseline reference Social Assessment will be completed and the Forklift Picker will work with patient and family to ensure a suitable and safe disposition Medication adjustment will be made as clinically indicated Continue prescribed meds Continue CIWA protocols Usual [facility]: - Start Trazodone 50 mg po QHS & 50 mg po QHS PRN between 10 PM & 2 AM for insomnia - Start Melatonin 5 mg po QHS to promote circadian rhythm The patient agreed on the treatment plan, understood the risk, benefit, alternative treatment, potential consequence of no treatment, and gave informed consent. Estimated days: 6 Post hospital care: primary care provider, psychiatric provider Case staffed with Dr. Rodriguez Medications and Allergies Allergies Allergy/AdvReac Type Severity Reaction Status Date / Time haloperidol [From Haldol] Allergy Intermediate Unknown Verified 02/28/21 21:07 ibuprofen [From Motrin] Allergy Intermediate Unknown Verified 02/28/21 21:07 Home Medications Medication Instructions Recorded Confirmed Last Taken Type hydroCHLOROthiazide 12.5 mg PO DAILY 03/01/21 04/03/21 Unknown History [Hydrochlorothiazide] Citalopram [Celexa] 20 mg PO QDAY 30 Days #30 03/06/21 04/03/21 Unknown Rx QUEtiapine [SEROquel] 200 mg PO DAILY 30 Days #30 tablet 03/06/21 04/03/21 Unknown Rx QUEtiapine [SEROquel] 400 mg PO QHS 30 Days #30 tablet 03/06/21 04/03/21 Unknown Rx cloNIDine [Catapres] 0.2 mg PO Q12HR tablet 03/06/21 04/03/21 Unknown Rx levETIRAcetam [Keppra TAB] 500 mg PO BID 30 Days #60 tablet 03/06/21 04/03/21 Unknown Rx Acetaminophen [Aphen] 650 mg PO PRN 04/03/21 04/03/21 Unknown History Antacid [Alum-Mag Hydrox-Simeth 30 ml PO Q6HR 04/03/21 04/03/21 Unknown History [id number]/5Ml Susp] Bismuth Subsalicylate [Kaopectate] 262 mg PO PRN PRN 04/03/21 04/03/21 Unknown History Docusate Sodium [Colace] 100 mg PO BID PRN 04/03/21 04/03/21 Unknown History amLODIPine [Norvasc] 10 mg PO DAILY 04/03/21 04/03/21 Unknown History Active Meds: Active Medications Acetaminophen (Acetaminophen 325 Mg Tab) 650 mg PO Q6H PRN PRN Reason: Pain, Mild (1-3) Last Admin: 04/05/21 21:53 Dose: 650 mg Documented by: Al Hydrox/Mg Hydrox/Simethicone (Alum-Mag Hydroxide-Simethicone [phone]/5ml Oral Liqd 30 Ml) 30 ml PO Q6H PRN PRN Reason: Indigestion Last Admin: 04/03/21 22:49 Dose: 30 ml Documented by: Amlodipine Besylate (Amlodipine 10 Mg Tab) 10 mg PO DAILY [facility] Last Admin: 04/05/21 09:42 Dose: 10 mg Documented by: Chlordiazepoxide HCl (Chlordiazepoxide 25 Mg Cap) 50 mg PO Q1H PRN PRN Reason: CIWA-Ar 8- Chlordiazepoxide HCl (Chlordiazepoxide 25 Mg Cap) 100 mg PO Q1H PRN PRN Reason: Yanira Citalopram Hydrobromide (Citalopram 20 Mg Tab) 20 mg PO QDAY [facility] Last Admin: 04/05/21 09:42 Dose: 20 mg Documented by: Docusate Sodium (Docusate Sodium 100 Mg Cap) 100 mg PO BID PRN PRN Reason: consitpation Hydrochlorothiazide (Hydrochlorothiazide 12.5 Mg Cap) 12.5 mg PO DAILY [facility] Last Admin: 04/05/21 09:42 Dose: 12.5 mg Documented by: Levetiracetam (Levetiracetam 500 Mg Tab) 500 mg PO BID [facility] Last Admin: 04/05/21 21:49 Dose: 500 mg Documented by: Lorazepam (Lorazepam 2 Mg Tab) 2 mg PO Q1H PRN PRN Reason: Yanira 04-07 Lorazepam (Lorazepam 2 Mg Tab) 4 mg PO Q1H PRN PRN Reason: Yanira Quetiapine Fumarate (Quetiapine 200 Mg Tab) 400 mg PO QHS [facility] Last Admin: 04/05/21 21:48 Dose: 400 mg Documented by: Quetiapine Fumarate (Quetiapine 200 Mg Tab) 200 mg PO DAILY [facility] Last Admin: 04/05/21 09:43 Dose: 200 mg Documented by: Results - Results Labs/Vitals: Laboratory Last Values WBC 5.8 K/mm3 (4.5-11.0) 04/05/21 09:15 RBC 4.87 M/mm3 (3.65-5.03) 04/05/21 09:15 Hgb 13.6 gm/dl (11.8-15.2) 04/05/21 09:15 Hct 41.3 % (35.5-45.6) 04/05/21 09:15 MCV 85 fl (84-94) 04/05/21 09:15 MCH 28 pg (28-32) 04/05/21 09:15 MCHC 33 % (32-34) 04/05/21 09:15 RDW 15.1 % (13.2-15.2) 04/05/21 09:15 Plt Count 194 K/mm3 (140-440) 04/05/21 09:15 Lymph % (Auto) 24.1 % (13.4-35.0) 04/05/21 09:15 [place] % (Auto) 5.7 % (0.0-7.3) 04/05/21 09:15 Eos % (Auto) 3.9 % (0.0-4.3) 04/05/21 09:15 Baso % (Auto) 0.3 % (0.0-1.8) 04/05/21 09:15 Lymph # (Auto) 1.4 K/mm3 (1.2-5.4) 04/05/21 09:15 [place] # (Auto) 0.3 K/mm3 (0.0-0.8) 04/05/21 09:15 Eos # (Auto) 0.2 K/mm3 (0.0-0.4) 04/05/21 09:15 Baso # (Auto) 0.0 K/mm3 (0.0-0.1) 04/05/21 09:15 Seg Neutrophils % 66.0 % (40.0-70.0) 04/05/21 09:15 Seg Neutrophils # 3.8 K/mm3 (1.8-7.7) 04/05/21 09:15 Sodium 139 mmol/L (137-145) 04/05/21 09:15 Potassium 4.1 mmol/L (3.6-5.0) 04/05/21 09:15 Chloride 101.7 mmol/L (98-107) 04/05/21 09:15 Carbon Dioxide 26 mmol/L (22-30) 04/05/21 09:15 Anion Gap 15 mmol/L 04/05/21 09:15 BUN 15 mg/dL (9-20) 04/05/21 09:15 Creatinine 0.6 mg/dL (0.8-1.3) L 04/05/21 09:15 Estimated GFR > 60 ml/min 04/05/21 09:15 BUN/Creatinine Ratio 25 % 04/05/21 09:15 Glucose 103 mg/dL (75-100) H 04/05/21 09:15 POC Glucose 107 mg/dL (70-105) H 04/03/21 22:22 Hemoglobin A1c 5.5 % (4-6) 04/05/21 09:15 Calcium 9.8 mg/dL (8.4-10.2) D 04/05/21 09:15 Total Bilirubin 0.50 mg/dL (0.1-1.2) 04/05/21 09:15 AST 21 units/L (5-40) 04/05/21 09:15 ALT 18 units/L (7-56) 04/05/21 09:15 Alkaline Phosphatase 67 units/L (35-129) 04/05/21 09:15 Total Protein 6.9 g/dL (6.3-8.2) 04/05/21 09:15 Albumin 4.0 g/dL (3.9-5) 04/05/21 09:15 Albumin/Globulin Ratio 1.4 % 04/05/21 09:15 TSH 1.130 mlU/mL (0.270-4.200) 04/05/21 09:15 Hepatitis A IgM Ab Non-reactive (NonReactive) 04/05/21 09:15 Hep Bs Antigen Nonreactive (Negative) 04/05/21 09:15 Hep B Core IgM Ab Non-reactive (NonReactive) 04/05/21 09:15 Hepatitis C Antibody Non-reactive (NonReactive) 04/05/21 09:15 Last Vital Signs Temp 98.4 F 04/05/21 20:24 Pulse 96 H 04/05/21 20:24 Resp 16 04/05/21 20:24 BP 118/70 04/05/21 20:24 Pulse Ox 96 04/05/21 20:24
[2021-04-06] MEDS: ACETAMINOPHEN 325 MG TAB PO PRN ×2 (09:33→20:25)
[2021-04-06] MEDS: amLODIPine 10 MG TAB PO SCH (09:35)
[2021-04-06] MEDS: QUEtiapine 200 MG TAB PO SCH ×2 (09:36→21:21)
[2021-04-06] MEDS: CITALOPRAM 20 MG TAB PO SCH (09:36)
[2021-04-06] MEDS: hydroCHLOROthiazide 12.5 MG CAP PO SCH (09:36)
[2021-04-06] MEDS: levETIRAcetam 500 MG TAB PO SCH ×2 (10:21→21:21)
--- NOTE | 2021-04-07 10:01 | Progress Note ---
Subjective Date of service: 04/07/21 Principal diagnosis: MDD Subjective Comment: The patient was seen today. He says he is going to a [facility] program. The patient says he feels better. He denies SI/HI or hallucinations of any kind. Will plan for discharge once the has outpatient resources in place for continuity of mental health. REVIEW OF SYSTEMS Constitutional: Negative for weight loss ENT: Negative for stridor Respiratory: Negative for cough or hemoptysis All other systems reviewed and are negative MENTAL STATUS EXAMINATION General Appearance and Behavior: Age appropriate, good hygiene, wearing appropriate clothes, poor eye contact, irritable Cooperation: uncooperative, guarded Mood: Depressed Affect and affective range: congruent with mood Thought Process: Goal directed Thought Content: Suicidal Speech: normal tone and pace Suicidal Ideation: Yes Homicidal Ideation: Denies Hallucinations: Denies Delusions: Denies Impulse Control: Impaired Insight and Judgment: Limited insight and poor judgment, Memory: Normal Attention: Normal Orientation: Alert, oriented Assessment and Plan (1) Major depressive disorder, recurrent,severe-F33.2 (2) Alcohol use Disorder Current Visit: Yes Status: Acute Treatment Plan Patient admitted for inpatient psychiatric evaluation, medication adjustment and close monitoring The patient's behavior, mood, sleep and appetite will be closely monitored. Patient enrolled in individual and group therapeutic sessions and encouraged to attend. Patient provided with a safe and structured environment. Patient's physical health needs will be addressed by the Hospitalist. Hospitalist Consulted Labs including CBC, CMP, Lipid profile and Hemoglobin A1C levels ordered for baseline reference Social Assessment will be completed and the Taffy Puller will work with patient and family to ensure a suitable and safe disposition Medication adjustment will be made as clinically indicated No changes today Usual Wellness Jew/Preservation: - Start Trazodone 50 mg po QHS & 50 mg po QHS PRN between 10 PM & 2 AM for insomnia - Start Melatonin 5 mg po QHS to promote circadian rhythm The patient agreed on the treatment plan, understood the risk, benefit, alternative treatment, potential consequence of no treatment, and gave informed consent. Estimated days: 6 Post hospital care: primary care provider, psychiatric provider Case staffed with Dr. Rodriguez Medications and Allergies Allergies Allergy/AdvReac Type Severity Reaction Status Date / Time haloperidol [From Haldol] Allergy Intermediate Unknown Verified 02/28/21 21:07 ibuprofen [From Motrin] Allergy Intermediate Unknown Verified 02/28/21 21:07 Home Medications Medication Instructions Recorded Confirmed Last Taken Type hydroCHLOROthiazide 12.5 mg PO DAILY 03/01/21 04/03/21 Unknown History [Hydrochlorothiazide] Citalopram [Celexa] 20 mg PO QDAY 30 Days #30 03/06/21 04/03/21 Unknown Rx QUEtiapine [SEROquel] 200 mg PO DAILY 30 Days #30 tablet 03/06/21 04/03/21 Unkno wn Rx QUEtiapine [SEROquel] 400 mg PO QHS 30 Days #30 tablet 03/06/21 04/03/21 Unknown Rx cloNIDine [Catapres] 0.2 mg PO Q12HR tablet 03/06/21 04/03/21 Unknown Rx levETIRAcetam [Keppra TAB] 500 mg PO BID 30 Days #60 tablet 03/06/21 04/03/21 Unknown Rx Acetaminophen [Aphen] 650 mg PO PRN 04/03/21 04/03/21 Unknown History Antacid [Alum-Mag Hydrox-Simeth 30 ml PO Q6HR 04/03/21 04/03/21 Unknown History [id number]/5Ml Susp] Bismuth Subsalicylate [Kaopectate] 262 mg PO PRN PRN 04/03/21 04/03/21 Unknown History Docusate Sodium [Colace] 100 mg PO BID PRN 04/03/21 04/03/21 Unknown History amLODIPine [Norvasc] 10 mg PO DAILY 04/03/21 04/03/21 Unknown History Active Meds: Active Medications Acetaminophen (Acetaminophen 325 Mg Tab) 650 mg PO Q6H PRN PRN Reason: Pain, Mild (1-3) Last Admin: 04/06/21 20:25 Dose: 650 mg Documented by: Al Hydrox/Mg Hydrox/Simethicone (Alum-Mag Hydroxide-Simethicone [id number]/5ml Oral Liqd 30 Ml) 30 ml PO Q6H PRN PRN Reason: Indigestion Last Admin: 04/03/21 22:49 Dose: 30 ml Documented by: Amlodipine Besylate (Amlodipine 10 Mg Tab) 10 mg PO DAILY LORAINE Last Admin: 04/06/21 09:35 Dose: 10 mg Documented by: Chlordiazepoxide HCl (Chlordiazepoxide 25 Mg Cap) 50 mg PO Q1H PRN PRN Reason: Yanira 8-15 Chlordiazepoxide HCl (Chlordiazepoxide 25 Mg Cap) 100 mg PO Q1H PRN PRN Reason: Yanira 16- Citalopram Hydrobromide (Citalopram 20 Mg Tab) 20 mg PO QDAY [facility] Last Admin: 04/06/21 09:36 Dose: 20 mg Documented by: Docusate Sodium (Docusate Sodium 100 Mg Cap) 100 mg PO BID PRN PRN Reason: consitpation Hydrochlorothiazide (Hydrochlorothiazide 12.5 Mg Cap) 12.5 mg PO DAILY [facility] Last Admin: 04/06/21 09:36 Dose: 12.5 mg Documented by: Levetiracetam (Levetiracetam 500 Mg Tab) 500 mg PO BID [facility] Last Admin: 04/06/21 21:21 Dose: 500 mg Documented by: Lorazepam (Lorazepam 2 Mg Tab) 2 mg PO Q1H PRN PRN Reason: Yanira 8 Lorazepam (Lorazepam 2 Mg Tab) 4 mg PO Q1H PRN PRN Reason: Yanira Quetiapine Fumarate (Quetiapine 200 Mg Tab) 400 mg PO QHS [facility] Last Admin: 04/06/21 21:21 Dose: 400 mg Documented by: Quetiapine Fumarate (Quetiapine 200 Mg Tab) 200 mg PO DAILY [facility] Last Admin: 04/06/21 09:36 Dose: 200 mg Documented by: Results - Results Labs/Vitals: Laboratory Last Values WBC 5.8 K/mm3 (4.5-11.0) 04/05/21 09:15 RBC 4.87 M/mm3 (3.65-5.03) 04/05/21 09:15 Hgb 13.6 gm/dl (11.8-15.2) 04/05/21 09:15 Hct 41.3 % (35.5-45.6) 04/05/21 09:15 MCV 85 fl (84-94) 04/05/21 09:15 MCH 28 pg (28-32) 04/05/21 09:15 MCHC 33 % (32-34) 04/05/21 09:15 RDW 15.1 % (13.2-15.2) 04/05/21 09:15 Plt Count 194 K/mm3 (140-440) 04/05/21 09:15 Lymph % (Auto) 24.1 % (13.4-35.0) 04/05/21 09:15 [place] % (Auto) 5.7 % (0.0-7.3) 04/05/21 09:15 Eos % (Auto) 3.9 % (0.0-4.3) 04/05/21 09:15 Baso % (Auto) 0.3 % (0.0-1.8) 04/05/21 09:15 Lymph # (Auto) 1.4 K/mm3 (1.2-5.4) 04/05/21 09:15 [place] # (Auto) 0.3 K/mm3 (0.0-0.8) 04/05/21 09:15 Eos # (Auto) 0.2 K/mm3 (0.0-0.4) 04/05/21 09:15 Baso # (Auto) 0.0 K/mm3 (0.0-0.1) 04/05/21 09:15 Seg Neutrophils % 66.0 % (40.0-70.0) 04/05/21 09:15 Seg Neutrophils # 3.8 K/mm3 (1.8-7.7) 04/05/21 09:15 Sodium 139 mmol/L (137-145) 04/05/21 09:15 Potassium 4.1 mmol/L (3.6-5.0) 04/05/21 09:15 Chloride 101.7 mmol/L (98-107) 04/05/21 09:15 Carbon Dioxide 26 mmol/L (22-30) 04/05/21 09:15 Anion Gap 15 mmol/L 04/05/21 09:15 BUN 15 mg/dL (9-20) 04/05/21 09:15 Creatinine 0.6 mg/dL (0.8-1.3) L 04/05/21 09:15 Estimated GFR > 60 ml/min 04/05/21 09:15 BUN/Creatinine Ratio 25 % 04/05/21 09:15 Glucose 103 mg/dL (75-100) H 04/05/21 09:15 POC Glucose 107 mg/dL (70-105) H 04/03/21 22:22 Hemoglobin A1c 5.5 % (4-6) 04/05/21 09:15 Calcium 9.8 mg/dL (8.4-10.2) D 04/05/21 09:15 Total Bilirubin 0.50 mg/dL (0.1-1.2) 04/05/21 09:15 AST 21 units/L (5-40) 04/05/21 09:15 ALT 18 units/L (7-56) 04/05/21 09:15 Alkaline Phosphatase 67 units/L (35-129) 04/05/21 09:15 Total Protein 6.9 g/dL (6.3-8.2) 04/05/21 09:15 Albumin 4.0 g/dL (3.9-5) 04/05/21 09:15 Albumin/Globulin Ratio 1.4 % 04/05/21 09:15 TSH 1.130 mlU/mL (0.270-4.200) 04/05/21 09:15 Hepatitis A IgM Ab Non-reactive (NonReactive) 04/05/21 09:15 Hep Bs Antigen Nonreactive (Negative) 04/05/21 09:15 Hep B Core IgM Ab Non-reactive (NonReactive) 04/05/21 09:15 Hepatitis C Antibody Non-reactive (NonReactive) 04/05/21 09:15 Last Vital Signs Temp 97.4 F L 04/07/21 08:07 Pulse 93 H 04/07/21 08:07 Resp 18 04/07/21 08:07 BP 138/92 04/07/21 08:07 Pulse Ox 97 04/07/21 08:07
[2021-04-07] MEDS: QUEtiapine 200 MG TAB PO SCH ×2 (10:11→21:22)
[2021-04-07] MEDS: levETIRAcetam 500 MG TAB PO SCH ×2 (10:11→21:22)
[2021-04-07] MEDS: CITALOPRAM 20 MG TAB PO SCH (10:11)
[2021-04-07] MEDS: amLODIPine 10 MG TAB PO SCH (10:12)
[2021-04-07] MEDS: ACETAMINOPHEN 325 MG TAB PO PRN ×2 (10:13→20:38)
--- NOTE | 2021-04-07 12:12 | Progress Note ---
Assessment and Plan - Patient Problems (1) Suicidal ideation Current Visit: No Status: Acute Plan to address problem: Management as per psychiatry team (2) Schizoaffective disorder Current Visit: No Status: Acute Qualifiers: Schizoaffective disorder type: bipolar Qualified Code(s): F25.0 - Schizoaffective disorder, bipolar type Plan to address problem: Continue quetiapine Management as per psychiatry team Recommend obtaining EKG for QTC assessment (3) Seizure disorder Current Visit: Yes Status: Acute Plan to address problem: Continue home Keppra 500 twice daily (4) Hypertension Current Visit: No Status: Acute Qualifiers: Hypertension type: essential hypertension Plan to address problem: -Elevated blood pressure in last 24 hours, highest is systolic 138 mmHg Continue home amlodipine - HCTZ increased from 12.5 mg daily to 25 mg daily dosing (5) Alcoholism Current Visit: No Status: Acute Plan to address problem: -Currently no signs and symptoms of withdrawal CIWA protocol -Ativan as needed (6) Peptic ulcer disease Current Visit: No Status: Acute Plan to address problem: Prior history of peptic ulcer disease Recommending outpatient follow-up with a GI specialist (7) Hyperglycemia Current Visit: Yes Status: Acute Plan to address problem: BG mildly elevated 103 A1c is 5.5 -Recommend ADA/AHA recommended diet No indication for treatment at this time History Interval history: No overnight events. Hospitalist Physical - Physical exam Narrative exam: Physical Exam: Constitutional: Alert, cooperative. No acute distress Head, Ears, Nose: Normocephalic, atraumatic. External ears, nose normal Eyes: Conjunctivae/corneas clear. No icterus. No ptosis. Cross eyed Neck: Supple, no meningeal signs Oral: dentition poor, no thrush Cardiovascular: S1, S2 normal. Respiratory: Good air entry, clear to auscultation bilaterally GI: Soft, non-tender; bowel sounds normal. No peritoneal signs. Musculoskeletal: No pedal edema, no cyanosis. Skin: No rash or abscess Hem/Lymphatic: No palpable cervical or supraclavicular nodes. No lymphangitis Psych: Mood ok on my encounter. Neurological: Awake, alert, oriented. No gross abnormality - Constitutional Vitals: Temp Pulse Resp BP Pulse Ox 97.4 F L 92 H 18 138/93 97 04/07/21 08:07 04/07/21 10:12 04/07/21 08:07 04/07/21 10:12 04/07/21 08:07 Results - Labs CBC & Chem 7: 04/05/21 09:15 04/05/21 09:15 Labs: Laboratory Last Values WBC 5.8 K/mm3 (4.5-11.0) 04/05/21 09:15 RBC 4.87 M/mm3 (3.65-5.03) 04/05/21 09:15 Hgb 13.6 gm/dl (11.8-15.2) 04/05/21 09:15 Hct 41.3 % (35.5-45.6) 04/05/21 09:15 MCV 85 fl (84-94) 04/05/21 09:15 MCH 28 pg (28-32) 04/05/21 09:15 MCHC 33 % (32-34) 04/05/21 09:15 RDW 15.1 % (13.2-15.2) 04/05/21 09:15 Plt Count 194 K/mm3 (140-440) 04/05/21 09:15 Lymph % (Auto) 24.1 % (13.4-35.0) 04/05/21 09:15 [place] % (Auto) 5.7 % (0.0-7.3) 04/05/21 09:15 Eos % (Auto) 3.9 % (0.0-4.3) 04/05/21 09:15 Baso % (Auto) 0.3 % (0.0-1.8) 04/05/21 09:15 Lymph # (Auto) 1.4 K/mm3 (1.2-5.4) 04/05/21 09:15 [place] # (Auto) 0.3 K/mm3 (0.0-0.8) 04/05/21 09:15 Eos # (Auto) 0.2 K/mm3 (0.0-0.4) 04/05/21 09:15 Baso # (Auto) 0.0 K/mm3 (0.0-0.1) 04/05/21 09:15 Seg Neutrophils % 66.0 % (40.0-70.0) 04/05/21 09:15 Seg Neutrophils # 3.8 K/mm3 (1.8-7.7) 04/05/21 09:15 Sodium 139 mmol/L (137-145) 04/05/21 09:15 Potassium 4.1 mmol/L (3.6-5.0) 04/05/21 09:15 Chloride 101.7 mmol/L (98-107) 04/05/21 09:15 Carbon Dioxide 26 mmol/L (22-30) 04/05/21 09:15 Anion Gap 15 mmol/L 04/05/21 09:15 BUN 15 mg/dL (9-20) 04/05/21 09:15 Creatinine 0.6 mg/dL (0.8-1.3) L 04/05/21 09:15 Estimated GFR > 60 ml/min 04/05/21 09:15 BUN/Creatinine Ratio 25 % 04/05/21 09:15 Glucose 103 mg/dL (75-100) H 04/05/21 09:15 POC Glucose 107 mg/dL (70-105) H 04/03/21 22:22 Hemoglobin A1c 5.5 % (4-6) 04/05/21 09:15 Calcium 9.8 mg/dL (8.4-10.2) D 04/05/21 09:15 Total Bilirubin 0.50 mg/dL (0.1-1.2) 04/05/21 09:15 AST 21 units/L (5-40) 04/05/21 09:15 ALT 18 units/L (7-56) 04/05/21 09:15 Alkaline Phosphatase 67 units/L (35-129) 04/05/21 09:15 Total Protein 6.9 g/dL (6.3-8.2) 04/05/21 09:15 Albumin 4.0 g/dL (3.9-5) 04/05/21 09:15 Albumin/Globulin Ratio 1.4 % 04/05/21 09:15 TSH 1.130 mlU/mL (0.270-4.200) 04/05/21 09:15 Hepatitis A IgM Ab Non-reactive (NonReactive) 04/05/21 09:15 Hep Bs Antigen Nonreactive (Negative) 04/05/21 09:15 Hep B Core IgM Ab Non-reactive (NonReactive) 04/05/21 09:15 Hepatitis C Antibody Non-reactive (NonReactive) 04/05/21 09:15 Feliz/IV: Voiding Method Toilet Active Medications - Current Medications Current Medications: Generic Name Dose Route Start Last Admin Trade Name Freq PRN Reason Stop Dose Admin Acetaminophen 650 mg 04/03/21 22:40 04/07/21 10:13 Acetaminophen 325 Mg Tab PO 650 mg Q6H PRN Administration Pain, Mild (1-3) Al Hydrox/Mg Hydrox/Simethicone 30 ml 04/03/21 22:42 04/03/21 22:49 Alum-Mag Hydroxide-Simethicone [id number]/5ml Oral Liqd 30 Ml PO 30 ml Q6H PRN Administration Indigestion Amlodipine Besylate 10 mg 04/04/21 10:00 04/07/21 10:12 Amlodipine 10 Mg Tab PO 10 mg DAILY LORAINE Administration Chlordiazepoxide HCl 50 mg 04/04/21 01:20 Chlordiazepoxide 25 Mg Cap PO Q1H PRN CIWA-Ar 8-15 Chlordiazepoxide HCl 100 mg 04/04/21 01:20 Chlordiazepoxide 25 Mg Cap PO Q1H PRN CIWA-Ar 16-25 Citalopram Hydrobromide 20 mg 04/04/21 10:00 04/07/21 10:11 Citalopram 20 Mg Tab PO 20 mg QDAY LORAINE Administration Docusate Sodium 100 mg 04/03/21 18:25 Docusate Sodium 100 Mg Cap PO BID PRN consitpation Hydrochlorothiazide 12.5 mg 04/04/21 10:00 04/06/21 09:36 Hydrochlorothiazide 12.5 Mg Cap PO 12.5 mg DAILY LORAINE Administration Levetiracetam 500 mg 04/03/21 22:00 04/07/21 10:11 Levetiracetam 500 Mg Tab PO 500 mg BID LORAINE Administration Lorazepam 2 mg 04/04/21 01:20 Lorazepam 2 Mg Tab PO Q1H PRN CIWA-Ar 8-15 Lorazepam 4 mg 04/04/21 01:20 Lorazepam 2 Mg Tab PO Q1H PRN CIWA-Ar 16-25 Quetiapine Fumarate 400 mg 04/03/21 22:00 04/06/21 21:21 Quetiapine 200 Mg Tab PO 400 mg QHS LORAINE Administration Quetiapine Fumarate 200 mg 04/04/21 10:00 04/07/21 10:11 Quetiapine 200 Mg Tab PO 200 mg DAILY LORAINE Administration
[2021-04-07] MEDS ORDERED: hydroCHLOROthiazide 12.5 MG CAP PO SCH (12:13)
[2021-04-07] MEDS: hydroCHLOROthiazide 12.5 MG CAP PO SCH (13:38)
[2021-04-07] MEDS: hydroCHLOROthiazide 25 MG TAB PO SCH (14:29)
--- NOTE | 2021-04-08 07:48 | Progress Note ---
Assessment and Plan - Patient Problems (1) Suicidal ideation Current Visit: No Status: Acute Plan to address problem: Management as per psychiatry team (2) Schizoaffective disorder Current Visit: No Status: Acute Qualifiers: Schizoaffective disorder type: bipolar Qualified Code(s): F25.0 - Schizoaffective disorder, bipolar type Plan to address problem: Continue quetiapine Management as per psychiatry team Recommend obtaining EKG for QTC assessment (3) Seizure disorder Current Visit: Yes Status: Acute Plan to address problem: Continue home Keppra 500 twice daily (4) Hypertension Current Visit: No Status: Acute Qualifiers: Hypertension type: essential hypertension Plan to address problem: -normotensive since last night. Continue home amlodipine 10 mg po daily - HCTZ 25 mg daily dosing (5) Alcoholism Current Visit: No Status: Acute Plan to address problem: -Currently no signs and symptoms of withdrawal CIWA protocol -Ativan as needed (6) Peptic ulcer disease Current Visit: No Status: Acute Plan to address problem: Prior history of peptic ulcer disease Recommending outpatient follow-up with a GI specialist (7) Hyperglycemia Current Visit: Yes Status: Acute Plan to address problem: BG mildly elevated 103 A1c is 5.5 -Recommend ADA/AHA recommended diet No indication for treatment at this time History Interval history: No overnight events. Hospitalist Physical - Physical exam Narrative exam: Physical Exam: Constitutional: Alert, cooperative. No acute distress Head, Ears, Nose: Normocephalic, atraumatic. External ears, nose normal Eyes: Conjunctivae/corneas clear. No icterus. No ptosis. Cross eyed Neck: Supple, no meningeal signs Oral: dentition poor, no thrush Cardiovascular: S1, S2 normal. Respiratory: Good air entry, clear to auscultation bilaterally GI: Soft, non-tender; bowel sounds normal. No peritoneal signs. Musculoskeletal: No pedal edema, no cyanosis. Skin: No rash or abscess Hem/Lymphatic: No palpable cervical or supraclavicular nodes. No lymphangitis Psych: Mood ok on my encounter. Neurological: Awake, alert, oriented. No gross abnormality - Constitutional Vitals: Temp Pulse Resp BP Pulse Ox 97.6 F 86 18 119/83 97 04/07/21 21:20 04/07/21 21:20 04/07/21 21:20 04/07/21 21:20 04/07/21 21:20 Results - Labs CBC & Chem 7: 04/05/21 09:15 04/05/21 09:15 Labs: Laboratory Last Values WBC 5.8 K/mm3 (4.5-11.0) 04/05/21 09:15 RBC 4.87 M/mm3 (3.65-5.03) 04/05/21 09:15 Hgb 13.6 gm/dl (11.8-15.2) 04/05/21 09:15 Hct 41.3 % (35.5-45.6) 04/05/21 09:15 MCV 85 fl (84-94) 04/05/21 09:15 MCH 28 pg (28-32) 04/05/21 09:15 MCHC 33 % (32-34) 04/05/21 09:15 RDW 15.1 % (13.2-15.2) 04/05/21 09:15 Plt Count 194 K/mm3 (140-440) 04/05/21 09:15 Lymph % (Auto) 24.1 % (13.4-35.0) 04/05/21 09:15 [place] % (Auto) 5.7 % (0.0-7.3) 04/05/21 09:15 Eos % (Auto) 3.9 % (0.0-4.3) 04/05/21 09:15 Baso % (Auto) 0.3 % (0.0-1.8) 04/05/21 09:15 Lymph # (Auto) 1.4 K/mm3 (1.2-5.4) 04/05/21 09:15 [place] # (Auto) 0.3 K/mm3 (0.0-0.8) 04/05/21 09:15 Eos # (Auto) 0.2 K/mm3 (0.0-0.4) 04/05/21 09:15 Baso # (Auto) 0.0 K/mm3 (0.0-0.1) 04/05/21 09:15 Seg Neutrophils % 66.0 % (40.0-70.0) 04/05/21 09:15 Seg Neutrophils # 3.8 K/mm3 (1.8-7.7) 04/05/21 09:15 Sodium 139 mmol/L (137-145) 04/05/21 09:15 Potassium 4.1 mmol/L (3.6-5.0) 04/05/21 09:15 Chloride 101.7 mmol/L (98-107) 04/05/21 09:15 Carbon Dioxide 26 mmol/L (22-30) 04/05/21 09:15 Anion Gap 15 mmol/L 04/05/21 09:15 BUN 15 mg/dL (9-20) 04/05/21 09:15 Creatinine 0.6 mg/dL (0.8-1.3) L 04/05/21 09:15 Estimated GFR > 60 ml/min 04/05/21 09:15 BUN/Creatinine Ratio 25 % 04/05/21 09:15 Glucose 103 mg/dL (75-100) H 04/05/21 09:15 POC Glucose 107 mg/dL (70-105) H 04/03/21 22:22 Hemoglobin A1c 5.5 % (4-6) 04/05/21 09:15 Calcium 9.8 mg/dL (8.4-10.2) D 04/05/21 09:15 Total Bilirubin 0.50 mg/dL (0.1-1.2) 04/05/21 09:15 AST 21 units/L (5-40) 04/05/21 09:15 ALT 18 units/L (7-56) 04/05/21 09:15 Alkaline Phosphatase 67 units/L (35-129) 04/05/21 09:15 Total Protein 6.9 g/dL (6.3-8.2) 04/05/21 09:15 Albumin 4.0 g/dL (3.9-5) 04/05/21 09:15 Albumin/Globulin Ratio 1.4 % 04/05/21 09:15 TSH 1.130 mlU/mL (0.270-4.200) 04/05/21 09:15 Hepatitis A IgM Ab Non-reactive (NonReactive) 04/05/21 09:15 Hep Bs Antigen Nonreactive (Negative) 04/05/21 09:15 Hep B Core IgM Ab Non-reactive (NonReactive) 04/05/21 09:15 Hepatitis C Antibody Non-reactive (NonReactive) 04/05/21 09:15 Feliz/IV: Voiding Method Toilet Active Medications - Current Medications Current Medications: Generic Name Dose Route Start Last Admin Trade Name Freq PRN Reason Stop Dose Admin Acetaminophen 650 mg 04/03/21 22:40 04/07/21 20:38 Acetaminophen 325 Mg Tab PO 650 mg Q6H PRN Administration Pain, Mild (1-3) Al Hydrox/Mg Hydrox/Simethicone 30 ml 04/03/21 22:42 04/03/21 22:49 Alum-Mag Hydroxide-Simethicone [id number]/5ml Oral Liqd 30 Ml PO 30 ml Q6H PRN Administration Indigestion Amlodipine Besylate 10 mg 04/04/21 10:00 04/07/21 10:12 Amlodipine 10 Mg Tab PO 10 mg DAILY LORAINE Administration Citalopram Hydrobromide 20 mg 04/04/21 10:00 04/07/21 10:11 Citalopram 20 Mg Tab PO 20 mg QDAY LORAINE Administration Docusate Sodium 100 mg 04/03/21 18:25 Docusate Sodium 100 Mg Cap PO BID PRN consitpation Hydrochlorothiazide 25 mg 04/07/21 14:00 04/07/21 14:29 Hydrochlorothiazide 25 Mg Tab PO 25 mg QDAY LORAINE Administration Levetiracetam 500 mg 04/03/21 22:00 04/07/21 21:22 Levetiracetam 500 Mg Tab PO 500 mg BID LORAINE Administration Quetiapine Fumarate 400 mg 04/03/21 22:00 04/07/21 21:22 Quetiapine 200 Mg Tab PO 400 mg QHS LORAINE Administration Quetiapine Fumarate 200 mg 04/04/21 10:00 04/07/21 10:11 Quetiapine 200 Mg Tab PO 200 mg DAILY LORAINE Administration
--- NOTE | 2021-04-08 09:16 | Progress Note ---
Subjective Date of service: 04/08/21 Principal diagnosis: MDD Subjective Comment: The patient was seen today. He denies SI/HI. He also denies hallucinations. He says his mood is "okay." The patient will be discharged once the social media job titles is able to set him up for [facility] program to ensue continuity of psych services. REVIEW OF SYSTEMS Constitutional: Negative for weight loss ENT: Negative for stridor Respiratory: Negative for cough or hemoptysis All other systems reviewed and are negative MENTAL STATUS EXAMINATION General Appearance and Behavior: Age appropriate, good hygiene, wearing appropriate clothes, poor eye contact, irritable Cooperation: uncooperative, guarded Mood: Depressed Affect and affective range: congruent with mood Thought Process: Goal directed Thought Content: Suicidal Speech: normal tone and pace Suicidal Ideation: Yes Homicidal Ideation: Denies Hallucinations: Denies Delusions: Denies Impulse Control: Impaired Insight and Judgment: Limited insight and poor judgment, Memory: Normal Attention: Normal Orientation: Alert, oriented Assessment and Plan (1) Major depressive disorder, recurrent,severe-F33.2 (2) Alcohol use Disorder Current Visit: Yes Status: Acute Treatment Plan Patient admitted for inpatient psychiatric evaluation, medication adjustment and close monitoring The patient's behavior, mood, sleep and appetite will be closely monitored. Patient enrolled in individual and group therapeutic sessions and encouraged to attend. Patient provided with a safe and structured environment. Patient's physical health needs will be addressed by the Hospitalist. Hospitalist Consulted Labs including CBC, CMP, Lipid profile and Hemoglobin A1C levels ordered for baseline reference Social Assessment will be completed and the [facility] will work with patient and family to ensure a suitable and safe disposition Medication adjustment will be made as clinically indicated No changes today Usual Wellness Mosque/Preservation: - Start Trazodone 50 mg po QHS & 50 mg po QHS PRN between 10 PM & 2 AM for insomnia - Start Melatonin 5 mg po QHS to promote circadian rhythm The patient agreed on the treatment plan, understood the risk, benefit, alternative treatment, potential consequence of no treatment, and gave informed consent. Estimated days: 6 Post hospital care: primary care provider, psychiatric provider Case staffed with Dr. Rodriguez Medications and Allergies Allergies Allergy/AdvReac Type Severity Reaction Status Date / Time haloperidol [From Haldol] Allergy Intermediate Unknown Verified 02/28/21 21:07 ibuprofen [From Motrin] Allergy Intermediate Unknown Verified 02/28/21 21:07 Home Medications Medication Instructions Recorded Confirmed Last Taken Type hydroCHLOROthiazide 12.5 mg PO DAILY 03/01/21 04/03/21 Unknown History [Hydrochlorothiazide] Citalopram [Celexa] 20 mg PO QDAY 30 Days #30 03/06/21 04/03/21 Unknown Rx QUEtiapine [SEROquel] 200 mg PO DAILY 30 Days #30 tablet 03/06/21 04/03/21 Unknown Rx QUEtiapine [SEROquel] 400 mg PO QHS 30 Days #30 tablet 03/06/21 04/03/21 Unknown Rx cloNIDine [Catapres] 0.2 mg PO Q12HR tablet 03/06/21 04/03/21 Unknown Rx levETIRAcetam [Keppra TAB] 500 mg PO BID 30 Days #60 tablet 03/06/21 04/03/21 Unknown Rx Acetaminophen [Aphen] 650 mg PO PRN 04/03/21 04/03/21 Unknown History Antacid [Alum-Mag Hydrox-Simeth 30 ml PO Q6HR 04/03/21 04/03/21 Unknown History [id number]/5Ml Susp] Bismuth Subsalicylate [Kaopectate] 262 mg PO PRN PRN 04/03/21 04/03/21 Unknown History Docusate Sodium [Colace] 100 mg PO BID PRN 04/03/21 04/03/21 Unknown History amLODIPine [Norvasc] 10 mg PO DAILY 04/03/21 04/03/21 Unknown History Active Meds: Active Medications Acetaminophen (Acetaminophen 325 Mg Tab) 650 mg PO Q6H PRN PRN Reason: Pain, Mild (1-3) Last Admin: 04/07/21 20:38 Dose: 650 mg Documented by: Al Hydrox/Mg Hydrox/Simethicone (Alum-Mag Hydroxide-Simethicone [phone]/5ml Oral Liqd 30 Ml) 30 ml PO Q6H PRN PRN Reason: Indigestion Last Admin: 04/03/21 22:49 Dose: 30 ml Documented by: Amlodipine Besylate (Amlodipine 10 Mg Tab) 10 mg PO DAILY [facility] Last Admin: 04/07/21 10:12 Dose: 10 mg Documented by: Citalopram Hydrobromide (Citalopram 20 Mg Tab) 20 mg PO QDAY [facility] Last Admin: 04/07/21 10:11 Dose: 20 mg Documented by: Docusate Sodium (Docusate Sodium 100 Mg Cap) 100 mg PO BID PRN PRN Reason: consitpation Hydrochlorothiazide (Hydrochlorothiazide 25 Mg Tab) 25 mg PO QDAY [facility] Last Admin: 04/07/21 14:29 Dose: 25 mg Documented by: Levetiracetam (Levetiracetam 500 Mg Tab) 500 mg PO BID [facility] Last Admin: 04/07/21 21:22 Dose: 500 mg Documented by: Quetiapine Fumarate (Quetiapine 200 Mg Tab) 400 mg PO QHS [facility] Last Admin: 04/07/21 21:22 Dose: 400 mg Documented by: Quetiapine Fumarate (Quetiapine 200 Mg Tab) 200 mg PO DAILY [facility] Last Admin: 04/07/21 10:11 Dose: 200 mg Documented by: Results - Results Labs/Vitals: Laboratory Last Values WBC 5.8 K/mm3 (4.5-11.0) 04/05/21 09:15 RBC 4.87 M/mm3 (3.65-5.03) 04/05/21 09:15 Hgb 13.6 gm/dl (11.8-15.2) 04/05/21 09:15 Hct 41.3 % (35.5-45.6) 04/05/21 09:15 MCV 85 fl (84-94) 04/05/21 09:15 MCH 28 pg (28-32) 04/05/21 09:15 MCHC 33 % (32-34) 04/05/21 09:15 RDW 15.1 % (13.2-15.2) 04/05/21 09:15 Plt Count 194 K/mm3 (140-440) 04/05/21 09:15 Lymph % (Auto) 24.1 % (13.4-35.0) 04/05/21 09:15 [place] % (Auto) 5.7 % (0.0-7.3) 04/05/21 09:15 Eos % (Auto) 3.9 % (0.0-4.3) 04/05/21 09:15 Baso % (Auto) 0.3 % (0.0-1.8) 04/05/21 09:15 Lymph # (Auto) 1.4 K/mm3 (1.2-5.4) 04/05/21 09:15 [place] # (Auto) 0.3 K/mm3 (0.0-0.8) 04/05/21 09:15 Eos # (Auto) 0.2 K/mm3 (0.0-0.4) 04/05/21 09:15 Baso # (Auto) 0.0 K/mm3 (0.0-0.1) 04/05/21 09:15 Seg Neutrophils % 66.0 % (40.0-70.0) 04/05/21 09:15 Seg Neutrophils # 3.8 K/mm3 (1.8-7.7) 04/05/21 09:15 Sodium 139 mmol/L (137-145) 04/05/21 09:15 Potassium 4.1 mmol/L (3.6-5.0) 04/05/21 09:15 Chloride 101.7 mmol/L (98-107) 04/05/21 09:15 Carbon Dioxide 26 mmol/L (22-30) 04/05/21 09:15 Anion Gap 15 mmol/L 04/05/21 09:15 BUN 15 mg/dL (9-20) 04/05/21 09:15 Creatinine 0.6 mg/dL (0.8-1.3) L 04/05/21 09:15 Estimated GFR > 60 ml/min 04/05/21 09:15 BUN/Creatinine Ratio 25 % 04/05/21 09:15 Glucose 103 mg/dL (75-100) H 04/05/21 09:15 POC Glucose 107 mg/dL (70-105) H 04/03/21 22:22 Hemoglobin A1c 5.5 % (4-6) 04/05/21 09:15 Calcium 9.8 mg/dL (8.4-10.2) D 04/05/21 09:15 Total Bilirubin 0.50 mg/dL (0.1-1.2) 04/05/21 09:15 AST 21 units/L (5-40) 04/05/21 09:15 ALT 18 units/L (7-56) 04/05/21 09:15 Alkaline Phosphatase 67 units/L (35-129) 04/05/21 09:15 Total Protein 6.9 g/dL (6.3-8.2) 04/05/21 09:15 Albumin 4.0 g/dL (3.9-5) 04/05/21 09:15 Albumin/Globulin Ratio 1.4 % 04/05/21 09:15 TSH 1.130 mlU/mL (0.270-4.200) 04/05/21 09:15 Hepatitis A IgM Ab Non-reactive (NonReactive) 04/05/21 09:15 Hep Bs Antigen Nonreactive (Negative) 04/05/21 09:15 Hep B Core IgM Ab Non-reactive (NonReactive) 04/05/21 09:15 Hepatitis C Antibody Non-reactive (NonReactive) 04/05/21 09:15 Last Vital Signs Temp 97.6 F 04/07/21 21:20 Pulse 86 04/07/21 21:20 Resp 18 04/07/21 21:20 BP 119/83 04/07/21 21:20 Pulse Ox 97 04/07/21 21:20
[2021-04-08] MEDS: hydroCHLOROthiazide 25 MG TAB PO SCH (09:27)
[2021-04-08] MEDS: amLODIPine 10 MG TAB PO SCH (09:28)
[2021-04-08] MEDS: QUEtiapine 200 MG TAB PO SCH ×2 (09:28→21:15)
[2021-04-08] MEDS: CITALOPRAM 20 MG TAB PO SCH (09:28)
[2021-04-08] MEDS: levETIRAcetam 500 MG TAB PO SCH ×2 (09:28→21:14)
[2021-04-08] MEDS: ACETAMINOPHEN 325 MG TAB PO PRN (21:15)
[2021-04-09] MEDS: QUEtiapine 200 MG TAB PO SCH ×2 (09:33→21:08)
[2021-04-09] MEDS: amLODIPine 10 MG TAB PO SCH (09:33)
[2021-04-09] MEDS: hydroCHLOROthiazide 25 MG TAB PO SCH (09:33)
[2021-04-09] MEDS: CITALOPRAM 20 MG TAB PO SCH (09:33)
[2021-04-09] MEDS: levETIRAcetam 500 MG TAB PO SCH ×2 (09:33→21:09)
--- NOTE | 2021-04-09 10:20 | Progress Note ---
Subjective Date of service: 04/09/21 Principal diagnosis: MDD Subjective Comment: The patient was seen today. He denies SI/HI. He also denies hallucinations. He is awaiting to be set up with a [facility] program in another state by the to maintain continuity of care REVIEW OF SYSTEMS Constitutional: Negative for weight loss ENT: Negative for stridor Respiratory: Negative for cough or hemoptysis All other systems reviewed and are negative MENTAL STATUS EXAMINATION General Appearance and Behavior: Age appropriate, good hygiene, wearing appropriate clothes, poor eye contact, irritable Cooperation: uncooperative, guarded Mood: Depressed Affect and affective range: congruent with mood Thought Process: Goal directed Thought Content: Suicidal Speech: normal tone and pace Suicidal Ideation: Yes Homicidal Ideation: Denies Hallucinations: Denies Delusions: Denies Impulse Control: Impaired Insight and Judgment: Limited insight and poor judgment, Memory: Normal Attention: Normal Orientation: Alert, oriented Assessment and Plan (1) Major depressive disorder, recurrent,severe-F33.2 (2) Alcohol use Disorder Current Visit: Yes Status: Acute Treatment Plan Patient admitted for inpatient psychiatric evaluation, medication adjustment and close monitoring The patient's behavior, mood, sleep and appetite will be closely monitored. Patient enrolled in individual and group therapeutic sessions and encouraged to attend. Patient provided with a safe and structured environment. Patient's physical health needs will be addressed by the Hospitalist. Hospitalist Consulted Labs including CBC, CMP, Lipid profile and Hemoglobin A1C levels ordered for baseline reference Social Assessment will be completed and the Geology Technician will work with patient and family to ensure a suitable and safe disposition Medication adjustment will be made as clinically indicated No changes today Usual Wellness Sabianist/Preservation: - Start Trazodone 50 mg po QHS & 50 mg po QHS PRN between 10 PM & 2 AM for insomnia - Start Melatonin 5 mg po QHS to promote circadian rhythm The patient agreed on the treatment plan, understood the risk, benefit, alternative treatment, potential consequence of no treatment, and gave informed consent. Estimated days: 6 Post hospital care: primary care provider, psychiatric provider Case staffed with Dr. Rodriguez Medications and Allergies Allergies Allergy/AdvReac Type Severity Reaction Status Date / Time haloperidol [From Haldol] Allergy Intermediate Unknown Verified 02/28/21 21:07 ibuprofen [From Motrin] Allergy Intermediate Unknown Verified 02/28/21 21:07 Home Medications Medication Instructions Recorded Confirmed Last Taken Type hydroCHLOROthiazide 12.5 mg PO DAILY 03/01/21 04/03/21 Unknown History [Hydrochlorothiazide] Citalopram [Celexa] 20 mg PO QDAY 30 Days #30 03/06/21 04/03/21 Unknown Rx QUEtiapine [SEROquel] 200 mg PO DAILY 30 Days #30 tablet 03/06/21 04/03/21 Unknown Rx QUEtiapine [SEROquel] 400 mg PO QHS 30 Days #30 tablet 03/06/21 04/03/21 Unknown Rx cloNIDine [Catapres] 0.2 mg PO Q12HR tablet 03/06/21 04/03/21 Unknown Rx levETIRAcetam [Keppra TAB] 500 mg PO BID 30 Days #60 tablet 03/06/21 04/03/21 Unknown Rx Acetaminophen [Aphen] 650 mg PO PRN 04/03/21 04/03/21 Unknown History Antacid [Alum-Mag Hydrox-Simeth 30 ml PO Q6HR 04/03/21 04/03/21 Unknown History [id number]/5Ml Susp] Bismuth Subsalicylate [Kaopectate] 262 mg PO PRN PRN 04/03/21 04/03/21 Unknown History Docusate Sodium [Colace] 100 mg PO BID PRN 04/03/21 04/03/21 Unknown History amLODIPine [Norvasc] 10 mg PO DAILY 04/03/21 04/03/21 Unknown History Active Meds: Active Medications Acetaminophen (Acetaminophen 325 Mg Tab) 650 mg PO Q6H PRN PRN Reason: Pain, Mild (1-3) Last Admin: 04/08/21 21:15 Dose: 650 mg Documented by: Al Hydrox/Mg Hydrox/Simethicone (Alum-Mag Hydroxide-Simethicone [phone]/5ml Oral Liqd 30 Ml) 30 ml PO Q6H PRN PRN Reason: Indigestion Last Admin: 04/03/21 22:49 Dose: 30 ml Documented by: Amlodipine Besylate (Amlodipine 10 Mg Tab) 10 mg PO DAILY [facility] Last Admin: 04/09/21 09:33 Dose: 10 mg Documented by: Citalopram Hydrobromide (Citalopram 20 Mg Tab) 20 mg PO QDAY [facility] Last Admin: 04/09/21 09:33 Dose: 20 mg Documented by: Docusate Sodium (Docusate Sodium 100 Mg Cap) 100 mg PO BID PRN PRN Reason: consitpation Hydrochlorothiazide (Hydrochlorothiazide 25 Mg Tab) 25 mg PO QDAY [facility] Last Admin: 04/09/21 09:33 Dose: 25 mg Documented by: Levetiracetam (Levetiracetam 500 Mg Tab) 500 mg PO BID [facility] Last Admin: 04/09/21 09:33 Dose: 500 mg Documented by: Quetiapine Fumarate (Quetiapine 200 Mg Tab) 400 mg PO QHS [facility] Last Admin: 04/08/21 21:15 Dose: 400 mg Documented by: Quetiapine Fumarate (Quetiapine 200 Mg Tab) 200 mg PO DAILY [facility] Last Admin: 04/09/21 09:33 Dose: 200 mg Documented by: Results - Results Labs/Vitals: Laboratory Last Values WBC 5.8 K/mm3 (4.5-11.0) 04/05/21 09:15 RBC 4.87 M/mm3 (3.65-5.03) 04/05/21 09:15 Hgb 13.6 gm/dl (11.8-15.2) 04/05/21 09:15 Hct 41.3 % (35.5-45.6) 04/05/21 09:15 MCV 85 fl (84-94) 04/05/21 09:15 MCH 28 pg (28-32) 04/05/21 09:15 MCHC 33 % (32-34) 04/05/21 09:15 RDW 15.1 % (13.2-15.2) 04/05/21 09:15 Plt Count 194 K/mm3 (140-440) 04/05/21 09:15 Lymph % (Auto) 24.1 % (13.4-35.0) 04/05/21 09:15 [place] % (Auto) 5.7 % (0.0-7.3) 04/05/21 09:15 Eos % (Auto) 3.9 % (0.0-4.3) 04/05/21 09:15 Baso % (Auto) 0.3 % (0.0-1.8) 04/05/21 09:15 Lymph # (Auto) 1.4 K/mm3 (1.2-5.4) 04/05/21 09:15 [place] # (Auto) 0.3 K/mm3 (0.0-0.8) 04/05/21 09:15 Eos # (Auto) 0.2 K/mm3 (0.0-0.4) 04/05/21 09:15 Baso # (Auto) 0.0 K/mm3 (0.0-0.1) 04/05/21 09:15 Seg Neutrophils % 66.0 % (40.0-70.0) 04/05/21 09:15 Seg Neutrophils # 3.8 K/mm3 (1.8-7.7) 04/05/21 09:15 Sodium 139 mmol/L (137-145) 04/05/21 09:15 Potassium 4.1 mmol/L (3.6-5.0) 04/05/21 09:15 Chloride 101.7 mmol/L (98-107) 04/05/21 09:15 Carbon Dioxide 26 mmol/L (22-30) 04/05/21 09:15 Anion Gap 15 mmol/L 04/05/21 09:15 BUN 15 mg/dL (9-20) 04/05/21 09:15 Creatinine 0.6 mg/dL (0.8-1.3) L 04/05/21 09:15 Estimated GFR > 60 ml/min 04/05/21 09:15 BUN/Creatinine Ratio 25 % 04/05/21 09:15 Glucose 103 mg/dL (75-100) H 04/05/21 09:15 POC Glucose 107 mg/dL (70-105) H 04/03/21 22:22 Hemoglobin A1c 5.5 % (4-6) 04/05/21 09:15 Calcium 9.8 mg/dL (8.4-10.2) D 04/05/21 09:15 Total Bilirubin 0.50 mg/dL (0.1-1.2) 04/05/21 09:15 AST 21 units/L (5-40) 04/05/21 09:15 ALT 18 units/L (7-56) 04/05/21 09:15 Alkaline Phosphatase 67 units/L (35-129) 04/05/21 09:15 Total Protein 6.9 g/dL (6.3-8.2) 04/05/21 09:15 Albumin 4.0 g/dL (3.9-5) 04/05/21 09:15 Albumin/Globulin Ratio 1.4 % 04/05/21 09:15 TSH 1.130 mlU/mL (0.270-4.200) 04/05/21 09:15 Coronavirus (PCR) Negative (Negative) 04/08/21 Unknown Hepatitis A IgM Ab Non-reactive (NonReactive) 04/05/21 09:15 Hep Bs Antigen Nonreactive (Negative) 04/05/21 09:15 Hep B Core IgM Ab Non-reactive (NonReactive) 04/05/21 09:15 Hepatitis C Antibody Non-reactive (NonReactive) 04/05/21 09:15 Last Vital Signs Temp 98.3 F 04/09/21 07:42 Pulse 83 04/09/21 09:33 Resp 18 04/09/21 07:42 BP 129/92 04/09/21 09:33 Pulse Ox 96 04/09/21 07:42
[2021-04-09] MEDS: ACETAMINOPHEN 325 MG TAB PO PRN (21:09)
[2021-04-09] MEDS: DOCUSATE SODIUM 100 MG CAP PO PRN (21:31)
[2021-04-10] MEDS: amLODIPine 10 MG TAB PO SCH (09:10)
[2021-04-10] MEDS: CITALOPRAM 20 MG TAB PO SCH (09:10)
[2021-04-10] MEDS: levETIRAcetam 500 MG TAB PO SCH ×2 (09:10→21:10)
[2021-04-10] MEDS: QUEtiapine 200 MG TAB PO SCH ×2 (09:13→21:10)
[2021-04-10] MEDS: hydroCHLOROthiazide 25 MG TAB PO SCH (09:13)
[2021-04-10] MEDS: ACETAMINOPHEN 325 MG TAB PO PRN ×2 (09:32→20:42)
[2021-04-10] MEDS: DOCUSATE SODIUM 100 MG CAP PO PRN ×2 (09:33→20:42)
--- NOTE | 2021-04-10 10:12 | Discharge Summary ---
Providers - Providers Date of Admission: 04/03/21 21:42 Date of discharge: 04/10/21 Attending physician: JEFFREY MCCLAIN MD 04/03/21 14:13 Consult to Physician [CONS] Routine Comment: Consulting Provider: GAIL APONTE Physician Instructions: Reason For Exam: manage medical condition Primary care physician: [facility] [employer] Hospitalization Reason for admission: suicidal Admitting Diagnosis: F33.9 - MAJOR DEPRESSIVE DISORDER, RECURRENT, UNSPECIFIED Condition: Stable Hospital course: The patient was provided inpatient psychiatric treatment with safe and supportive care, medication adjustment, adverse effect monitoring, medical evaluations, medical treatments, assessment and psycho-education. The patient's mood, cognition, behavior, moral support are improved and stabilized. St the time of discharge, the patient had no endangering behavior and no debilitating adverse effects. The patient agreed on potential consequences of no treatment and gave informed consent. 04/06 The patient was seen today. He says he feels better. He endorses SI with no plan, but states he's feeling a lot better and it's not as severe. He denies hallucinations of any kind. 04/07 The patient was seen today. He says he is going to a PHP program. The patient says he feels better. He denies SI/HI or hallucinations of any kind. Will plan for discharge once the has outpatient resources in place for continuity of mental health 04/08 The patient was seen today. He denies SI/HI. He also denies hallucinations. He says his mood is "okay." The patient will be discharged once the social worker aide is able to set him up for PHP program to ensue continuity of psych services. 04/09 The patient was seen today. He denies SI/HI. He also denies hallucinations. He is awaiting to be set up with a PHP program in another state by the to maintain continuity of care Disposition: 01 HOME / SELF CARE / HOMELESS Time spent for discharge: 35 Allergies/Adverse Reactions: Allergies haloperidol [From Haldol] Allergy (Intermediate, Verified 02/28/21 21:07) Unknown ibuprofen [From Motrin] Allergy (Intermediate, Verified 02/28/21 21:07) Unknown Vital Signs: Last Vital Signs Temp 97.9 F 04/10/21 08:13 Pulse 98 H 04/10/21 09:10 Resp 19 04/10/21 08:13 BP 130/88 04/10/21 09:10 Pulse Ox 98 04/10/21 08:13 Last Lab: Laboratory Last Values WBC 5.8 K/mm3 (4.5-11.0) 04/05/21 09:15 RBC 4.87 M/mm3 (3.65-5.03) 04/05/21 09:15 Hgb 13.6 gm/dl (11.8-15.2) 04/05/21 09:15 Hct 41.3 % (35.5-45.6) 04/05/21 09:15 MCV 85 fl (84-94) 04/05/21 09:15 MCH 28 pg (28-32) 04/05/21 09:15 MCHC 33 % (32-34) 04/05/21 09:15 RDW 15.1 % (13.2-15.2) 04/05/21 09:15 Plt Count 194 K/mm3 (140-440) 04/05/21 09:15 Lymph % (Auto) 24.1 % (13.4-35.0) 04/05/21 09:15 [place] % (Auto) 5.7 % (0.0-7.3) 04/05/21 09:15 Eos % (Auto) 3.9 % (0.0-4.3) 04/05/21 09:15 Baso % (Auto) 0.3 % (0.0-1.8) 04/05/21 09:15 Lymph # (Auto) 1.4 K/mm3 (1.2-5.4) 04/05/21 09:15 [place] # (Auto) 0.3 K/mm3 (0.0-0.8) 04/05/21 09:15 Eos # (Auto) 0.2 K/mm3 (0.0-0.4) 04/05/21 09:15 Baso # (Auto) 0.0 K/mm3 (0.0-0.1) 04/05/21 09:15 Seg Neutrophils % 66.0 % (40.0-70.0) 04/05/21 09:15 Seg Neutrophils # 3.8 K/mm3 (1.8-7.7) 04/05/21 09:15 Sodium 139 mmol/L (137-145) 04/05/21 09:15 Potassium 4.1 mmol/L (3.6-5.0) 04/05/21 09:15 Chloride 101.7 mmol/L (98-107) 04/05/21 09:15 Carbon Dioxide 26 mmol/L (22-30) 04/05/21 09:15 Anion Gap 15 mmol/L 04/05/21 09:15 BUN 15 mg/dL (9-20) 04/05/21 09:15 Creatinine 0.6 mg/dL (0.8-1.3) L 04/05/21 09:15 Estimated GFR > 60 ml/min 04/05/21 09:15 BUN/Creatinine Ratio 25 % 04/05/21 09:15 Glucose 103 mg/dL (75-100) H 04/05/21 09:15 POC Glucose 107 mg/dL (70-105) H 04/03/21 22:22 Hemoglobin A1c 5.5 % (4-6) 04/05/21 09:15 Calcium 9.8 mg/dL (8.4-10.2) D 04/05/21 09:15 Total Bilirubin 0.50 mg/dL (0.1-1.2) 04/05/21 09:15 AST 21 units/L (5-40) 04/05/21 09:15 ALT 18 units/L (7-56) 04/05/21 09:15 Alkaline Phosphatase 67 units/L (35-129) 04/05/21 09:15 Total Protein 6.9 g/dL (6.3-8.2) 04/05/21 09:15 Albumin 4.0 g/dL (3.9-5) 04/05/21 09:15 Albumin/Globulin Ratio 1.4 % 04/05/21 09:15 TSH 1.130 mlU/mL (0.270-4.200) 04/05/21 09:15 Coronavirus (PCR) Negative (Negative) 04/08/21 Unknown Hepatitis A IgM Ab Non-reactive (NonReactive) 04/05/21 09:15 Hep Bs Antigen Nonreactive (Negative) 04/05/21 09:15 Hep B Core IgM Ab Non-reactive (NonReactive) 04/05/21 09:15 Hepatitis C Antibody Non-reactive (NonReactive) 04/05/21 09:15 Core Measure Documentation - Palliative Care Palliative Care/ Comfort Measures: Not Applicable - Core Measures Any of the following diagnoses?: none Exam - Constitutional Vitals: Temp Pulse Resp BP Pulse Ox 97.9 F 98 H 19 130/88 98 04/10/21 08:13 04/10/21 09:10 04/10/21 08:13 04/10/21 09:10 04/10/21 08:13 General appearance: Present: no acute distress - EENT Eyes: Present: PERRL, EOM intact ENT: hearing intact, clear oral mucosa - Neck Neck: Present: supple, normal ROM - Respiratory Respiratory effort: normal Plan Activity: advance as tolerated Weight Bearing Status: Weight Bear as Tolerated Care Plan Goals: Maintain good and stable mental health Plan of Treatment: The patient should be compliant with medications, not to use drugs, and not to drink alcohol. The patient understands that if suicidal ideas, homicidal ideas or any endangering feeling arise, the patient should seek assistance including, but not limited to crisis hotline, and emergency room. Health Concerns: SZ, htn, alcoholism Assessment: MDD Follow up with: PRIMARY CARE, [Primary Care Provider] - 7 Days Prescriptions: QUEtiapine [SEROquel] 400 mg PO QHS 30 Days #60 tablet Antacid [Alum-Mag Hydrox-Simeth [phone]/5Ml] 30 ml PO Q6HR #1 amLODIPine 10 mg PO DAILY #30 cloNIDine [Catapres] 0.2 mg PO Q12HR #30 tablet Citalopram [Celexa] 20 mg PO QDAY 30 Days #30 Docusate Sodium [Colace CAP] 100 mg PO BID PRN #60 cap PRN Reason: consitpation hydroCHLOROthiazide [Hydrochlorothiazide] 12.5 mg PO DAILY #30 cap Bismuth Subsalicylate [Kaopectate] 262 mg PO PRN PRN #30 PRN Reason: Indigestion levETIRAcetam [Keppra TAB] 500 mg PO BID 30 Days #60 tablet QUEtiapine [SEROquel] 200 mg PO DAILY 30 Days #30 tablet
[2021-04-11] MEDS: QUEtiapine 200 MG TAB PO SCH (09:29)
[2021-04-11] MEDS: hydroCHLOROthiazide 25 MG TAB PO SCH (09:29)
[2021-04-11] MEDS: amLODIPine 10 MG TAB PO SCH (09:30)
[2021-04-11] MEDS: levETIRAcetam 500 MG TAB PO SCH (09:30)
[2021-04-11] MEDS: DOCUSATE SODIUM 100 MG CAP PO PRN (09:30)
[2021-04-11] MEDS: CITALOPRAM 20 MG TAB PO SCH (09:30)
[2021-04-11] MEDS: ACETAMINOPHEN 325 MG TAB PO PRN (09:30)
[2021-04-11 09:31] VITALS: BP 137/96
--- NOTE | 2021-04-11 10:21 | Discharge Summary ---
Providers - Providers Date of Admission: 04/03/21 21:42 Date of discharge: 04/11/21 Attending physician: JEFFREY MCCLAIN MD 04/03/21 14:13 Consult to Physician [CONS] Routine Comment: Consulting Provider: GAIL APONTE Physician Instructions: Reason For Exam: manage medical condition Primary care physician: [employer]ER Hospitalization Reason for admission: depression, SI Admitting Diagnosis: F33.9 - MAJOR DEPRESSIVE DISORDER, RECURRENT, UNSPECIFIED Condition: Stable Hospital course: The patient was provided inpatient psychiatric treatment with safe and supportive care, medication adjustment, adverse effect monitoring, medical evaluations, medical treatments, assessment and psycho-education. The patient's mood, cognition, behavior, moral support are improved and stabilized. St the time of discharge, the patient had no endangering behavior and no debilitating adverse effects. The patient agreed on potential consequences of no treatment and gave informed consent. 04/06 The patient was seen today. He says he feels better. He endorses SI with no plan, but states he's feeling a lot better and it's not as severe. He denies hallucinations of any kind. 04/07 The patient was seen today. He says he is going to a PHP program. The patient says he feels better. He denies SI/HI or hallucinations of any kind. Will plan for discharge once the has outpatient resources in place for continuity of mental health 04/08 The patient was seen today. He denies SI/HI. He also denies hallucinations. He says his mood is "okay." The patient will be discharged once the social work therapist is able to set him up for PHP program to ensue continuity of psych services. 04/09 The patient was seen today. He denies SI/HI. He also denies hallucinations. He is awaiting to be set up with a PHP program in another state by the to maintain continuity of care Disposition: 01 HOME / SELF CARE / HOMELESS Time spent for discharge: 35 Allergies/Adverse Reactions: Allergies haloperidol [From Haldol] Allergy (Intermediate, Verified 02/28/21 21:07) Unknown ibuprofen [From Motrin] Allergy (Intermediate, Verified 02/28/21 21:07) Unknown Vital Signs: Last Vital Signs Temp 98.2 F 04/10/21 20:02 Pulse 84 04/11/21 09:30 Resp 18 04/10/21 20:42 BP 137/96 04/11/21 09:30 Pulse Ox 98 04/10/21 20:02 Last Lab: Laboratory Last Values WBC 5.8 K/mm3 (4.5-11.0) 04/05/21 09:15 RBC 4.87 M/mm3 (3.65-5.03) 04/05/21 09:15 Hgb 13.6 gm/dl (11.8-15.2) 04/05/21 09:15 Hct 41.3 % (35.5-45.6) 04/05/21 09:15 MCV 85 fl (84-94) 04/05/21 09:15 MCH 28 pg (28-32) 04/05/21 09:15 MCHC 33 % (32-34) 04/05/21 09:15 RDW 15.1 % (13.2-15.2) 04/05/21 09:15 Plt Count 194 K/mm3 (140-440) 04/05/21 09:15 Lymph % (Auto) 24.1 % (13.4-35.0) 04/05/21 09:15 [place] % (Auto) 5.7 % (0.0-7.3) 04/05/21 09:15 Eos % (Auto) 3.9 % (0.0-4.3) 04/05/21 09:15 Baso % (Auto) 0.3 % (0.0-1.8) 04/05/21 09:15 Lymph # (Auto) 1.4 K/mm3 (1.2-5.4) 04/05/21 09:15 R[place] # (Auto) 0.3 K/mm3 (0.0-0.8) 04/05/21 09:15 Eos # (Auto) 0.2 K/mm3 (0.0-0.4) 04/05/21 09:15 Baso # (Auto) 0.0 K/mm3 (0.0-0.1) 04/05/21 09:15 Seg Neutrophils % 66.0 % (40.0-70.0) 04/05/21 09:15 Seg Neutrophils # 3.8 K/mm3 (1.8-7.7) 04/05/21 09:15 Sodium 139 mmol/L (137-145) 04/05/21 09:15 Potassium 4.1 mmol/L (3.6-5.0) 04/05/21 09:15 Chloride 101.7 mmol/L (98-107) 04/05/21 09:15 Carbon Dioxide 26 mmol/L (22-30) 04/05/21 09:15 Anion Gap 15 mmol/L 04/05/21 09:15 BUN 15 mg/dL (9-20) 04/05/21 09:15 Creatinine 0.6 mg/dL (0.8-1.3) L 04/05/21 09:15 Estimated GFR > 60 ml/min 04/05/21 09:15 BUN/Creatinine Ratio 25 % 04/05/21 09:15 Glucose 103 mg/dL (75-100) H 04/05/21 09:15 POC Glucose 107 mg/dL (70-105) H 04/03/21 22:22 Hemoglobin A1c 5.5 % (4-6) 04/05/21 09:15 Calcium 9.8 mg/dL (8.4-10.2) D 04/05/21 09:15 Total Bilirubin 0.50 mg/dL (0.1-1.2) 04/05/21 09:15 AST 21 units/L (5-40) 04/05/21 09:15 ALT 18 units/L (7-56) 04/05/21 09:15 Alkaline Phosphatase 67 units/L (35-129) 04/05/21 09:15 Total Protein 6.9 g/dL (6.3-8.2) 04/05/21 09:15 Albumin 4.0 g/dL (3.9-5) 04/05/21 09:15 Albumin/Globulin Ratio 1.4 % 04/05/21 09:15 TSH 1.130 mlU/mL (0.270-4.200) 04/05/21 09:15 Coronavirus (PCR) Negative (Negative) 04/08/21 Unknown Hepatitis A IgM Ab Non-reactive (NonReactive) 04/05/21 09:15 Hep Bs Antigen Nonreactive (Negative) 04/05/21 09:15 Hep B Core IgM Ab Non-reactive (NonReactive) 04/05/21 09:15 Hepatitis C Antibody Non-reactive (NonReactive) 04/05/21 09:15 Core Measure Documentation - Palliative Care Palliative Care/ Comfort Measures: Not Applicable - Core Measures Any of the following diagnoses?: none Exam - Constitutional Vitals: Temp Pulse Resp BP Pulse Ox 98.2 F 84 18 137/96 98 04/10/21 20:02 04/11/21 09:30 04/10/21 20:42 04/11/21 09:30 04/10/21 20:02 General appearance: Present: no acute distress - EENT Eyes: Present: PERRL, EOM intact ENT: hearing intact, clear oral mucosa - Neck Neck: Present: supple, normal ROM - Respiratory Respiratory effort: normal Plan Activity: advance as tolerated Weight Bearing Status: Weight Bear as Tolerated Care Plan Goals: Maintain good and stable mental health Plan of Treatment: The patient should be compliant with medications, not to use drugs, and not to drink alcohol. The patient understands that if suicidal ideas, homicidal ideas or any endangering feeling arise, the patient should seek assistance including, but not limited to crisis hotline, and emergency room. Health Concerns: SZ, htn, alcoholism Assessment: MDD Follow up with: PRIMARY CARE, [Primary Care Provider] - 7 Days Prescriptions: QUEtiapine [SEROquel] 400 mg PO QHS 30 Days #60 tablet Antacid [Alum-Mag Hydrox-Simeth [id number]] 30 ml PO Q6HR #1 amLODIPine 10 mg PO DAILY #30 cloNIDine [Catapres] 0.2 mg PO Q12HR #30 tablet Citalopram [Celexa] 20 mg PO QDAY 30 Days #30 Docusate Sodium [Colace CAP] 100 mg PO BID PRN #60 cap PRN Reason: consitpation hydroCHLOROthiazide [Hydrochlorothiazide] 12.5 mg PO DAILY #30 cap Bismuth Subsalicylate [Kaopectate] 262 mg PO PRN PRN #30 PRN Reason: Indigestion levETIRAcetam [Keppra TAB] 500 mg PO BID 30 Days #60 tablet QUEtiapine [SEROquel] 200 mg PO DAILY 30 Days #30 tablet
== END 2021-04-11 17:36 | disposition home or self-care (01) | DRG 885 ==
LOC: UNDOADMIN 13:46 → 3A 13:46 → 5A 21:42
PROVIDERS: ADMIT Psychiatry & Neurology Psychiatry; ATTEND Psychiatry & Neurology Psychiatry
DX: F33.2 Major depressive disorder, recurrent severe without psychotic features (principal); R45.851 Suicidal ideations; K27.3 Acute peptic ulcer, site unspecified, without hemorrhage or perforation; F25.9 Schizoaffective disorder, unspecified; I10 Essential (primary) hypertension; F10.20 Alcohol dependence, uncomplicated; R73.9 Hyperglycemia, unspecified; G40.909 Epilepsy, unspecified, not intractable, without status epilepticus; Z20.822 Contact with and (suspected) exposure to COVID-19; Z79.899 Other long term (current) drug therapy
CPT/HCPCS: 36415; 80048; 80053; 80074; 80307; 80320; 81001; 82962; 83036; 84443; 85025; G0378; G0480; U0003

== ENCOUNTER 2021-10-24 11:19 | Emergency (ER) | payer MEDICARE ==
--- NOTE | 2021-10-24 12:11 | Emergency Department Report ---
ED Psych HPI - General Chief Complaint: Psych Stated Complaint: suicidal Time Seen by Provider: 10/24/21 12:05 Source: patient, EMS Mode of arrival: Ambulatory - History of Present Illness Initial Comments: Patient is 51 years old male with history of schizophrenia, bipolar disorder. Patient presented to the ER for mental health evaluation. Patient stated that he is hearing voices asking him to kill himself. Patient stated that his plan is to cut his throat. Patient also admitted visual hallucination. No homicidal ideation. MD Complaint: suicidal ideation, feels depressed Associated Psychiatric Symptoms: depression, suicidal ideation, auditory hallucinations Quality: constant If Self Harm: admits thoughts of, has plan, self-inflicted trauma - Related Data Home Medications Medication Instructions Recorded Confirmed Last Taken levETIRAcetam [Keppra TAB] 500 mg PO TID 10/25/21 10/25/21 10/22/21 Previous Rx's Medication Instructions Recorded Last Taken Type Citalopram [Celexa] 20 mg PO QDAY 30 Days #30 04/10/21 10/22/21 Rx Docusate Sodium [Colace CAP] 100 mg PO BID PRN #60 cap 04/10/21 10/22/21 Rx QUEtiapine [SEROquel] 200 mg PO DAILY 30 Days #30 tablet 04/10/21 10/22/21 Rx QUEtiapine [SEROquel] 400 mg PO QHS 30 Days #60 tablet 04/10/21 10/22/21 Rx hydroCHLOROthiazide 12.5 mg PO DAILY #30 cap 04/10/21 10/22/21 Rx [Hydrochlorothiazide] Allergies Allergy/AdvReac Type Severity Reaction Status Date / Time haloperidol [From Haldol] Allergy Intermediate Unknown Verified 10/24/21 11:27 ibuprofen [From Motrin] Allergy Intermediate Unknown Verified 10/24/21 11:27 ED Review of Systems ROS: Stated complaint: suicidal Other details as noted in HPI Comment: All other systems reviewed and negative Constitutional: denies: chills, fever Respiratory: denies: cough, shortness of breath, SOB with exertion Cardiovascular: denies: chest pain, palpitations Gastrointestinal: denies: abdominal pain, nausea, vomiting Musculoskeletal: denies: back pain Psychiatric: depression, auditory hallucinations, visual hallucinations, sha cidal thoughts. denies: homicidal thoughts ED Past Medical Hx - Past Medical History Hx Hypertension: Yes Hx Congestive Heart Failure: No Hx Diabetes: No Hx Renal Disease: No Hx Arthritis: No Hx Seizures: Yes Hx Psychiatric Treatment: Yes (Bipolar, Schizophrenia) Hx Asthma: Yes Hx COPD: No Hx Dementia: No Additional medical history: gastric ulcers, ETOH - Surgical History Hx Cholecystectomy: No Hx Appendectomy: No Additional Surgical History: testicular torsion. Left lower extremity skin graft - Social History Smoking Status: Never Smoker - Medications Home Medications: Home Medications Medication Instructions Recorded Confirmed Last Taken Type Citalopram [Celexa] 20 mg PO QDAY 30 Days #30 04/10/21 10/25/21 10/22/21 Rx Docusate Sodium [Colace CAP] 100 mg PO BID PRN #60 cap 04/10/21 10/25/21 10/22/21 Rx QUEtiapine [SEROquel] 200 mg PO DAILY 30 Days #30 tablet 04/10/21 10/25/21 10/22/21 Rx QUEtiapine [SEROquel] 400 mg PO QHS 30 Days #60 tablet 04/10/21 10/25/21 10/22/21 Rx hydroCHLOROthiazide 12.5 mg PO DAILY #30 cap 04/10/21 10/25/21 10/22/21 Rx [Hydrochlorothiazide] levETIRAcetam [Keppra TAB] 500 mg PO TID 10/25/21 10/25/21 10/22/21 History ED Physical Exam - General Limitations: No Limitations General appearance: alert, in no apparent distress - Head Head exam: Present: atraumatic, normocephalic, normal inspection - Eye Eye exam: Present: normal appearance - ENT ENT exam: Present: normal exam, normal orophraynx, mucous membranes moist - Neck Neck exam: Present: normal inspection, full ROM. Absent: tenderness, meningismus - Respiratory Respiratory exam: Present: normal lung sounds bilaterally - Cardiovascular Cardiovascular Exam: Present: regular rate, normal rhythm, normal heart sounds - GI/Abdominal GI/Abdominal exam: Present: soft, normal bowel sounds. Absent: distended, tenderness, guarding, rebound, rigid, organomegaly, mass, bruit, pulsatile mass, hernia - Extremities Exam Extremities exam: Present: normal inspection, full ROM, normal capillary refill. Absent: tenderness, pedal edema, joint swelling, calf tenderness - Back Exam Back exam: Present: normal inspection, full ROM. Absent: CVA tenderness (R), CVA tenderness (L) - Neurological Exam Neurological exam: Present: alert, oriented X3, CN II-XII intact, normal gait, reflexes normal. Absent: motor sensory deficit - Psychiatric Psychiatric exam: Present: anxious, suicidal ideation. Absent: homicidal ideation - Skin Skin exam: Present: warm, intact, normal color ED Course Vital Signs 10/24/21 10/25/21 10/25/21 20:10 03:04 09:06 Temperature 98.0 F 97.2 F L 97.7 F Pulse Rate 61 90 82 Respiratory 18 18 18 Rate Blood Pressure 138/95 161/90 142/98 [Left] O2 Sat by Pulse 96 97 97 Oximetry 10/25/21 10/25/21 20:21 20:23 Temperature 98 F 98 F Pulse Rate 125 H 97 H Respiratory 18 18 Rate Blood Pressure 143/108 153/103 [Left] O2 Sat by Pulse 98 98 Oximetry ED Medical Decision Making - Lab Data Result diagrams: 10/24/21 14:30 10/24/21 14:30 Critical care attestation.: If time is entered above; I have spent that time in minutes in the direct care of this critically ill patient, excluding procedure time. ED Disposition Clinical Impression: Suicidal ideation Schizoaffective disorder Qualifiers: Schizoaffective disorder type: bipolar Qualified Code(s): F25.0 - Schizoaffective disorder, bipolar type Disposition: [address] [place] [address] Is pt being admited?: No Condition: Stable Referrals: CECELIA GARY MD [Primary Care Provider] - 3-5 Days
[2021-10-24 15:15] LABS: Blood Urea Nitrogen 11 mg/dL (9-20); Calcium 9.7 mg/dL (8.4-10.2); Hemolysis Index 13
[2021-10-24 15:19] LABS: Basophils % (Auto) 0.7 % (0.0-1.8); Eosinophils # (Auto) 0.1 K/mm3 (0.0-0.4); Eosinophils % (Auto) 1.2 % (0.0-4.3); Hematocrit 44.2 % (35.5-45.6); Hemoglobin 14.4 gm/dl (11.8-15.2); Lymphocytes # (Auto) 1.3 K/mm3 (1.2-5.4); Lymphocytes % (Auto) 21.5 % (13.4-35.0); Mean Corpuscular HGB Conc 33 % (32-34); Mean Corpuscular Volume 85 fl (84-94); Monocytes # (Auto) 0.5 K/mm3 (0.0-0.8); Monocytes % (Auto) 8.8 % (0.0-7.3); Platelet Count 196 K/mm3 (140-440); Red Blood Count 5.21 M/mm3 (3.65-5.03); Red Cell Distribution Width 14.5 % (13.2-15.2)
[2021-10-24 16:19] LABS: BUN/Creatinine Ratio 18
--- NOTE | 2021-10-25 10:34 | Consultation ---
History of Present Illness - Reason for Consult Consult date: 10/25/21 Reason for consult: SI, hallucinations - History of Present Psychiatric Illness The patient was seen today. He is known to me from previous visits. He says he is hearing voices telling him to cut his throat. He endorses suicidal thoughts and relapse on drinking. The patient says he is depressed and been off his meds for about 8 days. PAST PSYCHIATRIC HISTORY Diagnoses: Depression, Schizophrenia, Alcohol use Disorder Suicide attempts or Self-harm behavior: None reported Prior psychiatric hospitalizations: yes Substance Abuse history: Alcohol Previous psychiatric medications tried: Seroquel, Celexa Outpatient treatment: Yes PAST MEDICAL HISTORY: Seizures, "Gastric Ulcers", and Hypertension Family Psychiatric History: Mother " unknown" SOCIAL HISTORY Marital Status: Single Living Arrangements: Lives with mother Employment Status: Unemployed Access to guns/weapons: None reported Education: 10th grade History of Abuse: None reported Legal History: None reported REVIEW OF SYSTEMS Constitutional: Negative for weight loss ENT: Negative for stridor Respiratory: Negative for cough or hemoptysis All other systems reviewed and are negative MENTAL STATUS EXAMINATION General Appearance and Behavior: Age appropriate, good hygiene, wearing appropriate clothes, poor eye contact, irritable Cooperation: uncooperative, guarded Mood: Depressed Affect and affective range: congruent with mood Thought Process: Goal directed Thought Content: Suicidal, hallucinations Speech: normal tone and pace Suicidal Ideation: Yes Homicidal Ideation: Denies Hallucinations: Auditory Delusions: Denies Impulse Control: Impaired Insight and Judgment: Limited insight and poor judgment, Memory: Normal Attention: Normal Orientation: Alert, oriented Assessment and Plan (1) Schizophrenia (2) Alcohol use Disorder Treatment Plan 1013 Seroquel 200 daily, 400qhs Celexa 20mg po daily Medical: per primary Sitter: per primary Disposition: recommend acute psychiatric inpatient treatment Will follow. Thanks Case staffed with Dr. Rodriguez Medications and Allergies Allergies Allergy/AdvReac Type Severity Reaction Status Date / Time haloperidol [From Haldol] Allergy Intermediate Unknown Verified 10/24/21 11:27 ibuprofen [From Motrin] Allergy Intermediate Unknown Verified 10/24/21 11:27 Home Medications Medication Instructions Recorded Confirmed Last Taken Type Citalopram [Celexa] 20 mg PO QDAY 30 Days #30 04/10/21 10/25/21 10/22/21 Rx Docusate Sodium [Colace CAP] 100 mg PO BID PRN #60 cap 04/10/21 10/25/21 10/22/21 Rx QUEtiapine [SEROquel] 200 mg PO DAILY 30 Days #30 tablet 04/10/21 10/25/21 10/22/21 Rx QUEtiapine [SEROquel] 400 mg PO QHS 30 Days #60 tablet 04/10/21 10/25/21 10/22/21 Rx hydroCHLOROthiazide 12.5 mg PO DAILY #30 cap 04/10/21 10/25/21 10/22/21 Rx [Hydrochlorothiazide] levETIRAcetam [Keppra TAB] 500 mg PO TID 10/25/21 10/25/21 10/22/21 History Mental Status Exam - Vital signs Last Vital Signs Temp 97.2 F L 10/25/21 03:04 Pulse 90 10/25/21 03:04 Resp 20 10/25/21 09:06 BP 161/90 10/25/21 03:04 Pulse Ox 97 10/25/21 09:06 Results Result Diagrams: 10/24/21 14:30 10/24/21 14:30 Abnormal lab results 10/24/21 10/24/21 10/24/21 Range/Units 14:30 14:30 14:30 RBC 5.21 H (3.65-5.03) M/mm3 [place] % (Auto) 8.8 H (0.0-7.3) % Sodium 134 L (137-145) mmol/L Chloride 94.5 L (98-107) mmol/L Creatinine 0.6 L (0.8-1.3) mg/dL Salicylates < 0.3 L (2.8-20.0) mg/dL Acetaminophen (10.0-30.0) ug/mL 10/24/21 Range/Units 14:30 RBC (3.65-5.03) M/mm3 [place] % (Auto) (0.0-7.3) % Sodium (137-145) mmol/L Chloride (98-107) mmol/L Creatinine (0.8-1.3) mg/dL Salicylates (2.8-20.0) mg/dL Acetaminophen 5.0 L (10.0-30.0) ug/mL All other labs normal.
[2021-10-25] MEDS ORDERED: LORazepam 2 MG/ML VIAL IV PRN (11:00)
[2021-10-25] MEDS ORDERED: QUEtiapine 200 MG TAB PO SCH ×2 (11:00→22:00)
[2021-10-25] MEDS ORDERED: chlordiazePOXIDE 25 MG CAP PO PRN (11:00)
[2021-10-25] MEDS ORDERED: CITALOPRAM 20 MG TAB PO SCH (11:00)
[2021-10-25 12:24] LABS: Bilirubin,Urine NEG (Negative); Blood,Urine NEG (Negative); Color,Urine Yellow (Yellow); Mucus,Urine FEW /HPF; RBC,Urine < 1.0 /HPF (0.0-6.0); WBC,Urine < 1.0 /HPF (0.0-6.0)
[2021-10-25 12:30] LABS: Amphetamine Screen,Urine Negative; Benzodiazepines Screen,Urine Negative; Cannabinoid Screen,Urine Negative; Cocaine Screen,Urine Negative; Methadone Screen,Urine Negative; Opiate Screen,Urine Negative
--- NOTE | 2021-10-25 13:51 | Emergency Department Report ---
Blank Doc - Documentation Documentation: 51-year-old male presents to the hospital with psychosis, suicidal ideation, and alcohol relapse. Recommendation to continue 1013 as per mental health. Compliant with p.o. mental health medications. On [facility]WA protocol. Awaiting placement
[2021-10-25 20:25] VITALS: BP 153/103
== END 2021-10-26 02:27 ==
LOC: ED 11:19
DX: R45.851 Suicidal ideations (principal); F25.0 Schizoaffective disorder, bipolar type; I10 Essential (primary) hypertension; J45.909 Unspecified asthma, uncomplicated; Z88.5 Allergy status to narcotic agent; Z88.6 Allergy status to analgesic agent; Z20.822 Contact with and (suspected) exposure to COVID-19
CPT/HCPCS: 36415; 80048; 80307; 81001; 85025; 99285; U0003; 80320; G0480